=== PATIENT | male | born 1965 | race Caucasian/White ===

== ENCOUNTER → 2020-06-18 13:13 | Outpatient (BNVA) | payer OTHER, SELFPAY | PROVIDERS: PCP Nurse Practitioner Primary Care; Referring Provider Nurse Practitioner Primary Care; Visit Provider Surgery | DX: Z12.11 Encounter for screening for malignant neoplasm of colon (principal) | CPT/HCPCS: 99202 ==

== ENCOUNTER 2020-08-01 07:39 | Day surgery (SDC) | payer OTHER, SELFPAY ==
[2020-07-28 10:21] VITALS: BMI 26.6
--- NOTE | 2020-07-31 10:35 | HO.ANESPROP2 ---
Documented by User: Cindy Mora 07/31/20 10:37 HPI - Anesthesia Eval Consult details Narrative: 55yo M for Colonoscopy +ETOH/past substance abuse - ? amt or last used PMFSH Past Medical History Medical History Alcohol abuse Anxiety Back pain BPH (benign prostatic hyperplasia) Colon cancer screening Depression GERD (gastroesophageal reflux disease) Gout High cholesterol HTN (hypertension) Hx of substance abuse Family History Family History Mother History of brain cancer Surgical History Surgical History No significant past surgical history Social History Social History (Updated 06/18/20 @ 13:30 by CHU Morales) Alcohol intake: current Smoking Status: Current every day smoker Packs Per Day: 0.5 Cigarettes Per Day: 10.0 Years Smoked: 30 Smoked in Last 30 Days: Yes Use of substances other than those prescribed or required for medical reasons: Yes Substance Use Frequency: Occasionally Advance Directives: No Advance Directives Information Provided: No Advance Directives on File: No Meds Allergies Allergy/AdvReac Type Severity Reaction Status Date / Time seasonal/environmental Allergy Intermediate Eye Uncoded 08/01/20 07:47 Swelling Home Medications Medication Instructions Recorded Confirmed Type allopurinol 300 mg tablet 600 mg PO DAILY 06/18/20 07/28/20 History clonidine HCl 0.1 mg tablet 0.1 mg PO BID 06/18/20 07/28/20 History divalproex 500 mg tablet,delayed 1,000 mg PO BID 06/18/20 07/28/20 History release ergocalciferol (vitamin D2) 1,250 1,250 mcg PO QWEEK 06/18/20 07/28/20 History mcg (50,000 unit) capsule ibuprofen 600 mg tablet 600 mg PO QID 06/18/20 07/28/20 History lisinopril 20 mg tablet 20 mg PO DAILY 06/18/20 07/28/20 History loratadine 10 mg tablet 10 mg PO DAILY PRN 06/18/20 07/28/20 History olanzapine 20 mg tablet 20 mg PO BEDTIME 06/18/20 07/28/20 History omeprazole 20 mg capsule,delayed 20 mg PO DAILY 06/18/20 07/28/20 History release quetiapine 200 mg tablet 200 mg PO BEDTIME 06/18/20 07/28/20 History valacyclovir 500 mg tablet 500 mg PO DAILY 06/18/20 07/28/20 History Exam Exam Date and Time: July 31, 2020 1035 Height,Weight and Vital Signs: Height 5 ft 11 in Weight 86.636 kg Assessment and Plan Assessment Anesthesia Assessment: Chart Reviewed Documented by User: Monica Shah 08/01/20 08:05 PMFSH Past Medical History Medical History Alcohol abuse Anxiety Back pain BPH (benign prostatic hyperplasia) Colon cancer screening Depression GERD (gastroesophageal reflux disease) Gout High cholesterol HTN (hypertension) Hx of substance abuse Family History Family History Mother History of brain cancer Surgical History Surgical History No significant past surgical history Social History Social History (Updated 06/18/20 @ 13:30 by CHU Morales) Alcohol intake: current Smoking Status: Current every day smoker Packs Per Day: 0.5 Cigarettes Per Day: 10.0 Years Smoked: 30 Smoked in Last 30 Days: Yes Use of substances other than those prescribed or required for medical reasons: Yes Substance Use Frequency: Occasionally Advance Directives: No Advance Directives Information Provided: No Advance Directives on File: No Meds Allergies Allergy/AdvReac Type Severity Reaction Status Date / Time seasonal/environmental Allergy Intermediate Eye Uncoded 08/01/20 07:47 Swelling Home Medications Medication Instructions Recorded Confirmed Type allopurinol 300 mg tablet 600 mg PO DAILY 06/18/20 07/28/20 History clonidine HCl 0.1 mg tablet 0.1 mg PO BID 06/18/20 07/28/20 History divalproex 500 mg tablet,delayed 1,000 mg PO BID 06/18/20 07/28/20 History release ergocalciferol (vitamin D2) 1,250 1,250 mcg PO QWEEK 06/18/20 07/28/20 History mcg (50,000 unit) capsule ibuprofen 600 mg tablet 600 mg PO QID 06/18/20 07/28/20 History lisinopril 20 mg tablet 20 mg PO DAILY 06/18/20 07/28/20 History loratadine 10 mg tablet 10 mg PO DAILY PRN 06/18/20 07/28/20 History olanzapine 20 mg tablet 20 mg PO BEDTIME 06/18/20 07/28/20 History omeprazole 20 mg capsule,delayed 20 mg PO DAILY 06/18/20 07/28/20 History release quetiapine 200 mg tablet 200 mg PO BEDTIME 06/18/20 07/28/20 History valacyclovir 500 mg tablet 500 mg PO DAILY 06/18/20 07/28/20 History Exam Airway Mallampati Class: II TM Dist: >3cm Neck ROM: Full Heart: RRR Lungs: CTA
[2020-08-01 08:05] VITALS: BP 126/84; PULSE 83; RESP 18; TEMP 36.8; O2SAT 97
--- NOTE | 2020-08-01 08:06 | P.HPSUR_ITS ---
Pre-Procedural Eval Section B Chief Complaint: screening Details of Present Illness: for screening colonoscopy Relevant Family History (Specify if Yes): No Relevant Social History: None Present Medications: see Short Stay Collaborative assessment Medical History: Significant History (bph) Allergies: Allergies Allergy/AdvReac Type Severity Reaction Status Date / Time seasonal/environmental Allergy Intermediate Eye Uncoded 08/01/20 07:47 Swelling Review of Systems Sugical H&P ROS: Negative: Constitution, Cardiovascular, Respiratory, Neurological, Psychiatric, Hem-Onc, Allergic/Immunologic, Gastrointestinal, Genitourinary, Musculoskeletal, Integumentary, Endocrine and Eyes/ Ears/Nose/Throat Exam Surgical H&P Exam: Normal: HEENT, Normal: Heart, Normal: Lungs, Normal: Extremities, Normal: Abdomen, Normal: Skin and Normal: Neurological Plan Diagnosis/Plan: Unchanged I have reviewed the history and physical and performed a pertinent physical examination on my patient. No changes have occurred unless specified.
[2020-08-01] MEDS: Lactated Ringers 1,000 ML 100 ML IVCONT (08:14)
[2020-08-01 09:00] VITALS: BP 101/66; PULSE 78; RESP 14; TEMP 36.4; O2SAT 97
--- NOTE | 2020-08-01 09:04 | PM.OP ---
Brief Operative Note Date of Service: 08/01/20 Pre-op diagnosis: colon ca screen Post-op diagnosis: other (flat polyp, hepatic flexure, small polyp level 20 and 10) Procedure: colonoscopy, polypectomy with forceps x 1, with hot snare x 2 Surgeon: Harsha Kemp MD Anesthesia: MAC Estimated blood loss (mL): 3 Pathology: other (polyps x 3) Condition: stable Disposition: PACU
[2020-08-01 09:15] VITALS: BP 114/83; PULSE 77; RESP 16; O2SAT 100
--- NOTE | 2020-08-01 09:26 | HO.POSTANES ---
Post Anesthesia Evaluation Post Anesthesia Evaluation Vital Signs: Vital Signs Temp Pulse Resp BP Pulse Ox 08/01/20 09:15 77 16 114/83 100 08/01/20 09:00 97.6 F 78 14 101/66 97 08/01/20 08:05 98.3 F 83 18 126/84 97 Anesthesia: Monitored Mental Status: Awake Pain Control: Satisfactory Nausea/Vomiting: None Hydration: Adequate Anesthesia-Related Issues: No Anes. Related Issues
[2020-08-01 09:30] VITALS: BP 133/86; PULSE 77; RESP 16; TEMP 36.5; O2SAT 97
--- NOTE | 2020-08-01 10:06 | OP_ITS ---
SURGEON: Harsha Kemp MD INDICATIONS: The patient is a 55-year-old male referred for screening colonoscopy. He understood the technique of procedure. The patient is aware of the risks, benefits, and alternatives. PREOPERATIVE DIAGNOSIS: Colon cancer screening. POSTOPERATIVE DIAGNOSIS: PROCEDURE PERFORMED: Colonoscopy with polypectomy of a flat polyp at the hepatic flexure using cold forceps, polypectomy using hot snare of a small polyp at level 20, and polypectomy using hot snare of a polyp at level 10 cm. ESTIMATED BLOOD LOSS: COMPLICATIONS: ANESTHESIA: ASSISTANTS: SPECIMENS: POSTOPERATIVE DIAGNOSES: 1. Flat polyp about 1 cm in size, at the hepatic flexure. 2. Small polyp about 5 mm at level 20 cm and small polyp about 5 mm at level 10 cm. DESCRIPTION OF PROCEDURE: The patient was brought to the operating, placed in left lateral decubitus position under monitored anesthesia care. A full digital rectal exam was done. There were no palpable anal canal lesions. The tip of the Olympus colonoscope was introduced gently through the anal orifice, advanced with insufflation all the way to the cecum. The cecum was intubated. The cecum was identified by visualization of the ileocecal valve as well as the appendiceal orifice, but the cecal mucosa was unremarkable. The scope was gradually withdrawn with careful examination of the entire colonic mucosa being done with scope withdrawal. The patient had some segments of colon with thin amount of stool, so we had to do periodic irrigation and suctioning. It was however unlikely that any lesion may have been missed. There was note of a flat polyp on a fold in the hepatic flexure. This was about 1 cm and was elongated in shape. We proceeded to remove this with multiple bites of cold forceps. It was difficult to ascertain whether this was completely removed in view of the blood that was seen on the polypectomy site. Proceeded to carefully withdraw the scope with careful examination of the rest of the colonic mucosa. There was note of a small polyp about 5 mm at level 20 and this was removed using hot snare. A polyp at level 10 cm was also removed using hot snare. The rest of the rectum and anal canal were unremarkable, but the scope was then withdrawn completely with de-sufflation. The patient tolerated the procedure well and there were no complications noted. In view of the presence of the flat polyp at the hepatic flexure, I would recommend repeating the colonoscopy in the next 6-12 months depending on the path report. I will discuss with the patient in the office. MD GRAY Guevara/MICHELLE / [id number] MTDD
== END 2020-08-01 10:15 | disposition home or self-care (01) ==
PROVIDERS: PCP Nurse Practitioner Primary Care; Visit Provider Surgery
PROC: 0DJD8ZZ Inspection of Lower Intestinal Tract, Via Natural or Artificial Opening Endoscopic (ICD-10-PCS; CPT 45378; principal; 2020-08-01 08:30)
DX: Z12.11 Encounter for screening for malignant neoplasm of colon (principal); D12.3 Benign neoplasm of transverse colon; D12.5 Benign neoplasm of sigmoid colon; D12.8 Benign neoplasm of rectum; N40.0 Benign prostatic hyperplasia without lower urinary tract symptoms; I10 Essential (primary) hypertension; F32.9 Major depressive disorder, single episode, unspecified; F10.10 Alcohol abuse, uncomplicated; F19.11 Other psychoactive substance abuse, in remission; F17.210 Nicotine dependence, cigarettes, uncomplicated; Z80.8 Family history of malignant neoplasm of other organs or systems
CPT/HCPCS: 45385; 45380; 88305

== ENCOUNTER → 2020-08-18 15:10 | Outpatient (BNVA) | payer OTHER, SELFPAY | PROVIDERS: PCP Nurse Practitioner Primary Care; Visit Provider Surgery | DX: D12.6 Benign neoplasm of colon, unspecified (principal) | CPT/HCPCS: 99212 ==

== ENCOUNTER 2020-10-07 10:31 | Outpatient (REF) | payer OTHER, SELFPAY ==
--- NOTE | ~2020-10-07 | XR_ITS ---
EXAMINATION: XR FOOT, RIGHT CLINICAL INFORMATION: Pain right great toe COMPARISON: None TECHNIQUE: AP, lateral, and oblique views of the right foot. FINDINGS: Bone alignment is normal. No fracture or dislocation is seen. 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 Joint spaces are otherwise normal. Soft tissues are normal. XR/XR foot RT min 3V IMPRESSION: Degenerative change at the first MTP joint.
== END 2020-10-07 10:32 | disposition home or self-care (01) ==
LOC: HO.XRAY 10:31
PROVIDERS: PCP Nurse Practitioner Primary Care; Visit Provider Nurse Practitioner Family
DX: M79.674 Pain in right toe(s) (principal)
CPT/HCPCS: 73630

== ENCOUNTER → 2021-04-01 15:42 | Outpatient (BNVA) | payer OTHER, SELFPAY | PROVIDERS: PCP Nurse Practitioner Primary Care; Referring Provider Nurse Practitioner Primary Care; Visit Provider Surgery | DX: Z86.010 Personal history of colon polyps (principal) | CPT/HCPCS: 99212 ==

== ENCOUNTER 2021-05-29 08:48 | Day surgery (SDC) | payer OTHER, SELFPAY ==
[2021-05-21 18:51] VITALS: BMI 26.3
--- NOTE | 2021-05-28 08:55 | P.CONAN_ITS ---
Documented by User: Cindy Mora NP 05/28/21 08:56 HPI - Anesthesia Eval Consult details Narrative: 55yo M for Colonoscopy, Poss Polypectomy +recent cocaine use s/p colo with TIVA 07/2020 - repeat d/t flat polyp +ETOH/past substance abuse - ? amt or last used PMFSH Active Problems Active Problems: All Active Problems (Updated 04/01/21 @ 16:26 by Harsha Kemp MD) History of adenomatous polyp of colon (Acute) Tubular adenoma of colon (Acute) Colon cancer screening (Acute) BPH (benign prostatic hyperplasia) (Acute) Past Medical History Medical History Alcohol abuse Anxiety Back pain BPH (benign prostatic hyperplasia) Colon cancer screening Depression GERD (gastroesophageal reflux disease) Gout High cholesterol History of adenomatous polyp of colon HTN (hypertension) Hx of substance abuse Tubular adenoma of colon Family History Family History Mother History of brain cancer Surgical History Surgical History Hx of colonoscopy Social History Social History (Updated 05/21/21 @ 18:47 by Violet Evans RN) Alcohol intake: current Alcohol intake frequency: a few times a week Patient Tobacco Use Status: Current everyday Tobacco user Tobacco use type: Cigarette Cigarette Packs Per Day: 0.5 Cigarettes Per Day: 10 Years Smoked: 30 Smoked in Last 30 Days: Yes Patient Interested in Nicotine Replacement: No Patient Given Instructions on How to Stop Smoking: Yes Date Education Initiated: 05/21/21 Use of substances other than those prescribed or required for medical reasons: Yes Substance Use Type: Crack/Cocaine and Marijuana Substance Use Type Other:: 05/21/2021 COCAINE USE LAST WEEK PER PATIENT. ADVISED ABSTAIN FROM USE Substance Use Frequency: Monthly Substance Use Frequency Other:: COCAINE Are you DNR?: No Advance Directives: No Advance Directives Information Provided: No Advance Directives on File: No Recently lost weight without trying: No Nutrition Risks: No Nutritional Risk Meds Allergies Allergy/AdvReac Type Severity Reaction Status Date / Time seasonal/environmental Allergy Intermediate Eye Uncoded 08/01/20 07:47 Swelling Home Medications Medication Instructions Recorded Confirmed Last Taken Type allopurinol 300 mg tablet 600 mg PO DAILY 06/18/20 05/21/21 Unknown History clonidine HCl 0.1 mg tablet 0.1 mg PO BID 06/18/20 05/21/21 Unknown History divalproex 500 mg tablet,delayed 1,000 mg PO BID 06/18/20 05/21/21 Unknown History release ergocalciferol (vitamin D2) 1,250 1,250 mcg PO QWEEK 06/18/20 05/21/21 Unknown History mcg (50,000 unit) capsule ibuprofen 600 mg tablet 600 mg PO QID PRN 06/18/20 05/21/21 Unknown History lisinopril 20 mg tablet 20 mg PO DAILY 06/18/20 05/21/21 Unknown History loratadine 10 mg tablet 10 mg PO DAILY PRN 06/18/20 05/21/21 Unknown History olanzapine 20 mg tablet 20 mg PO BEDTIME 06/18/20 05/21/21 Unknown History omeprazole 20 mg capsule,delayed 20 mg PO DAILY 06/18/20 05/21/21 Unknown History release quetiapine 200 mg tablet 200 mg PO BEDTIME 06/18/20 05/21/21 Unknown History valacyclovir 500 mg tablet 500 mg PO DAILY 06/18/20 05/21/21 Unknown History Exam Exam Date and Time: May 28, 2021 0855 Height,Weight and Vital Signs: Height 5 ft 11 in Weight 85.729 kg Assessment and Plan Assessment Anesthesia Assessment: Chart Reviewed Documented by User: Adolph Alaniz MD 05/29/21 09:28 [facility] Past Medical History Medical History Alcohol abuse Anxiety Back pain BPH (benign prostatic hyperplasia) Colon cancer screening Depression GERD (gastroesophageal reflux disease) Gout High cholesterol History of adenomatous polyp of colon HTN (hypertension) Hx of substance abuse Tubular adenoma of colon Family History Family History Mother History of brain cancer Family history of problems with anesthesia: No Surgical History Surgical History Hx of colonoscopy History of Problems with Anesthesia: No Social History Social History (Updated 05/21/21 @ 18:47 by Violet Evans RN) Alcohol intake: current Alcohol intake frequency: a few times a week Patient Tobacco Use Status: Current everyday Tobacco user Tobacco use type: Cigarette Cigarette Packs Per Day: 0.5 Cigarettes Per Day: 10 Years Smoked: 30 Smoked in Last 30 Days: Yes Patient Interested in Nicotine Replacement: No Patient Given Instructions on How to Stop Smoking: Yes Date Education Initiated: 05/21/21 Use of substances other than those prescribed or required for medical reasons: Yes Substance Use Type: Crack/Cocaine and Marijuana Substance Use Type Other:: 05/21/2021 COCAINE USE LAST WEEK PER PATIENT. ADVISED ABSTAIN FROM USE Substance Use Frequency: Monthly Substance Use Frequency Other:: COCAINE Are you DNR?: No Advance Directives: No Advance Directives Information Provided: No Advance Directives on File: No Recently lost weight without trying: No Nutrition Risks: No Nutritional Risk Meds Allergies Allergy/AdvReac Type Severity Reaction Status Date / Time seasonal/environmental Allergy Intermediate Eye Uncoded 08/01/20 07:47 Swelling Home Medications Medication Instructions Recorded Confirmed Last Taken Type allopurinol 300 mg tablet 600 mg PO DAILY 06/18/20 05/21/21 Unknown History clonidine HCl 0.1 mg tablet 0.1 mg PO BID 06/18/20 05/21/21 Unknown History divalproex 500 mg tablet,delayed 1,000 mg PO BID 06/18/20 05/21/21 Unknown History release ergocalciferol (vitamin D2) 1,250 1,250 mcg PO QWEEK 06/18/20 05/21/21 Unknown History mcg (50,000 unit) capsule ibuprofen 600 mg tablet 600 mg PO QID PRN 06/18/20 05/21/21 Unknown History lisinopril 20 mg tablet 20 mg PO DAILY 06/18/20 05/21/21 Unknown History loratadine 10 mg tablet 10 mg PO DAILY PRN 06/18/20 05/21/21 Unknown History olanzapine 20 mg tablet 20 mg PO BEDTIME 06/18/20 05/21/21 Unknown History omeprazole 20 mg capsule,delayed 20 mg PO DAILY 06/18/20 05/21/21 Unknown History release quetiapine 200 mg tablet 200 mg PO BEDTIME 06/18/20 05/21/21 Unknown History valacyclovir 500 mg tablet 500 mg PO DAILY 06/18/20 05/21/21 Unknown History Exam Airway Mallampati Class: II TM Dist: >3cm Neck ROM: Full Loose/Missing/Broken Teeth: No Heart: ok Lungs: ok Assessment and Plan Final Anesthetic Review Family History of Problems with Anesthesia: No History of Problems with Anesthesia: No NPO: Yes ASA Class: III Final Preanesthetic Review: No Changes in Pt Med Stat, Meds/Allgs Chart Reviewed, Consent Obtained/Reviewed and Anes Risks/Benef Reviewed Patient Risk: Intermediate Procedure Risk: Low Anesthetic Plan Anesthetic Plan: GA and Agree w/ Assess. and Plan Disposition: Standard PACU
[2021-05-29 09:32] VITALS: BP 137/93; PULSE 74; RESP 20; TEMP 36.1; O2SAT 98
[2021-05-29 09:47] LABS: Amphetamine Screen Urine Not Detected (Not Detect); Barbiturates, Urine Not Detected (Not Detect); Benzodiazepines Screen Urine Not Detected (Not Detect); Cannabinoid Screen Urine POSITIVE (Not Detect); Cocaine Screen Urine POSITIVE (Not Detect); Fentanyl, urine Not Detected (Not Detect); Opiate Screen Urine Not Detected (Not Detect); Phencyclidine Screen Urine Not Detected (Not Detect)
--- NOTE | 2021-05-29 09:48 | MHC.SHP ---
Pre-Procedural Eval Section A Date of Service: 05/29/21 Section B Chief Complaint: History of adenomatous polyp of colon Details of Present Illness: He has a history of a tubular adenoma on the hepatic flexure removed piecemeal last July, Relevant Family History (Specify if Yes): No Relevant Social History: Other (specify) (Uses marijuana and cocaine) Present Medications: see Short Stay Collaborative assessment Medical History: Significant History (BPH) History of Previous Operations: No relevant previous surgery Allergies: Allergies Allergy/AdvReac Type Severity Reaction Status Date / Time seasonal/environmental Allergy Intermediate Eye Uncoded 08/01/20 07:47 Swelling Review of Systems Sugical H&P ROS: Negative: Constitution, Cardiovascular, Respiratory, Neurological, Psychiatric, Hem-Onc, Allergic/Immunologic, Gastrointestinal, Genitourinary, Musculoskeletal, Integumentary, Endocrine and Eyes/Ears/Nose/Throat Exam Surgical H&P Exam: Normal: HEENT, Normal: Heart, Normal: Lungs, Normal: Extremities, Normal: Abdomen, Normal: Skin and Normal: Neurological Plan Diagnosis/Plan: Unchanged I have reviewed the history and physical and performed a pertinent physical examination on my patient. No changes have occurred unless specified.
[2021-05-29] MEDS: Lactated Ringers 1,000 ML 100 ML IVCONT (10:00)
--- NOTE | 2021-05-29 10:31 | P.OP_ITS ---
Operative Note Operative Note Date of Service: 05/29/21 Narrative: Preop diagnosis: History of tubular adenoma at hepatic flexure Postop diagnosis: polyp in hepatic flexure, relatively flat, about 8 mm, and suboptimal bowel prep Procedure: Colonoscopy with polypectomy using cold forceps Surgeon: Harsha Kemp MD Patient is a 55-year-old male who had undergone anoscopy last July 2020 and was noted to have a flat polyp at hepatic flexure which was removed piecemeal. I recommended repeating this because of the relatively flat nature of the polyp. I explained to him the technique of the procedure as well as the risks, benefits, and alternatives. He was brought to the operating room and placed in left lateral decubitus position under monitored anesthesia care. A full digital rectal was done. There were no palpable anal lesions. The tip of the Olympus colonoscope was gently introduced through the anal orifice and advanced with insufflation all the cecum. The cecum was intubated the cecum was identified by visualization of the ileocecal valve as well as appendiceal orifice. The cecal mucosa was unremarkable. The scope was gradually withdrawn with careful examination of the entire colonic mucosa being done with scope withdrawal. The patient had multiple segments of the colon with thin stool so we had to copiously irrigate suction out to achieve good visualization. There was note of the pre flat polyp in the hepatic flexure. There was removed using multiple bites of cold forceps. This about 7-8 mm in size. There was note of good hemostasis afterwards. Continued to withdraw the scope with careful examination of the entire colonic mucosa. Again I would see the bowel prep was suboptimal in view of the multiple segments with stool. The rectum was reached and there were no lesions seen. The anal canal was unremarkable. The scope was then withdrawn completely with desufflation. The patient tolerated the procedure well. There were no complication noted. We will wait for the path report and plan on repeating the colonoscopy in 6-12 mo nths again in view of the flat nature of the polyp and suboptimal prep.
[2021-05-29 10:38] VITALS: BP 100/66; PULSE 77; RESP 20; TEMP 36.1; O2SAT 96
[2021-05-29 10:53] VITALS: BP 145/89; PULSE 57; RESP 20; O2SAT 99
[2021-05-29 11:00] VITALS: BP 146/68; PULSE 76; RESP 18; TEMP 36.1; O2SAT 99
== END 2021-05-29 12:13 | disposition home or self-care (01) ==
PROVIDERS: Nurse Practitioner; PCP Nurse Practitioner Primary Care; Visit Provider Surgery
PROC: 0DJD8ZZ Inspection of Lower Intestinal Tract, Via Natural or Artificial Opening Endoscopic (ICD-10-PCS; CPT 45378; principal; 2021-05-29 09:50)
DX: Z12.11 Encounter for screening for malignant neoplasm of colon (principal); Z86.010 Personal history of colon polyps; D12.3 Benign neoplasm of transverse colon; K21.9 Gastro-esophageal reflux disease without esophagitis; I10 Essential (primary) hypertension; M10.9 Gout, unspecified; F10.10 Alcohol abuse, uncomplicated; F17.210 Nicotine dependence, cigarettes, uncomplicated
CPT/HCPCS: 45380; 80307; 88305; J2250; J3010

== ENCOUNTER → 2021-06-24 11:34 | Outpatient (BNVA) | payer OTHER, SELFPAY | PROVIDERS: PCP Nurse Practitioner Primary Care; Referring Provider Nurse Practitioner Primary Care; Visit Provider Surgery | DX: D12.6 Benign neoplasm of colon, unspecified (principal) | CPT/HCPCS: 99212 ==

== ENCOUNTER 2021-12-16 10:00 | Outpatient (RCR) | payer OTHER, SELFPAY | END 2022-01-26 08:54 | disposition home or self-care (01) | LOC: HO.PT 10:00 | PROVIDERS: PCP Nurse Practitioner Primary Care; Visit Provider Nurse Practitioner Primary Care | DX: M25.511 Pain in right shoulder (principal) | CPT/HCPCS: 97110; 97161; 97530 ==

== ENCOUNTER → 2022-02-01 11:39 | Outpatient (BNVA) | payer OTHER, SELFPAY | PROVIDERS: PCP Nurse Practitioner Primary Care; Visit Provider Surgery | DX: Z86.010 Personal history of colon polyps (principal) | CPT/HCPCS: 99212 ==

== ENCOUNTER 2022-03-12 06:06 | Day surgery (SDC) | payer OTHER, SELFPAY ==
[2022-03-09 08:53] VITALS: BMI 26.4
[2022-03-12] VITALS (8 sets, daily range): BP systolic 88–170; BP diastolic 58–101; PULSE 56–83; RESP 16; TEMP 36.1; O2SAT 97–100
[2022-03-12 06:41] LABS: Amphetamine Screen Urine Not Detected (Not Detect); Barbiturates, Urine Not Detected (Not Detect); Benzodiazepines Screen Urine Not Detected (Not Detect); Cannabinoid Screen Urine POSITIVE (Not Detect); Cocaine Screen Urine POSITIVE (Not Detect); Fentanyl, urine Not Detected (Not Detect); Opiate Screen Urine Not Detected (Not Detect); Phencyclidine Screen Urine Not Detected (Not Detect)
--- NOTE | 2022-03-12 07:08 | PC.NURSE ---
pt reported he finished a little over half the prep for colonoscopy today. stated light brown soft almost liquid result. tiger text to Dr. Kemp, orders received to give one fleets enema. pt tolerated well. clear liquid yellow tint noted for result.
--- NOTE | 2022-03-12 07:10 | PC.NURSE ---
pt urine drug screen positive for cocaine and marijuana. pt states he has not used cocaine for at least 7 days. pt did use marijuana this morning. Dr. Alaniz, Dr. Mccoy and Dr. Kemp notified. Per Dr. Alaniz and Dr. Kemp ok to proceed with scheduled colonoscopy.
--- NOTE | 2022-03-12 07:16 | P.CONAN_ITS ---
HPI - Anesthesia Eval Consult details Narrative: For colonoscopy [facility] Active Problems Active Problems: All Active Problems (Updated 04/01/21 @ 16:26 by Harsha Kemp MD) History of adenomatous polyp of colon (Acute) Tubular adenoma of colon (Acute) Colon cancer screening (Acute) BPH (benign prostatic hyperplasia) (Acute) Past Medical History Medical History Alcohol abuse Anxiety Back pain BPH (benign prostatic hyperplasia) Colon cancer screening Depression GERD (gastroesophageal reflux disease) Gout High cholesterol History of adenomatous polyp of colon HTN (hypertension) Hx of substance abuse Tubular adenoma of colon Family History Family History Mother History of brain cancer Family history of problems with anesthesia: No Surgical History Surgical History (Updated 03/09/22 @ 08:48 by Lissy Swan RN) Hx of colonoscopy History of Problems with Anesthesia: No Social History Social History Alcohol intake: current Alcohol intake frequency: a few times a week Patient Tobacco Use Status: Current everyday Tobacco user Tobacco use type: Cigarette Cigarette Packs Per Day: 0.5 Cigarettes Per Day: 7.0 Years Smoked: 30 Use of substances other than those prescribed or required for medical reasons: Yes Substance Use Type: Crack/Cocaine and Marijuana Are you DNR?: No Advance Directives: No Advance Directives Information Provided: Yes Advance Directives on File: No Meds Allergies Allergy/AdvReac Type Severity Reaction Status Date / Time seasonal/environmental Allergy Intermediate Eye Uncoded 02/01/22 11:48 Swelling Home Medications Medication Instructions Recorded Confirmed Last Taken Type allopurinol 300 mg tablet 600 mg PO DAILY 06/18/20 03/09/22 Unknown History clonidine HCl 0.1 mg tablet 0.1 mg PO BID 06/18/20 03/09/22 Unknown History divalproex 500 mg tablet,delayed 1,000 mg PO BID 06/18/20 03/09/22 Unknown History release ergocalciferol (vitamin D2) 1,250 1,250 mcg PO QWEEK 06/18/20 03/09/22 Unknown History mcg (50,000 unit) capsule ibuprofen 600 mg tablet 600 mg PO QID PRN Pain 06/18/20 03/09/22 Unknown History lisinopril 20 mg tablet 20 mg PO DAILY 06/18/20 03/09/22 Unknown History loratadine 10 mg tablet 10 mg PO DAILY PRN Allergy Symptoms 06/18/20 03/09/22 Unknown History olanzapine 20 mg tablet 20 mg PO BEDTIME 06/18/20 03/09/22 Unknown History omeprazole 20 mg capsule,delayed 20 mg PO DAILY 06/18/20 03/09/22 Unknown History release quetiapine 200 mg tablet 200 mg PO BEDTIME 06/18/20 03/09/22 Unknown History valacyclovir 500 mg tablet 500 mg PO DAILY 06/18/20 03/09/22 Unknown History Exam Exam Date and Time: March 12, 2022 0716 Height,Weight and Vital Signs: Height 5 ft 11 in Weight 86.183 kg Last Vital Signs Temp 97.0 F 03/12/22 06:23 Pulse 72 03/12/22 06:23 Resp 16 03/12/22 06:23 BP 117/78 03/12/22 06:23 Pulse Ox 97 03/12/22 06:23 O2 Del Method 03/12/22 06:23 Pertinent Lab Results Pertinent Lab Results: Laboratory Tests 03/12/22 06:18 Urine Opiates Screen Not Detected Urine Fentanyl Screen Not Detected Ur Barbiturates Screen Not Detected Ur Phencyclidine Scrn Not Detected Ur Amphetamines Screen Not Detected U Benzodiazepines Scrn Not Detected Urine Cocaine Screen POSITIVE H U Marijuana (THC) Screen POSITIVE H Airway Mallampati Class: II TM Dist: >3cm Loose/Missing/Broken Teeth: No Heart: ok Lungs: ok Assessment and Plan Final Anesthetic Review Family History of Problems with Anesthesia: No History of Problems with Anesthesia: No NPO: Yes ASA Class: III Final Preanesthetic Review: No Changes in Pt Med Stat, Meds/Allgs Chart Reviewed, Consent Obtained/Reviewed and Anes Risks/Benef Reviewed Patient Risk: Intermediate Procedure Risk: Low Anesthetic Plan Anesthetic Plan: MAC: and Agree w/ Assess. and Plan Disposition: Standard PACU
[2022-03-12] MEDS: Lactated Ringers 1,000 ML 100 ML IVCONT (07:20)
--- NOTE | 2022-03-12 07:25 | MHC.SHP ---
Pre-Procedural Eval Section A Date of Service: 03/12/22 Section B Chief Complaint: hx of polyps Details of Present Illness: Has history of an adenomatous polyp in hepatic flexure Relevant Family History (Specify if Yes): No Relevant Social History: Other (specify) ( drug use) Present Medications: see Short Stay Collaborative assessment Medical History: Significant History ( history of drug use, BPH) History of Previous Operations: No relevant previous surgery Allergies: Allergies Allergy/AdvReac Type Severity Reaction Status Date / Time seasonal/environmental Allergy Intermediate Eye Uncoded 02/01/22 11:48 Swelling Review of Systems Sugical H&P ROS: Negative: Constitution, Cardiovascular, Respiratory, Neurological, Psychiatric, Hem-Onc, Allergic/Immunologic, Gastrointestinal, Genitourinary, Musculoskeletal, Integumentary, Endocrine and Eyes/Ears/Nose/Throat Exam Surgical H&P Exam: Normal: HEENT, Normal: Heart, Normal: Lungs, Normal: Extremities, Normal: Abdomen, Normal: Skin and Normal: Neurological Plan Diagnosis/Plan: Unchanged I have reviewed the history and physical and performed a pertinent physical examination on my patient. No changes have occurred unless specified.
--- NOTE | 2022-03-12 08:14 | W.PM.OPN ---
Operative Note Operative Note Date of Service: 03/12/22 Narrative: Preop diagnosis: History of adenomatous polyp Postop diagnosis: 1. Flat polyp at level 70 cm, probably about to 7 mm in size, with an adjacent small polyp 2-3 mm at the same level, both removed with bites of the cold forceps Procedure: Colonoscopy with polypectomy using cold forceps Surgeon: Harsha Kemp MD The patient is a 56-year-old male, who was a history of a flat tubular adenoma in hepatic flexure in the past. I had recommended the short interval colonoscopy tbecause of this. He understood the technique of the procedure and was aware of the risks, benefits, and alternatives He was brought to the operating room. He was placed in left lateral decubitus position under monitored anesthesia care. A full digital rectal exam was done after a surgical time-out. There were no palpable anal lesions in the anal canal. The scope was then gently inserted into the anal orifice and advanced with insufflation all the way to cecum. The cecum was intubated. The cecum was identified via visualization of the ileocecal valve as well as the appendiceal orifice. The cecal mucosa was unremarkable. The scope was gradually withdrawn with careful examination of the entire colonic mucosa being done with scope withdrawal. The patient had some segments of the colon with pools of her stools. We had to irrigate this and suction out. Other than that were able to achieve good visualization of the entire colonic mucosa any was unlikely that any lesion may have been missed. we made multiple passes at hepatic flexure where previous flat polyp had been seen and there were no lesions seen in this area. At level 70 cm, there was note of a flat polyp probably about 7 mm in size. Adjacent to this was a smaller polyp about 2 mm in size. Both of these were removed using multiple bites of the cold forceps. We then continued to withdraw the scope with careful examination of the rest of the colonic mucosa being done with scope withdrawal. There were no other lesions seen. The anal canal and the anal shelf were unremarkable. There were prominent oral hemorrhoids that were seen. The scope was then withdrawn completely with desufflation . The patient tolerated procedure well. There were no complications noted . Depending on the path report, I would recommend another colonoscopy within the next 3 to 5 years.
[2022-03-12] MEDS: hydrALAZINE HCl 20 MG/ML VIAL 10 MG IVPUSH ×2 (09:07→09:20)
== END 2022-03-12 10:18 | disposition home or self-care (01) ==
PROVIDERS: Nurse Practitioner; PCP Nurse Practitioner Primary Care; Visit Provider Surgery
PROC: 0DJD8ZZ Inspection of Lower Intestinal Tract, Via Natural or Artificial Opening Endoscopic (ICD-10-PCS; CPT 45378; principal; 2022-03-12 07:30)
DX: Z12.11 Encounter for screening for malignant neoplasm of colon (principal); Z86.010 Personal history of colon polyps; D12.4 Benign neoplasm of descending colon; K64.8 Other hemorrhoids; J30.2 Other seasonal allergic rhinitis; N40.0 Benign prostatic hyperplasia without lower urinary tract symptoms; K21.9 Gastro-esophageal reflux disease without esophagitis; M10.9 Gout, unspecified; E78.00 Pure hypercholesterolemia, unspecified; I10 Essential (primary) hypertension; Z79.899 Other long term (current) drug therapy; F17.210 Nicotine dependence, cigarettes, uncomplicated; F10.10 Alcohol abuse, uncomplicated; F14.10 Cocaine abuse, uncomplicated; F12.90 Cannabis use, unspecified, uncomplicated
CPT/HCPCS: 45380; 80307; 88305

== ENCOUNTER → 2022-11-24 10:53 | Outpatient (BNVA) | payer OTHER, SELFPAY | PROVIDERS: PCP Nurse Practitioner Primary Care; Referring Provider Nurse Practitioner Primary Care; Visit Provider Internal Medicine | DX: R07.2 Precordial pain (principal); R06.02 Shortness of breath; I10 Essential (primary) hypertension; E78.00 Pure hypercholesterolemia, unspecified; F14.10 Cocaine abuse, uncomplicated | CPT/HCPCS: 93005; 99202 ==

== ENCOUNTER → 2023-01-04 10:29 | Outpatient (REF) | payer OTHER, SELFPAY ==
--- NOTE | 2023-01-04 10:31 | CA_ITS ---
Acquisition Time: 2023-01-04 10:52:35 Total Exercise Time: 00:07:25 Test Indications: CHEST PAIN Medications: SEE H Protocol: VIKTORIA Max HR: 131 BPM 79% of Pred: 164 BPM Max BP: 184/090 mmHG Max Work Load: 9.1 METS Exercise stress test exercise 7 min 25 sec of Viktoria protocol achieiving 79% MPHR, with patients request to stop due to moderate shortness of breath, no chest discomfort, without arrythmia, with normotensive response to exercise, without EKG changes. Echo images obtained by tech at rest and immediately post peak exercise. Definity contrast used. Test reviewed with Dr. Ghosh. Referred By: Tobias Sexton Overread By: KAYLA ODOM
== END ==
LOC: HO.CARD 10:29
PROVIDERS: PCP Nurse Practitioner Primary Care; Visit Provider Internal Medicine
DX: R07.2 Precordial pain (principal); R06.02 Shortness of breath; F14.10 Cocaine abuse, uncomplicated
CPT/HCPCS: 93350; Q9957

== ENCOUNTER → 2023-01-19 14:18 | Outpatient (REF) | payer OTHER, SELFPAY ==
--- NOTE | 2023-01-19 14:24 | CA_ITS ---
Transthoracic Echocardiogram Patient (Last, First, Middle): Silvana Guerra, Gender: Male Date of : 1965 Age: 57 Procedure Date: 01/19/2023 Procedure Type: Transthoracic Echocardiogram Location: OP Height: 180.34 cm Weight: 85.73 kg BSA: 2.06 m2 Heart Rate: 78 bpm BP: 105 / 70 mmHg Underground Roof Bolter: JASWINDER Mohr MD: Tobias Sexton MD Outreach Professional: Johan Carey MD Symptoms: R07.2 - Precordial pain Study Quality: Fair ECG Rhythm: Sinus Conclusions: - 1. Mildly reduced LV ejection fraction 45-50% with grade 1 diastolic dysfunction 2. Normal cardiac valvular Doppler 3. Normal RV systolic pressure 4. Mildly dilated ascending aorta at 3.7 cm 5. No gross pericardial effusion Findings Left Ventricle Normal left ventricular cavity size. There is normal left ventricular wall thickness. The left ventricular systolic function is mildly decreased. The visually estimated ejection fraction is between 45-50%. Spectral Doppler is indicative of an impaired relaxation filling pattern. E/E prime ratio is <8, consistent with normal filling pressures. Evidence suggests grade I (mild) diastolic dysfunction. Peak GLS is -14.8%, which is reduced. Wall Motion Rest Echo Findings The basal inferior, basal anterolateral, basal inferoseptal, and basal inferolateral segments are hypokinetic. Right Ventricle Normal right ventricular cavity size and systolic function. Atria Both atria are normal in size. There is no evidence of interatrial shunt. Aortic Valve Normal aortic valve structure and function. There is no aortic valve stenosis. There is no aortic valve regurgitation. Mitral Valve Normal mitral valve structure and function. There is trace mitral valve regurgitation. There is no mitral valve stenosis. Pulmonic Valve The pulmonic valve is likely normal. Tricuspid Valve Normal tricuspid valve structure. Tricuspid regurgitation envelope is inadequate for calculation of right ventricular systolic pressure. Normal right atrial pressure. Great Vessels The pulmonary artery was not well visualized. There is mild dilatation of the ascending aorta measuring 3.70 cm. Venous The inferior vena cava is normal in size and collapses greater than 50% with inspiration. Pericardium/Pleural There is no evidence of pericardial effusion. Prior Study Comparison No prior study available for comparison. Measurements 2D Linear Measurements IVSd: 1.14 0.6-0.9/0.6-1.0 cm LVIDd: 4.78 3.9-5.3/4.2-5.9 cm LVIDd Index: 2.32 2.4-3.2/2.2-3.1 cm/m2 LVIDs: 3.84 2.0-3.6 cm LVPWd: 1.07 0.7-1.1 cm LA Diam: 3.60 2.7-3.8/3.0-4.0 cm LAIDs Index: 1.75 1.5-2.3 cm/m2 LV Mass: 241.61 67-162/88-224 g LV Mass Index: 117.29 43-95/49-115 g/m2 LVOT Diam: 2.10 3.0+(-)1.3 cm 2D Systolic Function EF 4C: 40.80 >55% EF 2C: 48.50 >55% EF BiP: 47.90 >55% Mitral Valve MV Pk E: 0.45 MV PK A: 0.66 MV Decel Time: 252.00 E/A: 0.70 E'Lateral: 5.00 E'Medial: 5.87 E/E' Med: 7.60 E/E' Lat: 9.00 PHT: 74.00 MVA PHT: 2.97 Decel [place]: 1.78 Aortic Valve AoV Pk Dilshad: 0.97 AoV Mn Dilshad: 0.74 AoV VTI: 0.18 AoV Pk Grad: 4.00 Aov Mn Grad: 2.00 TYLER Cont.VTI: 2.84 LVOT LVOT Pk Dilshad: 0.80 LVOT Mn Dilshad: 0.62 LVOT VTI: 0.15 LVOT Pk Grad: 3.00 LVOT Mn Grad: 2.00 LVOT Diam: 2.10 LVOT Area: 3.46 Diastolic Function MV Pk E: 0.45 MV Pk A: 0.66 E/A: 0.70 E'Medial: 5.87 E/E' Med: 7.60 E' Laterial: 5.00 E/E' Lat: 9.00 Right Ventricle TAPSE (mm): 17.50 TVS' Dilshad: 9.36 Tricuspid Valve RA Press: 3.00 Great Vessels Aorta Sinus of Valsalva: 4.00 2.0-3.5 cm Ao Asc: 3.70 2.1-3.4 cm Pulmonary Valve PV Pk Dilshad: 0.83 Peak PV Grad: 3.00 Updated in Other Vendor System with Status of Final Johan Carey MD electronically signed on 01/20/2023 4:17:23 PM with status of Final
== END ==
LOC: HO.CARD 14:18
PROVIDERS: PCP Nurse Practitioner Primary Care; Visit Provider Internal Medicine
DX: R07.2 Precordial pain (principal); R06.02 Shortness of breath; F14.10 Cocaine abuse, uncomplicated
CPT/HCPCS: 93306; 93356

== ENCOUNTER → 2023-01-19 14:24 | Outpatient (BNV) | payer OTHER, SELFPAY | PROVIDERS: PCP Nurse Practitioner Primary Care; Visit Provider Internal Medicine Cardiovascular Disease | DX: I51.9 Heart disease, unspecified (principal); R07.9 Chest pain, unspecified | CPT/HCPCS: 93306 ==

== ENCOUNTER 2023-03-16 13:54 | Outpatient (REF) | payer OTHER, SELFPAY ==
[2023-03-16 16:55] LABS: Uric Acid 3.9 mg/dL (3.4-7.0)
[2023-03-16 17:02] LABS: Microalbumin Urine < 5.0 mg/L
== END 2023-03-16 13:55 | disposition home or self-care (01) ==
LOC: HO.HHCL 13:54
PROVIDERS: Visit Provider Nurse Practitioner Primary Care
DX: I10 Essential (primary) hypertension (principal); M1A.0710 Idiopathic chronic gout, right ankle and foot, without tophus (tophi)
CPT/HCPCS: 36415; 82043; 82570; 84550

== ENCOUNTER 2023-04-01 12:53 | Outpatient (AMB) | payer OTHER, SELFPAY ==
[2023-04-01 12:54] VITALS: BP 124/80; PULSE 86; BMI 26.4
--- NOTE | 2023-04-01 12:54 | MHC.OFFVIS ---
Intake Vital Signs 04/01/23 12:54 Height 5 ft 11 in Weight 189 lb 9.561 oz BMI 26.4 BP 124/80 Blood Pressure Location Lt brachial Position Sitting Pulse 86 Intake Visit Reasons: follow up after CTA Intake Note: Follow-up after CTA c/o still having to stop when doing the stairs Wire Products Inspector Required: No Allergies seasonal/environmental Allergy (Intermediate, Uncoded 11/24/22 10:56) Eye Swelling Medication List - Last Reconciled 04/01/23 by Dariana Muse, LIZETH-C allopurinol 600 mg PO DAILY atorvastatin 10 mg PO DAILY clonidine HCl 0.1 mg PO BID divalproex 1,000 mg PO BID ergocalciferol (vitamin D2) 1,250 mcg PO QWEEK hydroxyzine pamoate 50 mg PO TID ibuprofen 600 mg PO QID PRN lisinopril 20 mg PO DAILY loratadine 10 mg PO DAILY PRN olanzapine 20 mg PO BEDTIME omeprazole 20 mg PO DAILY quetiapine 200 mg PO BEDTIME HPI follow up after CTA HPI Details Silvana is a 57-year-old male with past medical history of hypertension, substance abuse who had reported some chest discomfort and shortness of breath then underwent a stress echocardiogram, CTA of coronary arteries and echocardiogram and now presents for follow-up. Today he reports that he has generally been feeling well. He is not as bothered by chest discomfort. He has no clear exertional chest symptoms. He does have some shortness of breath with exertion. No palpitations, dizziness, presyncope, syncope, PND, orthopnea or edema. He says he works full-time at [employer] and does frequently walking which he tolerates well. He continues to use cocaine routinely. He also smokes marijuana. He says his alcohol use is periodically and social. He denies daily alcohol use. [facility] Medical History History of adenomatous polyp of colon Tubular adenoma of colon Hx of substance abuse Alcohol abuse Gout Back pain GERD (gastroesophageal reflux disease) Anxiety Depression High cholesterol HTN (hypertension) Colon cancer screening BPH (benign prostatic hyperplasia) Surgical History Hx of colonoscopy Family History Mother History of brain cancer Social History Alcohol intake: current Alcohol intake frequency: a few times a week Patient Tobacco Use Status: Current everyday Tobacco user Tobacco use type: Cigarette Cigarette Packs Per Day: 0.5 Cigarettes Per Day: 8 Years Smoked: 30 +/- Substance Use Type: Crack/Cocaine and Marijuana Review of Systems Const All systems reviewed & are unremarkable except as noted in HPI and below Denies chills, Denies fatigue, Denies fever(s), Denies frequent falls, Denies weakness, Denies weight gain and Denies weight loss ENT Denies dizziness Card Denies chest pain, Denies leg edema, Denies lightheadedness, Denies palpitations, Denies dyspnea, Denies dyspnea on exertion, Denies orthopnea and Denies other (loss of consciousness) Resp Denies cough, Denies dyspnea and Denies dyspnea on exertion GI Denies hematochezia and Denies change in stool character Musc Denies abnormal gait, Denies muscle weakness, Denies numbness, Denies radiating pain into limb and Denies tingling Neuro Denies abnormal gait, Denies dizziness, Denies frequent falls, Denies numbness, Denies tingling and Denies weakness Endo Denies fatigue and Denies palpitations Physical Exam Vital Signs: Last Vital Signs Pulse 86 04/01/23 12:54 BP 124/80 04/01/23 12:54 BMI result Body Mass Index 26.4 Const General: cooperative, healthy appearing, comfortable and no acute distress Orientation/consciousness: patient oriented x3 Neck Neck: Yes normal visual inspection Resp Effort & Inspection: normal respiratory effort Auscultation: clear to auscultation bilaterally, no crackles, no rales, no rhonchi and no wheezes Cardio Jugular venous distension: no JVD Rate: regular rate Rhythm: regular rhythm Heart sounds: S1 normal heart sound present, S2 normal heart sound present, no murmurs and no rubs Neuro General: patient oriented x3 Extrem General: Yes normal to inspection Psych Appearance: grossly normal Mental Status: mental status grossly normal Speech and movement: Normal speech and movement present Assessment & Plan Assessment & Plan (1) SOB (shortness of breath): Code(s): R06.02 - Shortness of breath Plan: Patient has some shortness of breath with activity. Previously reported chest discomfort which has since resolved. He underwent a echocardiogram on 01/19/2023 showing EF 45-50%, grade 1 diastolic dysfunction, normal valves, ascending aorta 3.7 cm. Exercise stress echo done on 01/04/2023 showed exercise 7-1/2 minutes with shortness of breath, no EKG changes and normal EF and wall motion with exercise, no evidence of ischemia. He did have a CTA of the coronary arteries done 03/25/2023 showing fairly mild coronary artery calcifications, no significant stenosis. Spent time reviewing all test results with him. He admits to ongoing cocaine use, marijuana use and occasional alcohol use. Spent time reviewing need to stop cocaine and alcohol completely as he has a mildly reduced EF. Risk of heart failure discussed. Signs and symptoms of Congestive heart failure reviewed. He says he states understanding in this is a wake-up call for him. Cardiac risk factor modification reviewed. Continue on atorvastatin with ideal LDL goal less than 100. Continue lisinopril for neurohormonal modulation and blood pressure control. He is not on beta-dang due to cocaine use. Cardiology follow-up in 1 year, sooner if needed. Will plan echocardiogram prior to that time. 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 Likely related to substance abuse (3) Cocaine abuse: Code(s): F14.10 - Cocaine abuse, uncomplicated (4) HTN (hypertension): Code(s): I10 - Essential (primary) hypertension Qualifiers: Hypertension type: primary hypertension Qualified Code(s): I10 - Essential (primary) hypertension Plan: Well controlled at present time. 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
== END 2023-04-01 13:19 | disposition home or self-care (01) ==
PROVIDERS: PCP Nurse Practitioner Primary Care; Visit Provider Nurse Practitioner Family
DX: R06.02 Shortness of breath (principal); I42.7 Cardiomyopathy due to drug and external agent; F14.10 Cocaine abuse, uncomplicated; I10 Essential (primary) hypertension
CPT/HCPCS: 99213

== ENCOUNTER → 2023-04-01 12:53 | Outpatient (BNVA) | payer OTHER, SELFPAY | PROVIDERS: PCP Nurse Practitioner Primary Care; Visit Provider Nurse Practitioner Family | DX: R06.02 Shortness of breath (principal); I42.7 Cardiomyopathy due to drug and external agent; I10 Essential (primary) hypertension; F14.10 Cocaine abuse, uncomplicated; Z79.899 Other long term (current) drug therapy | CPT/HCPCS: 99212 ==

== ENCOUNTER 2023-08-10 09:53 | Outpatient (REF) | payer OTHER, MEDICAID, SELFPAY ==
--- NOTE | ~2023-08-10 | XR_ITS ---
EXAMINATION: XR HAND, RIGHT CLINICAL INFORMATION: Right hand pain COMPARISON: None available. TECHNIQUE: PA, lateral, and oblique views of the right hand. FINDINGS: BONES: Bony structures are intact. The right thumb distal phalanx is markedly shortened, probably a normal variant. There is no focal bone destruction or periosteal reaction seen. JOINTS: Alignment of joints is normal. SOFT TISSUE: Soft tissue is normal. No radiopaque foreign body or abnormal air collection is seen. XR/XR hand RT min 3V IMPRESSION: 1. Normal x-rays of right hand. No fracture or dislocation or signs of osteomyelitis are found.
== END 2023-08-10 09:54 | disposition home or self-care (01) ==
LOC: HO.HOSX 09:53
PROVIDERS: Visit Provider Physician Assistant
DX: M79.641 Pain in right hand (principal); L72.0 Epidermal cyst
CPT/HCPCS: 73130; 99202

== ENCOUNTER 2023-08-10 14:18 | Outpatient (AMB) | payer OTHER, SELFPAY ==
--- NOTE | 2023-08-10 14:29 | A.OFFVIS_ITS ---
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 Pt states this happened about 6 or more months ago. Pt states it might be from him using his hands at work pulling and pushing things. Pt states it is painful when it is touched. Pt denies any numbness or tingling in his hands at this time. 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 He reports he has a cyst on his right hand since about 6 months which he believes is due to using his hands for pushing and pulling things at work. He currently states he has mild pain at the cyst which is tender to touch. His pain is aggravated with grabbing objects. He denies any locking of hand, numbness or tingling. [facility] Medical History History of adenomatous polyp of colon Tubular adenoma of colon Hx of substance abuse Alcohol abuse Gout Back pain GERD (gastroesophageal reflux disease) Anxiety Depression High cholesterol HTN (hypertension) Colon cancer screening BPH (benign prostatic hyperplasia) Surgical History Hx of colonoscopy Family History Mother History of brain cancer Social History Alcohol intake: current Alcohol intake frequency: a few times a week Patient Tobacco Use Status: Current everyday Tobacco user Tobacco use type: Cigarette Cigarette Packs Per Day: 0.5 Cigarettes Per Day: 8 Years Smoked: 30 +/- Substance Use Type: Crack/Cocaine and Marijuana Review of Systems Const All systems reviewed & are unremarkable except as noted in HPI and below Physical Exam Const General: cooperative, healthy appearing, comfortable, no acute distress, well developed and alert Orientation/consciousness: patient oriented x3 HEENT Head: Yes normal to inspection, Yes normocephalic and Yes atraumatic Eyes General: appearance normal, both eyes and all related structures Resp Effort & Inspection: normal respiratory effort and able to speak in complete sentences Cardio Rate: regular rate Peripheral pulses: Peripheral pulses 2+ throughout GI Palpation (GI): Soft to palpation Skin Lesions: no lesions Rashes: no rashes Neuro General: patient oriented x3 Extrem Other: Right hand: Normal to inspection. There is an area along the 2nd palmar crease inline with the middle finger that resembles a callous but is a size of a marble. It is firm and there is no purulence. No concerns for an infection. It is mildly tender to palpation and there is no evidence of fibrotic cord like structures. No catching or triggering of the finger. NVI. Results Reviewed Results Reviewed: X-rays of the right hand obtained in the office today is negative for any acute or chronic abnormalities. Assessment & Plan Assessment & Plan (1) Epidermal inclusion cyst: Code(s): L72.0 - Epidermal cyst Plan Case was discussed with Dr. Solis in the office today. The decision was made to order an MRI of the right hand to further evaluate the structures in the sense that if he does wants this removed, we can know its location and consistency. He is content with this plan and will see me back once the scan is complete. Orders: Orders XR hand RT min 3V Today M79.641 - Pain in right hand MR hand RT wo con Today L72.0 - Epidermal cyst Patient Instructions: Scribed for Salome Chatterjee PA-C, by Narciso Varela medical biller coder, on 08/10/2023 at 2:30 PM EST. ISalome PA-C, have personally reviewed and agree with the information entered by the scribe. Coding Level of Care Code New Pt Level 3 (93644) Diagnoses Epidermal inclusion cyst L72.0
== END 2023-08-10 14:59 | disposition home or self-care (01) ==
PROVIDERS: PCP Nurse Practitioner Primary Care; Visit Provider Physician Assistant
DX: L72.0 Epidermal cyst (principal)
CPT/HCPCS: 99203

== ENCOUNTER 2023-09-14 10:40 | Outpatient (REF) | payer OTHER, MEDICAID, SELFPAY ==
[2023-09-14 11:21] LABS: MANUAL DIFF FLAG NO
[2023-09-14 11:27] LABS: Basophils Percent Auto 0.4 % (0-2); Eosinophils Absolute Auto 0.1 X10*3/uL (0.0-0.4); Eosinophils Percent Auto 1.8 % (0-4); Hematocrit 37.2 % (42.0-52.0); Imm Gran Abs Auto 0.08 X10*3/uL (0.00-0.03); Lymphocytes Absolute Auto 2.3 X10*3/uL (1.2-4.9); Lymphocytes Percent Auto 29.4 % (20-40); Mean Corpuscular HGB Conc 34.9 g/dl (31.0-36.0); Mean Corpuscular Hemoglobin 35.9 pg (27.0-33.0); Mean Corpuscular Volume 102.8 fL (80.0-98.0); Mean Platelet Volume 10.1 fL (9.4-12.4); Monocytes Absolute Auto 0.5 X10*3/uL (0.1-1.2); Neutrophils Absolute Auto 4.6 x10*3/uL (2.0-8.3); Neutrophils Percent Auto 60.4 % (45-73); Platelet Count 171 X10*3/uL (160-400); Red Blood Count 3.62 X10*6/uL (4.60-5.80); Red Cell Distribution Width 13.4 % (11.0-16.0); White Blood Count 7.7 X10*3/uL (4.8-10.8)
[2023-09-14 12:40] LABS: Valproate 78.9 mcg/mL (50.0-100.0)
[2023-09-14 12:43] LABS: Alanine Aminotransferase 27 U/L (0-40); Albumin Level 4.3 g/dL (3.5-5.0); Alkaline Phosphatase 73 U/L (39-117); Anion Gap 11 (12-20); Aspartate Amino Transferase 24 U/L (5-37); Bilirubin Direct 0.1 mg/dL (0.0-0.5); Bilirubin Total 0.3 mg/dL (0.0-1.0); Blood Urea Nitrogen 14 mg/dL (9-16); Calcium 9.1 mg/dL (8.4-10.2); Carbon Dioxide 27 mmol/L (22-29); Chloride 107 mmol/L (96-108); Cholesterol 178 mg/dL (<200); Estimated Glomerular Filt Rate > 60; Glucose Random 131 mg/dL (60-115); HDL Cholesterol 40 mg/dL (>40); LDL Cholesterol Calculated 63 mg/dL (<100); Potassium 3.5 mmol/L (3.3-5.1); Sodium 141 mmol/L (135-145); Total Protein 6.6 g/dL (6.5-8.0); Triglycerides 377 mg/dL (<150)
== END 2023-09-14 10:41 | disposition home or self-care (01) ==
LOC: HO.HHCL 10:40
PROVIDERS: Visit Provider Registered Nurse
DX: Z79.899 Other long term (current) drug therapy (principal)
CPT/HCPCS: 36415; 80053; 80061; 80164; 82248; 85025

== ENCOUNTER 2023-11-01 16:05 | Outpatient (REF) | payer OTHER, SELFPAY ==
--- NOTE | ~2023-11-01 | MR_ITS ---
EXAMINATION: MR HAND WITHOUT AND WITH CONTRAST, RIGHT CLINICAL INFORMATION: Palmar cyst. Pain. Epidermal cyst. COMPARISON: Right hand radiographs dated 08/10/2023. TECHNIQUE: Multisequence MR imaging of the right hand was obtained before and after the IV administration of 9 mL Gadavist contrast on a high-field strength scanner. FINDINGS: BONE: No acute fracture or dislocation. No marrow edema or postcontrast enhancement. No concerning lytic or blastic osseous lesion. 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 MUSCLES/TENDONS: Trace fluid within the flexor digitorum tendon sheath extending proximally into the carpal tunnel with associated postcontrast enhancement, consistent with tenosynovitis. No transverse tendon tear or tendon retraction. LIGAMENTS: Intact collateral ligaments. SOFT TISSUES: There is fluid and edema within the flexor digitorum fascial planes as described above with extension to the palmar surface of the hand and along the radial aspect of the interspace between the first and second metacarpals. No discrete, organized fluid collection. Findings could represent sequela of tenosynovitis versus a ruptured cyst. No discrete soft tissue mass. MR/MR hand RT wo/w con IMPRESSION: 1. Fluid and edema within the flexor digitorum fascial planes extending proximally into the carpal tunnel with associated postcontrast enhancement. Findings could represent sequela of tenosynovitis versus a ruptured cyst. No discrete, organized fluid collection or soft tissue mass. 2. No acute osseous abnormality. 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
[2023-11-01] MEDS: gadobutroL 10 ML VIAL IVPUSH (17:04)
== END 2023-11-01 16:06 | disposition home or self-care (01) ==
LOC: HO.MRI 16:05
PROVIDERS: PCP Nurse Practitioner Primary Care; Visit Provider Physician Assistant
DX: L72.0 Epidermal cyst (principal)
CPT/HCPCS: 73220; A9585

== ENCOUNTER 2023-12-13 10:09 | Outpatient (REF) | payer OTHER, SELFPAY ==
[2023-12-13 12:20] LABS: Estimated Average Glucose 114 mg/dL; Hemoglobin A1c % 5.6 % (<6.0)
[2023-12-13 13:40] LABS: Folate 6.1 ng/mL (> or = 4.0); Vitamin B12 744 pg/mL (200-900)
[2023-12-13 14:02] LABS: CT PCR NOT DETECTED (Not Detect.); NG PCR NOT DETECTED (Not Detect.)
[2023-12-14 03:55] LABS: HIV AB/AG Nonreactive (Nonreactive); HIV Num 1 0.05 S/CO (0.00-0.99); ~HepC Num1 0.08 S/CO (0.00-0.79); ~Hepatitis C Antibody Nonreactive (Nonreactive)
[2023-12-15 07:03] LABS: RPR Rapid Plasma Reagin NON-REACTIVE (NON-REACTIVE)
== END 2023-12-13 10:10 | disposition home or self-care (01) ==
LOC: HO.HHCL 10:09
PROVIDERS: Visit Provider Nurse Practitioner Primary Care
DX: E78.00 Pure hypercholesterolemia, unspecified (principal); D75.89 Other specified diseases of blood and blood-forming organs; Z20.2 Contact with and (suspected) exposure to infections with a predominantly sexual mode of transmission; Z83.3 Family history of diabetes mellitus
CPT/HCPCS: 0353U; 36415; 82607; 82746; 83036; 86592; 86803; 87389

== ENCOUNTER 2023-12-20 08:56 | Outpatient (AMB) | payer OTHER, SELFPAY ==
--- NOTE | 2023-12-20 08:57 | A.OFFVIS_ITS ---
Intake Visit Reasons: OV-MRI RT hand review and poss surgery Intake Note: Silvana 58 yr old female presents today for his MRI review for his right hand and discuss possible surgery. Patient last seen with Meghna Holloway. Pt states his hand is very painful. Pt states he gets numbness and tingling in his hand and fingers. Allergies seasonal/environmental Allergy (Intermediate, Uncoded 12/20/23 09:00) Eye Swelling HPI HPI OV-MRI RT hand review and poss surgery: Details: Silvana is a 58 year old right hand dominant man who presents for an MRI review of his right hand mass. He complains of a mass in his right palm for ~1 year now. He says this causes him pain when he is grabbing objects or making a fist. He says this mass has decreased in size since he was last seen but he has other painful masses at the base of his middle & ring fingers. He says he has pain in his fingers as well when trying to make a fist or use his hand. His pain is worst in the middle finger. He says he feels tightness in his middle finger, particularly in the mornings. He also complains of numbness in his thumb, index, and middle fingers. Symptoms intermittent, but daily, worse at night. He has not had a NCS done. He smokes Cigarettes & Marijuana, he has a Hx of cocaine use. He denies any recent injury. [facility] Medical History History of adenomatous polyp of colon Tubular adenoma of colon Hx of substance abuse Alcohol abuse Gout Back pain GERD (gastroesophageal reflux disease) Anxiety Depression High cholesterol HTN (hypertension) Colon cancer screening BPH (benign prostatic hyperplasia) Surgical History Hx of colonoscopy Family History Mother History of brain cancer Social History Alcohol intake: current Alcohol intake frequency: a few times a week Patient Tobacco Use Status: Current everyday Tobacco user Tobacco use type: Cigarette Cigarette Packs Per Day: 0.5 Cigarettes Per Day: 8 Years Smoked: 30 +/- Substance Use Type: Crack/Cocaine and Marijuana Review of Systems Const All systems reviewed & are unremarkable except as noted in HPI and below Physical Exam Const General: cooperative, healthy appearing and no acute distress Orientation/consciousness: patient oriented x3 HEENT Head: Yes normocephalic and Yes atraumatic Eyes EOM: EOMs intact bilaterally Resp Effort & Inspection: normal respiratory effort and able to speak in complete sentences Cardio Jugular venous distension: no JVD Skin General skin exam: turgor normal Rashes: no rashes Neuro General: patient oriented x3 Extrem Other: Evaluation of Right Upper Extremity: The patient is alert, oriented, and in no acute distress Neuro: Median, Ulnar, Radial nerves motor and sensory intact and sensation is normal to the tips of all digits today in clinic No thenar or intrinsic wasting Good APB muscle belly firing and good finger cross Vascular: Cap refill brisk ROM: He can make a fist and extend all his digits tightness over dorsum of middle finger when making a fist, but he could make a tight fist today in clinic No locking or catching Skin: No lacerations or abrasions. General: No Ecchymosis. No Erythema or evidence of infection. There are Dupuytrens nodules at the mid-palmar crease in line with the middle & ring fingers. No evidence of cord or contractures. No palpable cyst over the index finger a1 gifty today, however he says this is where the mass had been. I suspect this has ruptured and is no longer present, with no locking or catching of the index finger Radiographs: 3 views of the right hand from 08/10/23 were reviewed by me today in clinic. They show no fractures, dislocations, or arthritic changes. Right hand MRI: FINDINGS: BONE: No acute fracture or dislocation. No marrow edema or postcontrast enhancement. No concerning lytic or blastic osseous lesion. 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 MUSCLES/TENDONS: Trace fluid within the flexor digitorum tendon sheath extending proximally into the carpal tunnel with associated postcontrast enhancement, consistent with tenosynovitis. No transverse tendon tear or tendon retraction. LIGAMENTS: Intact collateral ligaments. SOFT TISSUES: There is fluid and edema within the flexor digitorum fascial planes as described above with extension to the palmar surface of the hand and along the radial aspect of the interspace between the first and second metacarpals. No discrete, organized fluid collection. Findings could represent sequela of tenosynovitis versus a ruptured cyst. No discrete soft tissue mass. IMPRESSION: 1. Fluid and edema within the flexor digitorum fascial planes extending proximally into the carpal tunnel with associated postcontrast enhancement. Findings could represent sequela of tenosynovitis versus a ruptured cyst. No discrete, organized fluid collection or soft tissue mass. 2. No acute osseous abnormality. 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 John Bates MD 11/04/23 Psych Appearance: grossly normal Affect: normal affect Attitude: cooperative Assessment & Plan Assessment & Plan (1) Numbness and tingling in right hand: Code(s): R20.0 - Anesthesia of skin; R20.2 - Paresthesia of skin Category: Medical (2) Dupuytren's disease of palm of right hand: Code(s): M72.0 - Palmar fascial fibromatosis [Dupuytren] Category: Medical (3) Volar retinacular ganglion: Code(s): M67.40 - Ganglion, unspecified site Category: Medical Plan Assessment & Plan: 1. Right hand numbness In the median nerve distribution Symptoms intermittent, but daily, worse at night I educated him about carpal tunnel syndrome I ordered a NCS to assess for peripheral nerve compression Follow-up after his nerve conduction study. 2. Right Dupuytrens disease Two nodules in the mid-palmar crease, in line with the middle & ring fingers No evidence of cords or contractures I educated him about this condition I directed him to the [email or web address] website for more information No operative intervention indicated at this time 3. Right hand possible retinacular cyst Noted by Salome to be over the index finger a1 gifty Hx and MRI most consistent with ruptured retinacular cyst No recurrence Fluid collection seen on MRI, no mass seen today in clinic Scribed for Allie Solis MD by Henry Barr medical billing and coding specialist, on 12/20/23 at 9:15 AM, EST. Orders: Orders NE electromyogram (EMG) Today R20.0 - Anesthesia of skin, R20.2 - Paresthesia of skin NE nerve conduction velocity Today R20.0 - Anesthesia of skin, R20.2 - Paresthesia of skin Coding Level of Care Code Est Pt Level 4 (16778) Diagnoses Numbness and tingling in right hand R20.0; R20.2 Dupuytren's disease of palm of right hand M72.0 Volar retinacular ganglion M67.40
== END 2023-12-20 09:26 | disposition home or self-care (01) ==
PROVIDERS: PCP Nurse Practitioner Primary Care; Visit Provider Orthopaedic Surgery
DX: R20.0 Anesthesia of skin (principal); R20.2 Paresthesia of skin; M72.0 Palmar fascial fibromatosis [Dupuytren]; M67.40 Ganglion, unspecified site
CPT/HCPCS: 99214

== ENCOUNTER → 2023-12-20 08:56 | Outpatient (BNVA) | payer OTHER, SELFPAY | PROVIDERS: PCP Nurse Practitioner Primary Care; Visit Provider Orthopaedic Surgery | DX: M72.0 Palmar fascial fibromatosis [Dupuytren] (principal); M67.40 Ganglion, unspecified site; R20.0 Anesthesia of skin; R20.2 Paresthesia of skin | CPT/HCPCS: 99212 ==

== ENCOUNTER 2024-01-04 12:48 | Outpatient (REF) | payer OTHER, SELFPAY ==
--- NOTE | 2024-01-04 12:51 | EMG_ITS ---
Chief complaint: Right hand numbness Reason for referral: Evaluate for Carpal Tunnel Syndrome Referred by: Jeffery SALMON Procedure done: Right upper extremity NCS/EMG Precautions and/or limitations: None The limb temperature was monitored continuously and remained between 32-36 degrees C during the performance of the NCS. Nerve Conduction Studies Anti Sensory Summary Table ?Stim Site NR Onset (ms) Norm Onset (ms) Peak (ms) Norm Peak (ms) O-P Amp (?V) Norm O-P Amp Site1 Site2 Delta-0 (ms) Dist (cm) Dilshad (m/s) Norm Dilshad (m/s) Right Median Anti Sensory (2nd Digit) Wrist ? 3.4 4.7 <3.6 6.1 >10 Wrist 2nd Digit 3.4 14.0 41 Right Radial Anti Sensory (Thumb) Forearm ? 1.6 2.0 <3.1 13.6 Forearm Thumb 1.6 0.0 Right Ulnar Anti Sensory (5th Digit) Wrist ? 2.2 2.8 <3.7 16.2 >15.0 Wrist 5th Digit 2.2 14.0 64 Motor Summary Table ?Stim Site NR Onset (ms) Norm Onset (ms) O-P Amp (mV) Norm O-P Amp iAmp (mV) Amp (1st) (%) Site1 Site2 Delta-0 (ms) Dist (cm) Dilshad (m/s) Norm Dilshad (m/s) Right Median Motor (Abd Poll Brev) Wrist ? 4.5 <3.9 8.6 >4.5 10.0 100.0 Elbow Wrist 4.3 24.0 56 >45 Elbow ? 8.8 7.3 8.8 84.9 Right Ulnar Motor (Abd Dig Minimi) Wrist ? 2.8 <3.0 6.1 >5 8.2 100.0 B Elbow Wrist 4.1 22.0 54 >45 B Elbow ? 6.9 6.4 8.7 104.9 A Elbow B Elbow 1.5 10.0 67 >45 A Elbow ? 8.4 6.2 8.6 101.6 EMG ?Side Muscle Nerve Root Ins Act Fibs Psw Amp Dur Poly Recrt Int Pat Comment Right 1stDorInt Ulnar C8-T1 Nml Nml Nml Nml Nml 0 Nml Complete Right FlexCarRad Median C6-7 Nml Nml Nml Nml Nml 0 Nml Complete Right Biceps Musculocut C5-6 Nml Nml Nml Incr Incr 0 Nml Complete Right Triceps Radial C6-7-8 Nml Nml Nml Nml Nml 0 Nml Complete Right Deltoid Axillary C5-6 Incr 2+ 2+ Incr Incr 0 Nml Complete CRDs Paraspinal EMG ?Side Muscle Nerve Root Ins Act Fibs Psw Comment Right Cervical Upper Rami Nml Nml Nml Right Cervical Mid Rami Nml Nml Nml Right Cervical Lower Rami Nml Nml Nml FINDINGS: Right median motor nerve showed prolonged distal latency, normal amplitude and normal conduction velocity. Right median sensory showed prolonged peak latency and small latencies. All other nerves tested were within normal. Concentric needle EMG was performed in selected muscles of the right upper extremity and cervical paraspinals. Study revealed signs of electric abnormalities as shown in the table above. Right deltoid showed increased insertional activity, PSWs and fibrillations, increased amplitude and duration, and CRDs. Right biceps showed increased amplitude and duration. No acute denervation seen on cervical paraspinals. IMPRESSION: 1. This is an abnormal study. 2. There is electrodiagnostic evidence for right moderate-severe median neuropathy at the wrist, consistent with carpal tunnel syndrome. 3. Chronic reinnervation changes seen on C5-6 innervated muscles suggestive of chronic C5-6 radiculopathy. 4. There is no electrodiagnostic evidence for ulnar neuropathy. CLINICAL COMMENT: On further questioning, patient said that he had right shoulder pain and weakness many years ago with atrophy of right biceps. This was treated with PT and resolved. No past medical records pertaining to this available for my review. At this time, he denies ongoing neck or shoulder pain. No atrophy seen today. Thank you for your kind referral. Karen Young MD, JAYNE Board Certified, [place] Board [employer] Physical Medicine and Rehabilitation (ABPMR) Board Certified, [place] Board of Electrodiagnostic Medicine (ABEM) [place] [id number] [facility]
== END 2024-01-04 12:49 | disposition home or self-care (01) ==
LOC: HO.NEURO 12:48
PROVIDERS: PCP Nurse Practitioner Primary Care
DX: R20.0 Anesthesia of skin (principal); R20.2 Paresthesia of skin
CPT/HCPCS: 95886; 95909

== ENCOUNTER → 2024-01-04 12:51 | Outpatient (BNV) | payer OTHER, SELFPAY | PROVIDERS: PCP Nurse Practitioner Primary Care; Visit Provider Physical Medicine & Rehabilitation | DX: G56.01 Carpal tunnel syndrome, right upper limb (principal) | CPT/HCPCS: 95886; 95909 ==

== ENCOUNTER 2024-01-30 08:36 | Outpatient (AMB) | payer OTHER, SELFPAY ==
[2024-01-30 08:41] VITALS: BMI 26.1
--- NOTE | 2024-01-30 08:41 | A.OFFVIS_ITS ---
Vital Signs 01/30/24 08:41 Height 5 ft 11 in Weight 187 lb BMI 26.1 Intake Visit Reasons: OV - right hand EMG review Intake Note: Silvana is a 58 year old male who presents today for his right hand EMG review. EMG done 01/04/24. Patient reports bumps in the center of his RT palm that bother him consistently. Allergies seasonal/environmental Allergy (Intermediate, Uncoded 01/30/24 08:41) Eye Swelling HPI HPI OV - right hand EMG review: Details: Patient is a 58-year-old male who presents to the office today for review of EMG and nerve conduction study. Patient reports that he continues to experience pain, numbness and tingling in his right hand, intermittent, but daily, worse at night. Symptoms been ongoing for approximately 1 year. The patient expresses that he would like to proceed with surgical treatment at this time. The patient reports that he had experiencing any symptoms consistent with carpal tunnel on the left side at this time. [facility] Medical History History of adenomatous polyp of colon Tubular adenoma of colon Hx of substance abuse Alcohol abuse Gout Back pain GERD (gastroesophageal reflux disease) Anxiety Depression High cholesterol HTN (hypertension) Colon cancer screening BPH (benign prostatic hyperplasia) Surgical History Hx of colonoscopy Family History Mother History of brain cancer Social History Alcohol intake: current Alcohol intake frequency: a few times a week Patient Tobacco Use Status: Current everyday Tobacco user Tobacco use type: Cigarette Cigarette Packs Per Day: 0.5 Cigarettes Per Day: 8 Years Smoked: 30 +/- Substance Use Type: Crack/Cocaine and Marijuana Physical Exam Vital Signs: BMI result Body Mass Index 26.1 Extrem Other: Patient is alert, oriented, and in no acute distress. Neuro: Median, ulnar, radial nerves motor and sensory intact and sensation is normal to the tips of all digits. Vascular: Cap refill brisk Pain: Patient reports no tenderness to palpation at this time, but reports stiffness when attempting to make an ?okay sign? ROM: Range of motion full and intact bilaterally Skin: No lacerations or abrasions. General: No ecchymosis, erythema, or evidence of infection. Psych: Appears grossly normal Affect normal Attitude cooperative Results Reviewed Results Reviewed: Nerve conduction study IMPRESSION: 1. This is an abnormal study. 2. There is electrodiagnostic evidence for right moderate-severe median neuropathy at the wrist, consistent with carpal tunnel syndrome. 3. Chronic reinnervation changes seen on C5-6 innervated muscles suggestive of chronic C5-6 radiculopathy. 4. There is no electrodiagnostic evidence for ulnar neuropathy. Assessment & Plan Assessment & Plan (1) Carpal tunnel syndrome, right: Code(s): G56.01 - Carpal tunnel syndrome, right upper limb Category: Medical Plan 1. Carpal tunnel syndrome, right Patient would like to proceed with surgical intervention at this time I educated the patient about the condition. I discussed both operative and nonoperative treatment options. The patient would like to proceed with surgery. The risks and benefits of operative treatment were discussed with the patient and the patient wishes to proceed with surgery. These risks include, but are not limited to, risk of damage to blood vessels, nerves, tendons, infection, recurrence, incomplete relief of preoperative symptoms, persistent pain, possible need for further surgery, and the risks associated with regional blocks and/or anesthesia. Plan is to take the patient to the operating room at some point in the next few weeks for the following procedures: 1. Carpal tunnel release, right, under local anesthesia All of the preoperative paperwork including the consent was discussed today. All of the patient's questions were answered in the clinic today. The patient understands that they will be in contact with our assistant professor surgical technology to discuss scheduling their procedure. Patient asks how long the recovery time will be, as he works at [employer]. patient is educated that he will not be able to lift anything heavier than a cell phone in his hand for 4 weeks, and will likely be off of work for at least 2 weeks. Patient reports that he will have light duty available to him, where he will be able to adhere to a 2 lb weight limit. Patient denies diabetes, blood thinners, asthma, heart issues, lung issues, kidney issues, Patient reports smoking, and is educated on the potential effects of smoking on wound healing postop. Patient is educated that he should attempt smoking cessation prior to surgery, the patient is amenable to attempting cessation, if not decreasing the amount of smoking that he is doing Patient will need follow-up prior to surgery Coding Level of Care Code Est Pt Level 4 (66297) Diagnoses Carpal tunnel syndrome, right G56.01
== END 2024-01-30 09:05 | disposition home or self-care (01) ==
PROVIDERS: PCP Nurse Practitioner Primary Care
DX: G56.01 Carpal tunnel syndrome, right upper limb (principal)
CPT/HCPCS: 99214

== ENCOUNTER → 2024-01-30 08:36 | Outpatient (BNVA) | payer OTHER, SELFPAY | PROVIDERS: PCP Nurse Practitioner Primary Care | DX: G56.01 Carpal tunnel syndrome, right upper limb (principal) | CPT/HCPCS: 99212 ==

== ENCOUNTER 2024-03-22 10:12 | Day surgery (SDC) | payer OTHER, SELFPAY ==
[2024-03-22 10:48] VITALS: BMI 26.1
[2024-03-22 10:52] VITALS: BP 130/93; PULSE 87; RESP 16; TEMP 36.6; O2SAT 95
--- NOTE | 2024-03-22 11:38 | MHC.SHP ---
Pre-Procedural Eval Section A - 24 Hr Update-Section A only Date of Service: 03/22/24 The patient is an INPATIENT: No Changes since office visit: No Cold of Flu in the past 2 weeks, No New Medical Problems, No Changes in Medication and No Patient answered all questions The patient has been examined within 24 hours of the surgical procedure. The History & Physical has been completed within 30 days and I have reviewed it.: Yes Section B - Complete if H&P > 30 days Chief Complaint: Carpal tunnel syndrome, right upper limb Allergies: Allergies Allergy/AdvReac Type Severity Reaction Status Date / Time seasonal/environmental Allergy Intermediate Eye Uncoded 01/30/24 08:41 Swelling Plan Diagnosis/Plan: Unchanged I have reviewed the history and physical and performed a pertinent physical examination on my patient. No changes have occurred unless specified. Time Spent With Patient Time: Total time managing care of this patient today ____ minutes.
--- NOTE | 2024-03-22 11:38 | W.PM.OPN ---
Operative Note Operative Note Date of Service: 03/22/24 Narrative: Preop diagnosis: 1. Right Carpal tunnel syndrome Postop diagnosis: same Procedure: 1. Right Carpal tunnel release Surgeon: Allie Solis MD Continuing Education Specialist: Right Anesthesia: local block using 1% lidocaine with epinephrine Findings: Thickened transverse carpal ligament. EBL: Less than 5 mL Specimens: None Complications: None Disposition: Brought to recovery room in stable condition Plan: Follow-up for 10-14 days for wound check and suture removal Indications: The patient is 58 years old, with right carpal tunnel syndrome that has been unresponsive to nonoperative management. The risks and benefits of operative treatment including but not limited to risk of damage to blood vessels, nerves, tendons, infection, persistent pain, persistent symptoms, or possible need for additional surgery were discussed with the patient and the patient wishes to proceed with surgery. Procedure: Once consent was obtained a local block was performed using a combination of 1% lidocaine with epinephrine. The patient was then brought back to the operating suite and placed on the operative table in supine position. The right upper extremity was prepped and draped in a standard surgical fashion. Once assured that we had a good block, a 2.0 cm longitudinal incision was made centered over the carpal tunnel. The incision was made through the skin to the subcutaneous tissues using a #15 blade. Dissection was made down to the level of the transverse carpal ligament with care being taken to protect the palmar cutaneous nerve. Once the transverse carpal ligament was clearly visualized, a longitudinal incision was made in the transverse carpal ligament 1st using a #15 blade, then using tenotomy scissors under direct visualization. Care was taken to look for and protect the motor branch of the median nerve when seen in this area. Once satisfied with our carpal tunnel release the wound was copiously irrigated with normal saline and hemostasis was obtained with a brief period of local pressure. The skin edges were reapproximated with some 5.0 nylon suture material and a sterile dressing was applied. The patient appears to have tolerated the procedure well and with no complications. All digits were well vascularized at the conclusion of the case.
[2024-03-22 13:12] VITALS: BP 147/96; PULSE 69; RESP 15; O2SAT 95
== END 2024-03-22 13:00 | disposition home or self-care (01) ==
PROVIDERS: PCP Nurse Practitioner Primary Care; Visit Provider Orthopaedic Surgery
PROC: (CPT 64721; principal; 2024-03-22 11:10)
DX: G56.01 Carpal tunnel syndrome, right upper limb (principal); J30.2 Other seasonal allergic rhinitis; F17.210 Nicotine dependence, cigarettes, uncomplicated; R20.0 Anesthesia of skin; R20.2 Paresthesia of skin; M10.9 Gout, unspecified; I10 Essential (primary) hypertension; E78.00 Pure hypercholesterolemia, unspecified; F10.10 Alcohol abuse, uncomplicated; F19.11 Other psychoactive substance abuse, in remission; F41.9 Anxiety disorder, unspecified; F32.A Depression, unspecified
CPT/HCPCS: 64721; J0171

== ENCOUNTER → 2024-03-22 10:12 | Outpatient (BNV) | payer OTHER, SELFPAY | PROVIDERS: PCP Nurse Practitioner Primary Care; Visit Provider Orthopaedic Surgery | DX: G56.01 Carpal tunnel syndrome, right upper limb (principal) | CPT/HCPCS: 64721 ==

== ENCOUNTER → 2024-03-27 12:57 | Outpatient (REF) | payer OTHER, SELFPAY ==
--- NOTE | 2024-03-27 12:59 | CA_ITS ---
Transthoracic Echocardiogram Patient (Last, First, Middle): Silvana Guerra, Gender: Male Date of : 1965 Age: 58 Procedure Date: 03/27/2024 Procedure Type: Transthoracic Echocardiogram Location: OP Height: 180.34 cm Weight: 84.82 kg BSA: 2.05 m2 Heart Rate: bpm BP: 124 / 86 mmHg [place]man: SIMI Referring MD: Dariana Muse AERONAUTICAL TEST ENGINEER-Isaiah Crown Perforator Operator: Johan Carey MD Symptoms: I42.9 - Cardiomyopathy, unspecified Study Quality: Adequate ECG Rhythm: Sinus Conclusions: - 1. Low normal LV ejection fraction with LVEF of 50-55% 2. Normal cardiac valvular dopplers 3. Upper limits of normal ascending aortic size. 4. No gross pericardial effusion. Findings Left Ventricle Normal left ventricular cavity size. There is normal left ventricular wall thickness. The left ventricular systolic function is low normal. The visually estimated ejection fraction is between 50-55%. Spectral Doppler is indicative of an impaired relaxation filling pattern. E/E prime ratio is between 8 and 15 consistent with indeterminate filling pressures. Peak GLS is -13.4%, moderately reduced. Right Ventricle Normal right ventricular cavity size and systolic function. Atria Both atria are normal in size. There is no evidence of interatrial shunt. Aortic Valve Normal aortic valve structure and function. There is no aortic valve stenosis. There is no aortic valve regurgitation. Mitral Valve Normal mitral valve structure and function. There is trace mitral valve regurgitation. There is no mitral valve stenosis. Pulmonic Valve The pulmonic valve is likely normal. Tricuspid Valve Normal tricuspid valve structure. Tricuspid regurgitation envelope is inadequate for calculation of right ventricular systolic pressure. Normal right atrial pressure. Great Vessels All visible segments of the aorta are normal in size. The pulmonary artery was not well visualized. There is no dilatation of the ascending aorta measuring 3.60 cm. Venous The inferior vena cava is normal in size and collapses greater than 50% with inspiration. Pericardium/Pleural There is no evidence of pericardial effusion. Measurements 2D Linear Measurements IVSd: 1.08 0.6-0.9/0.6-1.0 cm LVIDd: 5.09 3.9-5.3/4.2-5.9 cm LVIDd Index: 2.48 2.4-3.2/2.2-3.1 cm/m2 LVIDs: 3.76 2.0-3.6 cm LVPWd: 0.98 0.7-1.1 cm LA Diam: 3.80 2.7-3.8/3.0-4.0 cm LAIDs Index: 1.85 1.5-2.3 cm/m2 LV Mass: 242.36 67-162/88-224 g LV Mass Index: 118.23 43-95/49-115 g/m2 LVOT Diam: 2.10 3.0+(-)1.3 cm 2D Systolic Function EF 4C: 52.90 >55% EF 2C: 51.00 >55% EF BiP: 51.10 >55% Mitral Valve MV Pk E: 0.41 MV PK A: 0.72 MV Decel Time: 253.00 E/A: 0.60 E'Lateral: 6.20 E'Medial: 3.81 E/E' Med: 10.70 E/E' Lat: 6.60 PHT: 74.00 MVA PHT: 2.97 Decel [place]: 1.61 Aortic Valve AoV Pk Dilshad: 1.00 AoV Mn Dilshad: 0.69 AoV VTI: 0.20 AoV Pk Grad: 4.00 Aov Mn Grad: 2.00 TYLER Cont.VTI: 2.69 LVOT LVOT Pk Dilshad: 0.84 LVOT Mn Dilshad: 0.55 LVOT VTI: 0.15 LVOT Pk Grad: 3.00 LVOT Mn Grad: 1.00 LVOT Diam: 2.10 LVOT Area: 3.46 Diastolic Function MV Pk E: 0.41 MV Pk A: 0.72 E/A: 0.60 E'Medial: 3.81 E/E' Med: 10.70 E' Laterial: 6.20 E/E' Lat: 6.60 Right Ventricle TAPSE (mm): 23.20 TVS' Dilshad: 14.30 Tricuspid Valve RA Press: 3.00 Great Vessels Aorta Sinus of Valsalva: 3.65 2.0-3.[address] [place]: 2.70 1.7-3.4 cm Ao Asc: 3.60 2.1-3.4 cm Updated in Other Vendor System with Status of Final Johan Carey MD electronically signed on 03/28/2024 1:48:24 PM with status of Final
== END ==
LOC: HO.CARD 12:57
PROVIDERS: PCP Nurse Practitioner Primary Care; Visit Provider Nurse Practitioner Family
DX: I42.9 Cardiomyopathy, unspecified (principal); I10 Essential (primary) hypertension
CPT/HCPCS: 93306; 93356

== ENCOUNTER → 2024-03-27 12:59 | Outpatient (BNV) | payer OTHER, SELFPAY | PROVIDERS: PCP Nurse Practitioner Primary Care; Visit Provider Internal Medicine Cardiovascular Disease | DX: I51.89 Other ill-defined heart diseases (principal); R93.1 Abnormal findings on diagnostic imaging of heart and coronary circulation | CPT/HCPCS: 93306; 93356 ==

== ENCOUNTER 2024-04-04 13:19 | Outpatient (AMB) | payer OTHER, SELFPAY ==
--- NOTE | 2024-04-04 13:20 | MHC.OFFVIS ---
Intake Visit Reasons: PO RT CTR 03/22/24 AR Intake Note: Silvana is a 58 year old right hand dominant male who presents today post operatively s/p Right Carpal Tunnel Release DOS: 03/22/24 w/ Dr Solis. Patient reports his hand feels okay. He expresses numbness and tingling in his right wrist that is still present that radiates up his right arm into elbow. Sutures removed and steri srips applied. Patient wants to discuss work status and needs work note w/ any restrictions. Allergies seasonal/environmental Allergy (Intermediate, Uncoded 04/04/24 13:32) Eye Swelling HPI HPI PO RT CTR 03/22/24 AR: Details: Patient is a 58-year-old male who presents for postoperative evaluation status post right carpal tunnel release, DOS 03/22/2024. Today, the patient reports that he is feeling very well, and has no acute complaints or concerns at this time. Patient reports that he is still experiencing some intermittent, minor numbness and tingling in the ring and middle fingers of the right hand, but states that this has improved significantly since DOS. She reports no pain or discomfort. Patient denies any pain or discharge from the incision site. No other acute complaints or concerns at this time. [facility] Medical History History of adenomatous polyp of colon Tubular adenoma of colon Hx of substance abuse Alcohol abuse Gout Back pain GERD (gastroesophageal reflux disease) Anxiety Depression High cholesterol HTN (hypertension) Colon cancer screening BPH (benign prostatic hyperplasia) Surgical History Hx of colonoscopy Family History Mother History of brain cancer Social History (Updated 04/04/24 @ 13:33 by JUAN PABLO Yee) Alcohol intake: current Alcohol intake frequency: a few times a week Patient Tobacco Use Status: Current everyday Tobacco user Tobacco use type: Cigarette Cigarette Packs Per Day: 0.5 Cigarettes Per Day: 8 Years Smoked: 30 +/- Substance Use Type: Crack/Cocaine and Marijuana Current occupational status: employed Current occupation: [employer] / Right handed Review of Systems Const All systems reviewed & are unremarkable except as noted in HPI and below Physical Exam Extrem Other: Neuro: Normal sensation of the tips of all digits of the right hand at this time No thenar or intrinsic wasting. Good APB muscle firing and good finger cross. Vascular: Capillary refill brisk. ROM: Patient can make a fist and extend all their digits. Skin: Well-approximated, well-healing incision site noted on the volar aspect of the right wrist No evidence of infection General: No ecchymosis. No erythema or evidence of infection. Assessment & Plan Assessment & Plan (1) Carpal tunnel syndrome, right: Code(s): G56.01 - Carpal tunnel syndrome, right upper limb Category: Medical Plan 1. Carpal tunnel syndrome, right Status post carpal tunnel release DOS 03/22/2024 Patient appears to be recovering well postoperatively Patient is educated about the typical recovery course Patient is educated that it can take weeks to even months for the nerve to recover fully, and even though he did not have dense numbness prior to surgery, there is always the risk that he will not get totally normal sensation back in the right hand Patient understands this, in his amenable to it Patient is also informed that he will not require any occupational therapy, as his range of motion in his right hand is quite good Patient will follow-up as needed with any acute concerns Coding Level of Care Code Global (70317) Diagnoses Carpal tunnel syndrome, right G56.01
== END 2024-04-04 13:49 | disposition home or self-care (01) ==
PROVIDERS: PCP Nurse Practitioner Primary Care
DX: G56.01 Carpal tunnel syndrome, right upper limb (principal)
CPT/HCPCS: 99024

== ENCOUNTER → 2024-04-04 13:19 | Outpatient (BNVA) | payer OTHER, SELFPAY | PROVIDERS: PCP Nurse Practitioner Primary Care | DX: Z47.89 Encounter for other orthopedic aftercare (principal); Z98.890 Other specified postprocedural states | CPT/HCPCS: 99212 ==

== ENCOUNTER 2024-06-01 16:02 | Outpatient (REF) | payer OTHER, SELFPAY ==
--- NOTE | ~2024-06-01 | XR_ITS ---
EXAMINATION: XR CHEST CLINICAL INFORMATION: SOB, crackles COMPARISON: None available. TECHNIQUE: 2 views of the chest were obtained. FINDINGS: No significant abnormality is noted involving the heart, lungs, mediastinum, bony thorax or soft tissues. XR/XR chest 2V IMPRESSION: No acute disease Electronically signed by: Marlon Burton MD 06/03/2024 10:09 AM [facility] [place]
== END 2024-06-01 16:03 | disposition home or self-care (01) ==
LOC: HO.HHCX 16:02
PROVIDERS: Visit Provider Nurse Practitioner Primary Care
DX: R06.02 Shortness of breath (principal)
CPT/HCPCS: 71046

== ENCOUNTER 2024-08-08 15:08 | Outpatient (AMB) | payer OTHER, SELFPAY ==
[2024-08-08 15:21] VITALS: BP 130/80; PULSE 76; BMI 26.7
--- NOTE | 2024-08-08 15:21 | A.OFFVIS_ITS ---
Vital Signs 08/08/24 15:21 Height 5 ft 11 in Weight 191 lb 12.835 oz BMI 26.7 BP 130/80 Blood Pressure Location Lt brachial Position Sitting Pulse 76 Intake Visit Reasons: r/s 06/22/24 1 yr followup w/ekg Director Of Physician Practices Required: No Accompanied by: Self / Same As Patient Allergies seasonal/environmental Allergy (Intermediate, Uncoded 04/04/24 13:32) Eye Swelling Medication List - Last Reconciled 08/08/24 by Tobias Sexton MD allopurinol 600 mg PO DAILY atorvastatin 10 mg PO DAILY clonidine HCl 0.1 mg PO BID divalproex 1,000 mg PO BID hydroxyzine pamoate 50 mg PO TID ibuprofen 600 mg PO QID PRN lisinopril 20 mg PO DAILY loratadine 10 mg PO DAILY PRN olanzapine 20 mg PO BEDTIME omeprazole 20 mg PO DAILY quetiapine 200 mg PO BEDTIME quetiapine mg PO HPI Comments Details: Silvana returns for follow-up. In the past, he was seen regarding chest tightness. No known coronary disease myocardial infarction or cardiomyopathy. Smoker and he is also using cocaine. States that he is still doing it. Hype rtensive on medications. No new concerns. He states he has not had any new cardiac symptoms in the last few months. [facility] Medical History History of adenomatous polyp of colon Tubular adenoma of colon Hx of substance abuse Alcohol abuse Gout Back pain GERD (gastroesophageal reflux disease) Anxiety Depression High cholesterol HTN (hypertension) Colon cancer screening BPH (benign prostatic hyperplasia) Surgical History Hx of colonoscopy Family History Mother History of brain cancer Social History Alcohol intake: current Alcohol intake frequency: a few times a week Patient Tobacco Use Status: Current everyday Tobacco user Tobacco use type: Cigarette Cigarette Packs Per Day: 0.5 Cigarettes Per Day: 8 Years Smoked: 30 +/- Substance Use Type: Crack/Cocaine and Marijuana Current occupational status: employed Current occupation: [employer] / Right handed Review of Systems Const Denies chills, Denies fatigue, Denies fever(s), Denies weight gain and Denies weight loss ENT Denies dizziness Card Denies chest pain, Denies leg edema, Denies lightheadedness, Denies palpitations, Denies dyspnea on exertion, Denies orthopnea and Denies other Resp Denies cough and Denies dyspnea on exertion GI Denies hematochezia and Denies change in stool character Musc Denies abnormal gait, Denies muscle weakness, Denies numbness, Denies radiating pain into limb and Denies tingling Neuro Denies abnormal gait, Denies dizziness, Denies numbness and Denies tingling Endo Denies fatigue and Denies palpitations Physical Exam Vital Signs: Last Vital Signs Pulse 76 08/08/24 15:21 BP 130/80 08/08/24 15:21 BMI result Body Mass Index 26.7 Const General: comfortable and no acute distress Orientation/consciousness: patient oriented x3 HEENT Other: Unremarkable Head: Yes normal to inspection Neck Neck: Yes normal visual inspection Chest Chest palpation & inspection: normal inspection of the chest Resp Auscultation: clear to auscultation bilaterally Cardio Palpation: normal PMI Heart sounds: S1 normal heart sound present, S2 normal heart sound present, no gallops, no murmurs and no rubs GI Palpation (GI): Soft to palpation Back/Spine/Pelvis Other: unremarkable Skin General skin exam: no rashes or lesions noted Neuro General: patient oriented x3 Extrem General: Yes normal to inspection Psych Mental Status: mental status grossly normal Office Procedures EKG Details: EKG with underlying sinus rhythm at 76/Min; nonspecific ST-T changes; [place]. [id number], Complete Assessment & Plan Assessment & Plan (1) Precordial chest pain: Code(s): R07.2 - Precordial pain Category: Medical (2) Cocaine abuse: Code(s): F14.10 - Cocaine abuse, uncomplicated Category: Medical (3) HTN (hypertension): Code(s): I10 - Essential (primary) hypertension Category: Medical Qualifiers: Hypertension type: primary hypertension Qualified Code(s): I10 - Essential (primary) hypertension (4) High cholesterol: Code(s): E78.00 - Pure hypercholesterolemia, unspecified Category: Medical Plan Cardiac studies reviewed. Baseline EKGs unremarkable. Echocardiogram with LVEF of 50-55%. No significant valvular findings and otherwise unremarkable. Exercise stress echocardiogram was negative at 9.1 METS. He reached 79% of target heart rate. Coronary CTA shows mild coronary calcification but no significant stenosis. Smoker, substance abuse, hypertension, dyslipidemia, mild coronary disease on coronary CTA, low normal LVEF. Overall, main recommendation is to still changes lifestyle and stopped smoking and stop using cocaine. Optimal management of blood pressure and cholesterol. Total time spent including review of data, counseling, documentation, coordination of care-31 minutes. Coding Level of Care Code Est Pt Level 4 (92281) Diagnoses Precordial chest pain R07.2 Cocaine abuse F14.10 Primary hypertension I10 Hypertension type: primary hypertension High cholesterol E78.00 CPT Codes EKG - CPT: 82815-[id number], Complete ([id number])
--- OUTSIDE RECORDS SUMMARY | 2024-08-08 17:10 | XMS_ITS | Encounter Summary ---
Author Organization [employer] Address [address] [place] [address] [address] [place] [address] Care Team Providers Care Signal Engineer Name Role Phone Christina Adamson Primary Care Provider [phone] Encounter Details Date Type Department Care Team (Latest Contact Info) Description 05/21/2021 Abstract [facility] Dental, Provider, DDS Social History Tobacco Use Types Packs/Day Years Used Date Smoking Tobacco: Never Assessed Sex and Gender Information Value Date Recorded Sex Assigned at Male 05/10/2022 10:15 AM EDT Legal Sex Male 10:15 AM EDT Gender Identity Male 05/10/2022 10:15 AM EDT Sexual Orientation Straight 05/10/2022 10 :15 AM EDT documented as of this encounter Plan of Treatment Upcoming Encounters Date Type Department Care Team (Late st Contact Info) Description 09/12/2024 3:15 PM EST Office Visit [facility] [address] [place] [address] Christina Adamson ANP [address] [place] [address] documented as of this encounter Visit Diagnoses Not on filedocumented in this encounter Care Teams Signal Engineer Relationship Specialty Start Date End Date Christina Adamson ANP [address] [place] [address] PCP - General Family Medicine 03/10/20 documented as of this encounter
--- OUTSIDE RECORDS SUMMARY | 2024-08-08 17:10 | XMS_ITS | Encounter Summary ---
Author Organization [employer] Address [address] [facility] 7 [place] [address] Care Team Providers Care Mandrel Puller Name Role Phone Snow Christina KEE Primary Care Provider [phone] Reason for Visit * Reason Onset Date Comments September recall 07/20/2024 Encounter Details Date Type Department Care Team ([facility] st Contact Info) Description 07/20/[address] [facility] [address] [place], [place] [phone] [facility] [place], [place] September recall Social History Tobacco Use Types Packs/Day Years Used Date Smoking Tobacco: Every Day Cigarettes Passive Smoke Exposure: Never Smokeless Tobacco: Never Alcohol Use Standard Drinks/Week Comments Yes 8 (1 standard drink = 0.6 oz pur e alcohol) 2x week Alcohol Answer Date Recorded How often do you have a drink containing alcohol ? 3 06/01/2024 How many drinks containing a lcohol do you have on a typical day when you are drinking? 0 06/01/2024 How often do you have six or more drinks on one occasion? 0 06/01/2024 Depression Answer Date Recorded Patient Health Questionnaire-9 Score 5 06/01/2024 Patient Health Questionnaire-9 Score 5 06/01/2024 Last PHQ-9: Questionnaire Data Not on file 1 08/01/2023 Housing Stability Answer Date Recorded What is your housing situation today? I have suleman mcdaniel 05/16/[address] you li ve. Do you have problems with any of the following? None of the above 05/16/2023 Food Insecurity Answer Date Recorded Within the past 12 months, y ou worried that your food would run out before you got money to buy more: Never True 05/16/2023 Within the past 12 months,th e food you bought just didn't last and you didn't have enough money to get more: Never True 12/2022 Transportation Answer Date Recorded In the past 12 months, has l ack of transportation kept you from medical appts, meetings, work or from getting things needed for daily living? No 05/16/2023 Utilities Answer Date Recorded In the past 12 months, has t he electric, gas, oil or water company threatened to shut off services in your home? No 05/16/2023 Depression Answer Date Recorded Patient Health Questionnaire-2 Score 3 06/01/2024 Sex and Gender Information Value Date Recorded Sex Assigned at Male 05/10/2022 10:15 AM EDT Legal Sex Male 10:15 AM EDT Gender Identity Male 05/10/2022 10:15 AM EDT Sexual Orientation Straight 05/10/2022 10 :15 AM EDT documented as of this encounter Miscellaneous Notes * Telephone Encounter - Arturo Zavala MA - 07/20/2024 11:51 AM EST T/C to pt to schedule a recall f/u SOB. PT agreed to come in on 09/12/24 at 3:15pm. documented in this encounter Plan of Treatment Upcoming Encounters Date Type Department Care Team (Late st Contact Info) Description 09/12/2024 3:15 PM EST Office Visit [facility] MEDICINE [address] [place] [phone] Christina Adamson ANP [address] [place] [phone] documented as of this encounter Visit Diagnoses Not on filedocumented in this encounter Additional Health Concerns Assessment Noted Time PHQ-9 Depression Total Score: 5 06/01/20 24 3:43 PM EST documented as of this encounter Care Teams Mandrel Puller Relationship Specialty Start Date End Date Christina Adamson ANP [address] [place] [phone] PCP - General Family Medicine 03/10/20 documented as of this encounter
--- OUTSIDE RECORDS SUMMARY | 2024-08-08 17:10 | XMS_ITS | Encounter Summary ---
Author Organization [employer] Address [address] [facility] [address] [place] [address] Care Team Providers Care Staff Auditor Name Role Phone Christina Adamson Primary Care Provider [phone] Encounter Details Date Type Department Care Team ([facility] st Contact Info) Description 07/10/2024 Telephone [facility] [address] [place], [place] [phone] Christina Adamson ANP [address] [place], [place] [phone] Social History Tobacco Use Types Packs/Day Years [...] encounter Miscellaneous Notes * Telephone Encounter - Jenniffer Quan - 07/10/2024 10:47 AM EST Normal lab test letter sent on 07/10/2024. documented in this encounter Plan of Treatment Upcoming Encounters Date Type Department Care Team (Late st Contact Info) Description 09/12/2024 3:15 PM EST Office Visit [facility] [address] [place] [phone] Christina Adamson ANP [address] [place] [address] documented as of this encounter Visit Diagnoses Not on filedocumented in this encounter Additional Health Concerns Assessment Noted Time PHQ-9 Depression Total Score: 5 06/01/20 24 3:43 PM EST documented as of this encounter Care Teams Staff Auditor Relationship Specialty Start Date End Date Christina Adamson ANP [address] [place] [phone] PCP - General Family Medicine 03/10/20 documented as of this encounter
--- OUTSIDE RECORDS SUMMARY | 2024-08-08 17:10 | XMS_ITS | Encounter Summary ---
Author Organization [employer] Address [address] [place] [address] Care Team Providers Care Computer Technology Instructor Name Role Phone Jane Brewer Primary Care Provider [phone] Reason for Visit * Reason Comments Annual Exam Encounter Details Date Type Department Care Team ([facility] st Contact Info) Description 06/01/2024 2:30 PM EST Office Visit [facility] [address], [place] [id number] Jane Brewer ANP [address] [place] [address] Encounter for immunization (Primary Dx); Prostate cancer screening; Mixed anxiety and depressive disorder; Benign prostatic hyperplasia with urinary frequency; Shortness of breath; Primary hypertension; Screening for malignant neoplasm of colon; Screening for lung cancer Social History Tobacco Use Types Packs/Day Years [...] AM EDT documented as of this encounter Last Filed Vital Signs Vital Sign Reading Time Taken Comments Blood Pressure 142/105 06/01/2024 2:54 PM EST Pulse 70 06/01/2024 2:54 PM EST Temperature 36.7 ??C (98 ??F) 06/01/2024 2:54 PM EST Respiratory Rate - - Oxygen Saturation 97% 06/01/2024 2:54 PM EST Inhaled Oxygen Concentration - - Weight 86 kg (189 lb 9.6 oz) 06/01/2024 2:54 PM EST Height - - Body Mass Index 26.44 12/13/2023 9:18 AM EDT documented in this encounter Progress Notes * VIDHYA Wong - 06/01/2024 2:30 PM EST SUBJECTIVE: Silvana Guerra is a 59 y.o. year old male who presents for routine physical exam. Denies recent illness, injury, or hospitalization. PMH has a past medical history of Anxiety, Depression, High cholesterol, Hypertension, and Periodontal disease. Acute Concerns: Polyuria - urinating 3-4 times over short period of time. He would like to re- start tamsulosin. Would not like to see urology again. HTN: reports home BP is ok but doesn't check often. He was unable to complete PT for his back b/c of family emergency [facility]. S/p Right Carpal tunnel release 03/22/24 and healed well. LDCT due: smokes 1/2 PPD, started at 22yo and smoked 2 PPD for at least 10 years when he was drinking. 13.5 + 20 = 33.5 PYH CRC screening: Colonoscopy March [address] Kemp repeat 3 to 5 years On disability for mental health and herniated disc. Lab Results Component Value Date HGBA1C 5.6 12/13/2023 Social History Social History Narrative Not on file Patient Active Problem List Diagnosis Sialadenitis Gout Hypercholesterolemia Hypertension Mixed anxiety and depressive disorder Tobacco dependence syndrome Retinal hemorrhage Genital herpes simplex Erectile dysfunction Alcohol abuse Backache Cocaine use disorder (CMS/HCC) Past Surgical History: Procedure Laterality Date ROOT CANAL WISDOM TOOTH EXTRACTION No family history on file. Review of Systems Constitutional: Negative for chills and fever. HENT: Negative for sore throat. Respiratory: Negative for cough and shortness of breath. Cardiovascular: Negative for chest pain. Gastrointestinal: Negative for constipation and diarrhea. Endocrine: Negative for polydipsia, polyphagia and polyuria. Genitourinary: Negative for dysuria. OBJECTIVE: Vitals: 06/01/24 1454 BP: (!) 142/105 BP Location: Right arm Patient Position: Sitting BP Cuff Size: Adult Pulse: 70 Temp: 98 ??F (36.7 ??C) TempSrc: Temporal SpO2: 97% Weight: 189 lb 9.6 oz (86 kg) Physical Exam Constitutional: General: He is not in acute distress. Appearance: Normal appearance. He is not ill-appearing. HENT: Head: Normocephalic and atraumatic. Nose: No congestion. Mouth/Throat: Pharynx: No oropharyngeal exudate or posterior oropharyngeal erythema. Eyes: General: No scleral icterus. Extraocular Movements: Extraocular movements intact. Pupils: Pupils are equal, round, and reactive to light. Cardiovascular: Rate and Rhythm: Normal rate and regular rhythm. Pulmonary: Effort: Pulmonary effort is normal. No accessory muscle usage or respiratory distress. Comments: Mildly decreased breath sounds Abdominal: General: Bowel sounds are normal. Palpations: Abdomen is soft. Tenderness: There is no abdominal tenderness. Musculoskeletal: Right lower leg: No edema. Left lower leg: No edema. Neurological: Mental Status: He is alert and oriented to person, place, and time. Psychiatric: Mood and Affect: Mood normal. Behavior: Behavior normal. ASSESSMENT/PLAN Silvana was seen today for annual exam. Diagnoses and all orders for this visit: Encounter for immunization (Primary) - COVID-19 VACCINE (Ordoro) [id number] 12 yrs + - FLU VACCINE TRIVALENT (Fluarix) 6 mo + - zoster vaccine-recombinant adjuvanted (Shingrix) 50 MCG/0.5ML vaccine; Inject 0.5 mL (50 mcg) into the muscle 1 (one) time for 1 dose. Prostate cancer screening - PSA,Total; Future Mixed anxiety and depressive disorder Continue: Seroquel 50 mg a.m. and 200 mg nightly Depakote 500 mg twice daily Zyprexa 20 mg daily - Valproic Acid Total; Future Benign prostatic hyperplasia with urinary frequency - tamsulosin (Flomax) 0.4 MG 24 hr capsule; Take 1 capsule (0.4 mg) by mouth Once per day. Shortness of breath Lungs clear to auscultation but breath sounds decreased overall. Smoking cessation encouraged. Check chest x-ray and H/H. - XR Chest 2 Views; Future Primary hypertension Continue lisinopril 20 mg Blood pressure above goal, goal</= 130/80. Patient asymptomatic in so far as no headache or dizziness or vision changes. Continue to encourage low salt diet, regular exercise, home BP monitoring, compliance with medications. Call clinic if BP is frequently >150/90 Go to ED/call 911 if > 170/100 and having sx such as WILSON, visual changes, chest pain, SOB Labs ordered previously for update not yet obtained Last renal function: Lab Results Component Value Date BUN 18 12/01/2021 Lab Results Component Value Date MICROALBCREA 5 12/01/2021 Lab Results Component Value Date MICROALBCREU TNP 03/16/2023 Follow Up: 4-6weeks for lab review and shortness of breath follow-up Current Outpatient Medications on File Prior to Visit Medication Sig Dispense Refill allopurinol (Zyloprim) 300 MG tablet TAKE 2 TABLETS BY MOUTH EVERY DAY 180 tablet 3 atorvastatin (Lipitor) 10 MG tablet TAKE 1 TABLET BY MOUTH EVERYDAY AT BEDTIME 90 tablet 3 cloNIDine (Catapres) 0.1 MG tablet TAKE 1 TABLET BY MOUTH TWICE A DAY 180 tablet 3 divalproex (Depakote) 500 MG EC tablet take 2 tablet by oral route twice daily 180 tablet 0 docusate sodium (Colace) 100 MG capsule TAKE 1 CAPSULE BY MOUTH TWICE A DAY 180 capsule 3 Folate 400 MCG tablet TAKE 1 TABLET BY ORAL ROUTE EVERY DAY FOR B VITAMIN 90 tablet 3 hydrOXYzine pamoate (Vistaril) 50 MG capsule TAKE 1 CAPSULE BY MOUTH THREE TIMES A DAY NEEDED 90capsule 3 loratadine (Claritin) 10 MG tablet TAKE 1 TABLET BY MOUTH EVERY DAY NEEDED FOR ALLERGIES 90 tablet 3 Multiple Vitamins-Minerals ([employer] Spectravite Adults) tablet TAKE 1 TABLET BY MOUTH EVERY DAY WITH FOOD 90 tablet 3 OLANZapine (ZyPREXA) 20 MG tablet TAKE 1 TABLET BY MOUTH AT BEDTIME 90 tablet 0 omega-3, maximum EPA, (fish oil) 1000 MG capsule Take 1 capsule (1,000 mg) by mouth 2 times daily. 180 capsule 1 omeprazole (PriLOSEC) [address] capsule TAKE 1 CAPSULE BY MOUTH EVERY DAY BEFORE A MEAL 90 capsule 1 QUEtiapine (SEROquel) 200 MG tablet take 1 tablet by oral route every day at bedtime 90 tablet 0 QUEtiapine (SEROquel) 50 MG tablet TAKE 1 TABLET BY MOUTH EVERY DAY 90 tablet 1 Sodium Fluoride (PreviDent 5000 Booster Plus) 1.1 % paste Please use pea size to brush your teeth twice daily. Spit. Do not rinse. 112 g 2 thiamine (Vitamin B-1) 100 MG tablet TAKE 1 TABLET BY MOUTH EVERY DAY FOR B VITAMIN 90 tablet 3 valACYclovir (Valtrex) 500 MG tablet TAKE 1 TABLET BY MOUTH EVERY DAY 90 tablet 3 No current facility-administered medications on file prior to visit. Lao Translation: Patient is bilingual and declines translation services documented in this encounter Plan of Treatment Upcoming Encounters Date Type Department Care Team (Late st Contact Info) Description 09/12/2024 3:15 PM EST Office Visit [facility] [address] [place] [address] [place] [address] Jane Brewer ANP [address] [place] [address] Scheduled Orders Name Type Priority Associated Diagnoses Orde r Schedule PSA,Total Lab Routine Prostate cancer screening Expected: 06/01/2024 (Approximate), Expires: 06/01/2025 Valproic Acid Total Lab Routine Mixed anxiety and depressive disorder Expected: 06/01/2024 (Approximate), Expires: 06/01/2025 Hemoglobin and Hematocrit Lab Routine Shortness of breath Expected: 07/09/2024, Expires: 07/09/2025 documented as of this encounter Procedures Procedure Name Priority Date/Time Associated Diagnosis Comments XR CHEST 2 VIEWS Routine 06/01/2024 4:02 PM EST Shortness of breath documented in this encounter Results * XR Chest 2 Views (06/01/2024 4:02 PM EST) Anatomical Region Laterality Modality Chest Radiographic Simona ging 06/01/2024 4:02 PM EST Narrative 06/03/2024 10:12 AM EST ?[facility] ?[address] ?[place] [address] ?XRay Report ? Signed ? Patient: Mari,Osvardo ?MR#: [id number] ?? [id number] ? : 1965 ?Acct:[id number] ? Age/Sex: 58 / M ?ADM Date: 06/01/24 ? Loc: HO.HHCX ? Attending Dr: Jane Brewer [employer] ? Ordering Physician: JANE BREWER NP ?? Date of Service: 06/01/24 ?? Procedure(s): XR chest 2V ?? Accession Number(s): [id number] ? cc: JANE BREWER NP ? EXAMINATION: ?? XR CHEST ? CLINICAL INFORMATION: ?? SOB, crackles ? COMPARISON: ?? None available. ? TECHNIQUE: ?? 2 views of the chest were obtained. ? FINDINGS: ?? No significant abnormality is noted involving the heart, lungs, ?? mediastinum, bony thorax or soft tissues. ? XR/XR chest 2V ?? IMPRESSION: ?? No acute disease ? Electronically signed by: ??Marlon Burton MD ??06/03/2024 10:09 AM EST RP ? Dictated By: ?Marlon Burton MD ? Signed By: ?<Electronically signed by Marlon Burton MD in OV> ?06/03/24 1009 ? DD/ 1602 ? TD/TT: 06/01/24 1611 ? Rn Oncology: ? Procedure Note Donelle, Tania - 06/03/2024 [facility] [address] [place] [address] XRay Report Signed Patient: Sailaja Guerra#: [id number] : 1965Acct:[id number] Age/Sex: 58 / MADM Date: 06/01/24 Loc: HO.HHCX Attending Dr: Jane Brewer NP Ordering Physician: JANE BREWER NP Date of Service: 06/01/24 Procedure(s): XR chest 2V Accession Number(s): [id number] cc: JANE BREWER NP EXAMINATION: XR CHEST CLINICAL INFORMATION: SOB, crackles COMPARISON: None available. TECHNIQUE: 2 views of the chest were obtained. FINDINGS: No significant abnormality is noted involving the heart, lungs, mediastinum, bony thorax or soft tissues. XR/XR chest 2V IMPRESSION: No acute disease Electronically signed by: Marlon Burton MD 06/03/2024 10:09 AM EST RP Dictated By: Marlon Burton MD Signed By: <Electronically signed by Marlon Burton MD in OV> 06/03/24 1009 DD/ 1602 TD/TT: 06/01/24 1611 Rn Oncology: Jane Brewer ANP IMG XR PROCEDURES Final Result documented in this encounter Visit Diagnoses Diagnosis Encounter for immunization- Primary Prostate cancer screening Special screening for malignant neoplasm of prostate Mixed anxiety and depressive disorder Dysthymic disorder Benign prostatic hyperplasia with urinary frequency Shortness of breath Primary hypertension Unspecified essential hypertension Screening for malignant neoplasm of colon Screening for lung cancer documented in this encounter Additional Health Concerns Assessment Noted Time PHQ-9 Depression Total Score: 5 06/01/20 24 3:43 PM EST documented as of this encounter Care Teams Computer Technology Instructor Relationship Specialty Start Date End Date Jane Brewer ANP [address] [place] [address] PCP - General Family Medicine 03/10/20 documented as of this encounter
--- OUTSIDE RECORDS SUMMARY | 2024-08-08 17:10 | XMS_ITS | Clinical Summary ---
Author Organization [facility] ity Address [address] [place] [address] Care Team Providers Care Insurance Account Representative Name Role Phone Unavailable Primary Care Provider Unavailabl e Social History Tobacco Use Types Packs/Day Years Used Date Smoking Tobacco: Never Assessed Sex and Gender Information Value Date Recorded Sex Assigned at Not on file Gender Identity Not on file Sexual Orientation Not on file Plan of Treatment Health Maintenance Due Date Last Done Comments DTaP,Tdap,and Td Vaccines (1 - Tdap) 1985 Hepatitis B Vaccines (1 of 3 - 19+ 3-dose series) 1985 Zoster Vaccines (1 of 2) 2016 COVID-19 Vaccine (2023-2 5 season) 2024 Influenza Vaccine (#1) 2024 HIB Vaccines Aged Out No longer eligi ble based on patient's age to complete this topic HPV Vaccines Aged Out No longer eligi ble based on patient's age to complete this topic Hepatitis A Vaccines Aged Out No long er eligible based on patient's age to complete this topic IPV Vaccines Aged Out No longer eligi ble based on patient's age to complete this topic MMR Vaccines Aged Out No longer eligi ble based on patient's age to complete this topic Meningococcal ACWY Vaccine Aged Out N o longer eligible based on patient's age to complete this topic Pneumococcal Vaccine: Pediat rics (0 to 5 Years) and At-Risk Patients (6 to 64 Years) Aged Out No longer eligible b ased on patient's age to complete this topic RSV Immunization Patients Un oriana 20 months Aged Out No longer eligible b ased on patient's age to complete this topic Varicella Vaccines Aged Out No longer eligible based on patient's age to complete this topic
--- OUTSIDE RECORDS SUMMARY | 2024-08-08 17:10 | XMS_ITS | Clinical Summary ---
Author Organization [employer] Address [address] [place] [address] 7 [place] [address] Care Team Providers Care Knitting Machine Fixer Head Name Role Phone Jane Brewer Primary Care Provider [phone] Allergies Active Allergy Reactions Criticality Noted Date Comments Octacosanol 11/28/2023 Medications OLANZapine (ZyPREXA) 20 MG tabletIndications :Depression with anxiety TAKE 1 TABLET BY MOUTH AT BEDTIME 90 tablet 3 Active divalproex (Depakote) 500 MG EC tabletIndications :Bipolar affective disorder, current episode mixed, current episode severity unspecified (CMS/HCC) take 2 tablet by oral route twice daily 180 tablet 3 Active QUEtiapine (SEROquel) 200 MG tabletIndications :Bipolar affective disorder, current episode mixed, current episode severity unspecified (CMS/HCC) take 1 tablet by oral route every day at bedtime 90 tablet 3 Active Folate 400 MCG tabletIndications :Vitamin deficiency TAKE 1 TABLET BY ORAL ROUTE EVERY DAY FOR B VITAMIN 90 tablet 3 3 Active thiamine (Vitamin B-1) 100 MG tabletIndications :Vitamin deficiency TAKE 1 TABLET BY MOUTH EVERY DAY FOR B VITAMIN 90 tablet 3 3 Active hydrOXYzine pamoate (Vistaril) 50 MG capsule TAKE 1 CAPSULE BY MOUTH THREE TIMES A DAY NEEDED 90 capsule 3 3 Active QUEtiapine (SEROquel) 50 MG tabletIndications :Bipolar affective disorder, current episode mixed, current episode severity unspecified (CMS/HCC) TAKE 1 TABLET BY MOUTH EVERY DAY 90 tablet 1 3 Active atorvastatin (Lipitor) 10 MG tabletIndications :Hypercholesterol emia TAKE 1 TABLET BY MOUTH EVERYDAY AT BEDTIME 90 tablet 3 4 Active valACYclovir (Valtrex) 500 MG tabletIndications :Genital herpes simplex, unspecified site TAKE 1 TABLET BY MOUTH EVERY DAY 90 tablet 3 4 Active Sodium Fluoride (PreviDent 5000 Booster Plus) 1.1 % paste Please use pea size to brush your teeth twice daily. Spit. Do not rinse. 112 g 2 4 Active omega-3, maximum EPA, (fish oil) 1000 MG capsuleIndication s:Hypertriglyceri demia Take 1 capsule (1,000 mg) by mouth 2 times daily. 180 capsule 1 4 Active allopurinol (Zyloprim) 300 MG tablet TAKE 2 TABLETS BY MOUTH EVERY DAY 180 tablet 3 4 Active Multiple Vitamins-Minerals ([facility] Spectravite Adults) tablet TAKE 1 TABLET BY MOUTH EVERY DAY WITH FOOD 90 tablet 3 4 Active docusate sodium (Colace) 100 MG capsuleIndication s:Constipation, unspecified constipation type TAKE 1 CAPSULE BY MOUTH TWICE A DAY 180 capsule 3 4 Active loratadine (Claritin) 10 MG tablet TAKE 1 TABLET BY MOUTH EVERY DAY NEEDED FOR ALLERGIES 90 tablet 3 4 Active cloNIDine (Catapres) 0.1 MG tablet TAKE 1 TABLET BY MOUTH TWICE A DAY 180 tablet 3 4 Active omeprazole (PriLOSEC) [address] capsule TAKE 1 CAPSULE BY MOUTH EVERY DAY BEFORE A MEAL 90 capsule 1 4 Active tamsulosin (Flomax) 0.4 MG 24 hr capsuleIndication s:Benign prostatic hyperplasia with urinary frequency Take 1 capsule (0.4 mg) by mouth Once per day. 90 capsule 1 4 Active lisinopril 20 MG tabletIndications :Hypertension, unspecified type TAKE 1 TABLET BY MOUTH EVERY DAY IN THE MORNING 90 tablet 3 4 Active Active Problems Problem Noted Date Diagnosed Date Screening for lung cancer 07/13/2024 Overview (07/13/2024): order sent 07/13/24 Screening for malignant neoplasm of colon 01/03/ 2025 Overview (07/13/2024): 03/[address] Kemp, recommended colonoscopy within 3 to 5 years. Cocaine use disorder 03/10/2023 Sialadenitis 07/09/2022 Retinal hemorrhage 12/23/2017 Gout 11/20/2013 Mixed anxiety and depressive disorder 10/25/2012 Genital herpes simplex 10/25/2012 Erectile dysfunction 10/25/2012 Hypercholesterolemia 01/27/2012 Hypertension 01/27/2012 Tobacco dependence syndrome 01/27/2012 Alcohol abuse 01/27/2012 Backache 01/27/2012 Encounters Date Type Department Care Team Description 07/20/2024 Telephone [facility] [address] [place] [address] Arturo Zavala MA September recall 07/10/2024 Telephone [facility] [address] [place] [address] Jane Brewer ANP 07/02/[address] [address] Jane Brewer ANP Hypertension, unspecified type 06/01/2024 2:30 PM EST Office Visit [address] [address] Jane Brewer ANP Encounter for immunization (Primary Dx); Prostate cancer screening; Mixed anxiety and depressive disorder; Benign prostatic hyperplasia with urinary frequency; Shortness of breath; Primary hypertension; Screening for malignant neoplasm of colon; Screening for lung cancer 06/01/2024 Travel 05/31/2024 Telephone [facility] [address] [place] [address] Connie Williamson MA chart prep from Last 3 Months Immunizations Name Administration Dates Next Due Hep B, adult 03/15/2012,07/25/2008 Influenza injectable quadriv alent IIV4 with preservative 05/06/2016,06/23/2015 Influenza injectable quadriv alent preservative free 05/27/2023,08/02/2022,06/23/2021,2019,07/05/2019,04/13/2018,04/25/2017 Influenza, IIV3, injectable 05/21/2014, 1 Influenza, Split (incl. tana fied surface antigen) 07/18/2013,03/15/2012 Influenza, seasonal, injecta ble, preservative free 06/01/2024 Moderna Covid-19 Vaccine 12+ 06/23/2021,12/19/19 21,11/07/2020 Moderna Covid-19 Vaccine 6+ Bivalent 08/02/2022 Pfizer Covid-19 Vaccine 12+ 06/01/2024, Pneumococcal Conjugate PCV 20 05/27/2023 Td (adult), 5 Lf tetanus tox oid, preservative free, adsorbed 11/09/2015 Tdap 03/15/2012 Social History Tobacco Use Types Packs/Day Years [...] Orientation Straight 05/10/2022 10 :15 AM EDT Last Filed Vital Signs Vital Sign Reading Time Taken Comments Blood Pressure 142/105 06/01/2024 2:54 PM EST Pulse 70 06/01/2024 2:54 PM EST Temperature 36.7 ??C (98 ??F) 06/01/2024 2:54 PM EST Respiratory Rate 20 12/13/2023 9:18 AM EDT Oxygen Saturation 97% 06/01/2024 2:54 PM EST Inhaled Oxygen Concentration - - Weight 86 kg (189 lb 9.6 oz) 06/01/2024 2:54 PM EST Height 180.3 cm (5' 11 ) 12/13/2023 9:18 AM EDT Body Mass Index 26.44 12/13/2023 9:18 AM EDT Plan of Treatment Upcoming Encounters Date Type Department Care Team (Late st Contact Info) Description 09/12/2024 3:15 PM EST Office Visit [facility] [address] [place], [place] [phone] Jane Brewer ANP [address] [place] [address] Health Maintenance Due Date Last Done Comments CT Colonography 1966 Dental X-Ray: Full Mouth 1966 FIT DNA/Cologuard 1966 FIT 1966 FOBT 1966 Sigmoidoscopy 1966 Hepatitis A Vaccines (1 of 2 - Risk 2-dose series) 1985 Hepatitis B Vaccines (3 of 3 - 19+ 3-dose series) 05/10/2012 03/15/2012, 07/25/2008 Zoster Vaccines (1 of 2) 2016 Dental Oral Exam 05/31/2024 11/28/2023 Dental Prophylaxis 05/31/2024 11/28/2023 Dental X-Ray: Bitewings 11/28/2024 11/28/2023, 07/28 SDOH Screening 12/01/2024 12/02/2023 Colonoscopy 03/12/2025 08/01/2020 Colorectal Cancer Screening 03/12/2025 Alcohol/Substance Use Screening 06/01/2025 06/01/2024 Depression Screening 06/01/2025 06/01/2024, 06/01/20 Tobacco Screening 06/01/2025 06/01/2024 DTaP/Tdap/Td Vaccines (3 - Td or Tdap) 11/08/2025 11/09/2015, 03/15/2012 Lipid Panel 12/01/2026 12/01/2021 RSV Patients and Patients Aged 60 years or older (1 - 1-dose 75+ series) 2041 Pneumococcal Vaccine: 50+ Years Completed 05/27/2023 HIV Screening Completed 12/13/2023, 10/07/2020 Hepatitis C Screening Completed 12/13/2023, 021 COVID-19 Vaccine Completed 06/01/2024, , 08/02/2022, Additional history exists Influenza Vaccine Completed 06/01/2024, , 08/02/2022, Additional history exists HIB Vaccines Aged Out No longer eligi ble based on patient's age to complete this topic HPV Vaccines Aged Out No longer eligi ble based on patient's age to complete this topic IPV Vaccines Aged Out No longer eligi ble based on patient's age to complete this topic Meningococcal Vaccine Aged Out No mari matthew eligible based on patient's age to complete this topic RSV under 20 months Aged Out No longe r eligible based on patient's age to complete this topic Rotavirus Vaccines Aged Out No longer eligible based on patient's age to complete this topic Procedures Procedure Name Priority Date/Time Associated Diagnosis Comments XR CHEST 2 VIEWS Routine 06/01/2024 4:02 PM EST Shortness of breath HEPATITIS C AB W/REFL TO HCV RNA, QN, PCR Routine 12/13/2023 10:15 AM EDT Screening examination for STI HIV 1/2 ANTIGEN/ANTIBODY, FOURTH GENERATION W/RFL Routine 12/13/2023 10:15 AM EDT Screening examination for STI Full PROPHYLAXIS - ADULT Routine 11/28/2023 3:00 PM EDT BITEWINGS - 4 RADIOGRAPHIC IMAGES Routine 11/28/2023 3:00 PM EDT PERIODIC ORAL EVALUATION - ESTABLISHED PATIENT Routine 11/28/2023 3:00 PM EDT LIPID PANEL, STANDARD Routine 12/01/2021 11:20 AM EDT HM COLONOSCOPY Routine 08/01/2020 from Last 3 Months or Most Recently Relevant to Health Maintenance Results * XR Chest 2 Views (06/01/2024 4:02 PM EST) Anatomical Region Laterality Modality Chest Radiographic Simona ging 06/01/2024 4:02 PM EST Narrative 06/03/2024 10:12 AM EST ?[facility] ?[address] ?[place] [address] ?XRay Report ? Signed ? Patient: Mari,Silvana ?MR#: [id number] ?? [id number] ? : 1965 ?Acct:[id number] ? Age/Sex: 58 / M ?ADM Date: 06/01/24 ? Loc: HO.HHCX ? Attending Dr: Jane Brewer NP ? Ordering Physician: JANE BREWER NP ?? Date of Service: 06/01/24 ?? Procedure(s): XR chest 2V ?? Accession Number(s): [id number] ? cc: JANE BREWER NP ? EXAMINATION: [...] DD/ 1602 ? TD/TT: 06/01/24 1611 ? Home Organizer: ? Procedure Note Donelle, Tania - 06/03/2024 [facility] [address] [place] [address] XRay Report Signed Patient: Sailaja Guerra#: [id number] : 1965Acct:[id number] Age/Sex: 58 / MADM Date: 06/01/24 Loc: HO.HHCX Attending Dr: Jane Brewer NP Ordering Physician: JANE BREWER NP Date of Service: 06/01/24 Procedure(s): XR chest 2V Accession Number(s): [id number] cc: JANE BREWER NP EXAMINATION: XR CHEST CLINICAL INFORMATION: SOB, crackles COMPARISON: None available. TECHNIQUE: 2 views of the chest were obtained. FINDINGS: No significant abnormality is noted involving the heart, lungs, mediastinum, bony thorax or soft tissues. XR/XR chest 2V IMPRESSION: No acute disease Electronically signed by: Marlon Burton MD 06/03/2024 10:09 AM EST Dictated By: Marlon Burton MD Signed By: <Electronically signed by Marlon Burton MD in OV> 06/03/24 1009 DD/ 1602 TD/TT: 06/01/24 1611 Home Organizer: Jane Brewer ANP IMG XR PROCEDURES Final Result * Hepatitis C Antibody with Reflex to HCV, RNA, Quantitative, Real-Time PCR (12/13/2023 10:15 AM EDT) Hepatitis C Antibody Nonreactive Nonreactive [facility] Comment:Antibodies to HCV no t detected; does not exclude early acuteHCV infection. Blood Venous blood specimen / Unknown 12/13/2023 10:15 AM EDT 12/13/2023 11:48 AM EDT Jane Brewer ANP LAB BLOOD ORDERABLES Final Resul t [facility] [address] [place] [address] [phone] * HIV-1/2 Antigen and Antibodies, Fourth Generation, with Reflexes (12/13/2023 10:15 AM EDT) Pathologist [facility] HIV AB/AG Nonreactive Nonreactive [facility] Comment:HIV-1 p24 Ag and/or HIV-1/HIV-2 Ab not detected.A test result that is nonreactive does not exclude thepossibility of exposure to or infection with HIV-1 and/orHIV-2. Nonreactive results in this assay for individualswith prior exposure to HIV-1 and/or HIV-2 may be due toantigen and antibody levels that are below the limit ofdetection of this assay.The [employer] HIV Ag/Ab Combo assay result andsupplemental assay results should be interpreted inconjunction with the patient's clinical presentation,history and other laboratory results. If the results areinconsistent with clinical evidence, additional testing issuggested to confirm the result. Blood Venous blood specimen / Unknown 12/13/2023 10:15 AM EDT 12/13/2023 11:48 AM EDT Jane [facility] LAB BLOOD ORDERABLES Final Resul t Performing Organization Address [facility] Co de Phone Number [facility] [address] [place] [address] [phone] * (ABNORMAL) LIPID PANEL, STANDARD (12/01/2021 11:20 AM EDT) Pathologist [facility] Chol/HDLC Ratio 4.3 <5.0 (calc) [facility] Cholesterol, Total 182 <200 mg/dL [facility] HDL Cholesterol 42 > OR = 40 mg/dL [facility] LDL Cholesterol 113(H) mg/dL (calc) [facility] Comment: Reference range: <100 ?? Desirable range <100 mg/dL for primary prevention; ?? <70 mg/dL for patients with CHD or diabetic patients ?? with > or = 2 CHD risk factors. ?? LDL-C is now calculated using the Rojelio-Palmer ?? calculation, which is a validated novel method providing ?? better accuracy than the Friedewald equation in the ?? estimation of LDL-C. ?? Rojelio LEBRON et al. TAYLOR. 2013;310(19): 2626-6090 ?? (http://Funanga.PolySuite/faq/GEL491) Non-HDL Cholesterol 140(H) <130 mg/dL (calc) [facility] Comment: For patients with diabetes plus 1 major ASCVD risk ?? factor, treating to a non-HDL-C goal of <100 mg/dL ?? (LDL-C of <70 mg/dL) is considered a therapeutic ?? option. Triglycerides 157(H) <150 mg/dL [facility] 12/01/2021 11:2 0 AM EDT Jane Brewer [facility] LAB BLOOD ORDERABLES Final Resul t [facility] [address] * (ABNORMAL) Colonoscopy (08/01/2020) Colonoscopy Abnormal(A ) Normal Historical Provider HEALTH MAINTENANCE Final Result from Last 3 Months or Most Recently Relevant to Health Maintenance Insurance - [facility] Care Teams Knitting Machine Fixer Head Relationship Specialty Start Date End Date Jane Brewer ANP [address] [place] [phone] PCP - General Family Medicine 03/10/20
--- OUTSIDE RECORDS SUMMARY | 2024-08-08 17:10 | XMS_ITS | Encounter Summary ---
Author Organization [employer] Address [address] [facility] 7 [place] [address] Care Team Providers Care Piano Machine Operator Name Role Phone Christina Adamson Primary Care Provider [phone] Encounter Details Date Type Department Care Team ([facility] Contact Info) Description 07/28/2022 Orders Only [facility] MED & PEDS [address] [place], [place] [phone] Phyllis Camacho LPN Social History Tobacco Use Types Packs/Day Years Used Date Smoking Tobacco: Every Day Cigarettes Smokeless Tobacco: Never Alcohol Use Standard Drinks/Week Comments Yes 0 (1 standard drink = 0.6 oz pur e alcohol) 2x week Sex and Gender Information Value Date Recorded Sex Assigned at Male 05/10/2022 10:15 AM EDT Legal Sex Male 10:15 AM EDT Gender Identity Male 05/10/2022 10:15 AM EDT Sexual Orientation Straight 05/10/2022 10 :15 AM EDT COVID-19 Exposure Response Date Recorded In the last 10 days, have audi u been in contact with someone who was confirmed or suspected to have Coronavirus/COVID-19? No / Unsure 07/29/2022 1:24 PM EST documented as of this encounter Plan of Treatment Upcoming Encounters Date Type Department Care Team (Late Contact Info) Description 09/12/2024 3:15 PM EST Office Visit [facility] [address] [place], [place] [phone] Christina Adamson ANP [address] [place], [place] [phone] documented as of this encounter Visit Diagnoses Not on filedocumented in this encounter Care Teams Piano Machine Operator Relationship Specialty Start Date End Date Christina Adamson ANP [address] [place] [address] PCP - General Family Medicine 03/10/20 documented as of this encounter
--- OUTSIDE RECORDS SUMMARY | 2024-08-08 17:11 | XMS_ITS | Encounter Summary ---
Author Organization [email or web address] Address [address] [place] [address] 7 [place] [address] Care Team Providers Care Test Lead Application Testing Name Role Phone Christina Adamson Primary Care Provider [phone] Encounter Details Date Type Department Care Team (Late st Contact Info) Description 09/08/2022 Orders Only [facility] MED & PEDS [address] [place], [place] [phone] Phyllis Camacho LPN Social History Tobacco Use [...] Description 09/12/2024 3:15 PM EST Office Visit [facility] [address] [place] [address] Christina Adamson ANP [address] [place] [address] documented as of this encounter Visit Diagnoses Not on filedocumented in this encounter Care Teams Test Lead Application Testing Relationship Specialty Start Date End Date Christina Adamson ANP [address] [place] [phone] PCP - General Family Medicine 03/10/20 documented as of this encounter
--- OUTSIDE RECORDS SUMMARY | 2024-08-08 17:11 | XMS_ITS | Encounter Summary ---
Author Organization [employer] Address [address] [place] [address] 7 [place] [address] Care Team Providers Care Unloader Name Role Phone Christina Adamson Primary Care Provider [phone] Encounter Details Date Type Department Care Team (Latest Contact Info) Description 05/18/2022 Abstract [facility] Dental, Provider, DDS Social History Tobacco [...] Description 09/12/2024 3:15 PM EST Office Visit [facility] [address] [place] [address] Christina Adamson ANP [address] [place] [address] documented as of this encounter Visit Diagnoses Not on filedocumented in this encounter Care Teams Unloader Relationship Specialty Start Date End Date Christina Adamson ANP [address] [place] [address] PCP - General Family Medicine 03/10/20 documented as of this encounter
--- OUTSIDE RECORDS SUMMARY | 2024-08-08 17:11 | XMS_ITS | Encounter Summary ---
Author Organization [employer] Address [address] [place] [address] 7 [place] [address] Care Team Providers Care Interventional Pain Physician Name Role Phone Christina Adamson Primary Care Provider [phone] Encounter Details Date Type Department Care Team (Late st Contact Info) Description 01/14/2023 Orders Only [facility] CH[facility] MED & PEDS [address] [place], [place] [phone] Phyllis Camacho LPN Social History Tobacco Use [...] Description 09/12/2024 3:15 PM EST Office Visit [facility] MED[facility]INE [address] [place] [address] Christina Adamson ANP [address] [place] [address] documented as of this encounter Visit Diagnoses Not on filedocumented in this encounter Care Teams Interventional Pain Physician Relationship Specialty Start Date End Date Christina Adamson ANP [address] [place] [address] PCP - General Family Medicine 03/10/20 documented as of this encounter
--- OUTSIDE RECORDS SUMMARY | 2024-08-08 17:11 | XMS_ITS | Encounter Summary ---
Author Organization [employer] Address [address] [place] [address] [address] [place] [address] Care Team Providers Care Standpipe Tender Name Role Phone Christina Adamson Primary Care Provider [phone] Reason for Visit * Reason Comments Med Refill Encounter Details Date Type Department Care Team (Late st Contact Info) Description 10/26/[address] [facility] [address] [place] [address] [phone] Christina Adamson ANP [address] [place], [place] [phone] Bipolar affective disorder, current episode mixed, current episode severity unspecified (CMS/HCC) Social History Tobacco Use Types Packs/Day Years [...] Recorded In the last 10 days, have yo u been in contact with someone who was confirmed or suspected to have Coronavirus/COVID-19? No / Unsure 10/14/2022 9:38 AM EDT documented as of this encounter Plan of Treatment Upcoming Encounters Date Type Department Care Team (Late Contact Info) Description 09/12/2024 3:15 PM EST Office Visit [facility] [address] [place] [address] Christina Adamson ANP [address] [place] [address] documented as of this encounter Visit Diagnoses Diagnosis Bipolar affective disorder, current episode mixed, current episode severity unspecified (CMS/[facility]) documented in this encounter Care Teams Standpipe Tender Relationship Specialty Start Date End Date Christina Adamson ANP [address] [place] [address] PCP - General Family Medicine 03/10/20 documented as of this encounter
--- OUTSIDE RECORDS SUMMARY | 2024-08-08 17:11 | XMS_ITS | Encounter Summary ---
Author Organization [employer] Address [address] [facility] 7 [place] [address] Care Team Providers Care Fruit Dumper Name Role Phone Christina Adamson Primary Care Provider [phone] Encounter Details Date Type Department Care Team (Late Contact Info) Description 08/23/2022 Orders Only [facility] CHC MED & PEDS [address] [place], [place] [phone] Phyllis Camacho LPN Social History Tobacco Use [...] suspected to have Coronavirus/COVID-19? No / Unsure 08/02/2022 10:41 AM EST documented as of this encounter Plan of Treatment Upcoming Encounters Date Type Department Care Team (Late Contact Info) Description 09/12/2024 3:15 PM EST Office Visit [facility] [address] [place], [place] [phone] Christina Adamson ANP [address] [place], [place] [phone] documented as of this encounter Visit Diagnoses Not on filedocumented in this encounter Care Teams Fruit Dumper Relationship Specialty Start Date End Date Christina Adamson ANP [address] [place] [address] PCP - General Family Medicine 03/10/20 documented as of this encounter
--- OUTSIDE RECORDS SUMMARY | 2024-08-08 17:11 | XMS_ITS | Encounter Summary ---
Author Organization [employer] Address [address] [place] [address] 7 [place] [address] Care Team Providers Care Nursing Unit Clerk Name Role Phone Christina Adamson Primary Care Provider [phone] Encounter Details Date Type Department Care Team (Late Contact Info) Description 12/09/2022 Orders Only [facility] CH[facility] MED & PEDS [address] [place], [place] [phone] Phyllis Camacho LPN Social History Tobacco Use [...] 09/12/2024 3:15 PM EST Office Visit [facility] [address] [place] [address] Christina Adamson ANP [address] [place] [address] documented as of this encounter Visit Diagnoses Not on filedocumented in this encounter Care Teams Nursing Unit Clerk Relationship Specialty Start Date End Date Christina Adamson ANP [address] [place] [address] PCP - General Family Medicine 03/10/20 documented as of this encounter
--- OUTSIDE RECORDS SUMMARY | 2024-08-08 17:11 | XMS_ITS | Encounter Summary ---
Author Organization [employer] Address [address] [place] [address] 7 [place] [address] Care Team Providers Care Research Intern Name Role Phone Christina Adamson Primary Care Provider [phone] Reason for Visit * Reason Comments Med Refill Encounter Details Date Type Department Care Team (Late st Contact Info) Description 09/08/2022 Refill [facility] MED[facility]INE [address] [place] [address] [phone] Robinson Rodriguez MD [address] [place] [address] [phone] Bipolar affective disorder, current episode mixed, current [...] Description 09/12/2024 3:15 PM EST Office Visit [facility] MED[facility]INE [address] [place] [address] [phone] Christina Adamson ANP [address] [place], [place] [phone] documented as of this encounter Visit Diagnoses Diagnosis Bipolar affective disorder, current episode mixed, current episode severity unspecified (CMS/[facility]) documented in this encounter Care Teams Research Intern Relationship Specialty Start Date End Date Christina Adamson ANP [address] [place] [address] PCP - General Family Medicine 03/10/20 documented as of this encounter
--- OUTSIDE RECORDS SUMMARY | 2024-08-08 17:11 | XMS_ITS | Encounter Summary ---
Author Organization [employer] Address 75 [facility] 7 [place] [address] Care Team Providers Care Mule Operator Name Role Phone Christina Adamson VIDHYA Primary Care Provider [phone] Reason for Visit * Reason Comments Med Refill Encounter Details Date Type Department Care Team ([facility] Contact Info) Description 09/29/2022 Refill [facility] MEDICINE [address] [place], [place] [phone] Robinson Rodriguez MD 230 [place] [address] Bipolar affective disorder, current episode mixed, current [...] suspected to have Coronavirus/COVID-19? No / Unsure 09/17/2022 9:14 AM EST documented as of this encounter Plan of Treatment Upcoming Encounters Date Type Department Care Team ([facility] Contact Info) Description 09/12/2024 3:15 PM EST Office Visit [facility] MEDICINE [address] [place] [address] Christina Adamson ANP [address] [place] [address] documented as of this encounter Visit Diagnoses Diagnosis Bipolar affective disorder, current episode mixed, current episode severity unspecified (CMS/[facility]) documented in this encounter Care Teams Mule Operator Relationship Specialty Start Date End Date Christina Adamson ANP 230 [place] [address] PCP - General Family Medicine 03/10/20 documented as of this encounter
--- OUTSIDE RECORDS SUMMARY | 2024-08-08 17:11 | XMS_ITS | Encounter Summary ---
Author Organization [employer] Address 75 [facility] 7 [place] [address] Care Team Providers Care Hand Presser Name Role Phone Christina Adamson Primary Care Provider [phone] Reason for Visit * Reason Comments Med Refill Encounter Details Date Type Department Care Team ([facility] Contact Info) Description 06/03/2023 Refill [facility] MEDICINE [address] [place], [place] [phone] Christina Adamson ANP [address] [place] [address] Bipolar affective disorder, current episode mixed, current episode severity unspecified (CMS/HCC); Hypercholesterolemia Social History Tobacco Use Types Packs/Day Years Used Date Smoking Tobacco: Every Day Cigarettes Passive Smoke Exposure: Never Smokeless Tobacco: Never Alcohol Use Standard Drinks/Week Comments Yes 8 (1 standard drink = 0.6 oz pur e alcohol) 2x week Housing Stability Answer Date Recorded What is [...] Answer Date Recorded Patient Health Questionnaire-2 Score 0 03/10/2023 Sex and Gender Information Value Date Recorded Sex Assigned at Male 05/10/2022 10:15 AM EDT Legal Sex Male 10:15 AM EDT Gender Identity Male 05/10/2022 10:15 AM EDT Sexual Orientation Straight 05/10/2022 10 :15 AM EDT documented as of this encounter Plan of Treatment Upcoming Encounters Date Type Department Care Team (Late st Contact Info) Description 09/12/2024 3:15 PM EST Office Visit [facility] MEDICINE [address] [place] [phone] Christina Adamson ANP [address] [place] [address] documented as of this encounter Visit Diagnoses Diagnosis Bipolar affective disorder, current episode mixed, current episode severity unspecified (CMS/[facility]) Hypercholesterolemia Pure hypercholesterolemia documented in this encounter Care Teams Hand Presser Relationship Specialty Start Date End Date Christina Adamson ANP [address] [place] [address] PCP - General Family Medicine 03/10/20 documented as of this encounter
--- OUTSIDE RECORDS SUMMARY | 2024-08-08 17:11 | XMS_ITS | Encounter Summary ---
Author Organization [employer] Address [address] [place] [address] 7 [place] [address] Care Team Providers Care Sledger Name Role Phone Christina Adamson Primary Care Provider [phone] Encounter Details Date Type Department Care Team (Late st Contact Info) Description 01/28/2023 Orders Only [facility] MEDICINE [address] [place] [phone] Juany Cabral LPN Social History Tobacco Use Types Packs/Day [...] 3:15 PM EST Office Visit [facility] MEDICINE [address] [place] [address] Christina Adamson ANP [address] [place] [address] documented as of this encounter Visit Diagnoses Not on filedocumented in this encounter Care Teams Sledger Relationship Specialty Start Date End Date Christina Adamson ANP [address] [place] [address] PCP - General Family Medicine 03/10/20 documented as of this encounter
== END 2024-08-08 15:58 | disposition home or self-care (01) ==
PROVIDERS: PCP Nurse Practitioner Primary Care; Visit Provider Internal Medicine
DX: R07.2 Precordial pain (principal); F14.10 Cocaine abuse, uncomplicated; I10 Essential (primary) hypertension; E78.00 Pure hypercholesterolemia, unspecified
CPT/HCPCS: 93010; 99214

== ENCOUNTER → 2024-08-08 15:08 | Outpatient (BNVA) | payer OTHER, SELFPAY | PROVIDERS: PCP Nurse Practitioner Primary Care; Visit Provider Internal Medicine | DX: R07.2 Precordial pain (principal); E78.00 Pure hypercholesterolemia, unspecified; I10 Essential (primary) hypertension; F14.10 Cocaine abuse, uncomplicated; R94.31 Abnormal electrocardiogram [ECG] [EKG] | CPT/HCPCS: 93005; 99212 ==

== ENCOUNTER 2025-03-20 15:02 | Outpatient (REF) | payer OTHER, SELFPAY ==
[2025-03-20 16:04] LABS: MANUAL DIFF FLAG NO
[2025-03-20 16:27] LABS: Hematocrit 35.7 % (42.0-52.0); Hemoglobin 12.5 g/dl (14.0-18.0); Imm Gran Abs Auto 0.03 X10*3/uL (0.00-0.03); Imm Gran Pct Auto 0.5 % (0.0-0.4); Lymphocytes Absolute Auto 2.2 X10*3/uL (1.2-4.9); Mean Corpuscular HGB Conc 35.0 g/dl (31.0-36.0); Mean Corpuscular Hemoglobin 35.3 pg (27.0-33.0); Mean Corpuscular Volume 100.8 fL (80.0-98.0); NRBC Abs Auto 0.000 X10*3/uL (0.0-0.012); NRBC Pct Auto 0.0 /100WBC (0.0-0.2); Platelet Count 175 X10*3/uL (160-400); Red Blood Count 3.54 X10*6/uL (4.60-5.80); White Blood Count 6.0 X10*3/uL (4.8-10.8)
[2025-03-20 16:28] LABS: Hematocrit 37.2 % (42.0-52.0); Hemoglobin 12.5 g/dl (14.0-18.0)
[2025-03-20 16:50] LABS: Alanine Aminotransferase 29 U/L (0-40); Albumin Level 4.4 g/dL (3.5-5.0); Alkaline Phosphatase 77 U/L (39-117); Anion Gap 13 (12-20); Aspartate Amino Transferase 27 U/L (5-37); Blood Urea Nitrogen 14 mg/dL (9-16); Calcium 8.9 mg/dL (8.4-10.2); Carbon Dioxide 26 mmol/L (22-29); Chloride 109 mmol/L (96-108); Estimated Glomerular Filt Rate > 60; Potassium 4.6 mmol/L (3.3-5.1); Sodium 143 mmol/L (135-145); Total Protein 6.5 g/dL (6.5-8.0)
[2025-03-20 16:59] LABS: Prostate Specific Antigen 0.52 ng/mL (<0.05-4.0)
--- OUTSIDE RECORDS SUMMARY | 2025-03-20 18:10 | XMS_ITS | Encounter Summary ---
Author Organization [employer] Address [address] [facility] [address] 7t [place] [address] Care Team Providers Care Core Winding Operator Name Role Phone Snow Christina KEE Primary Care Provider [phone] Encounter Details Date Type Department Care Team (Late Contact Info) Description 07/28/2022 Orders Only [facility] MED & PEDS [address] [place] [address] Phyllis Camacho LPN Social History Tobacco Use [...] Care Team (Late st Contact Info) Description 03/28/2025 2:30 PM EDT Office Visit [facility] ADULT DENTAL [address] [place] [address] Torsten Stephenson, AISLINN 505 [place] [address] 05/08/2025 3:00 PM EDT Office Visit [facility] ADULT DENTAL [address] [place] [address] Kit Lopez documented as of this encounter Visit Diagnoses Not on filedocumented in this encounter Care Teams Core Winding Operator Relationship Specialty Start Date End Date Christina Adamson ANP [address] [place] [address] PCP - General Family Medicine 03/10/20 documented as of this encounter
--- OUTSIDE RECORDS SUMMARY | 2025-03-20 18:10 | XMS_ITS | Encounter Summary ---
Author Organization [employer] Address [address] [facility] [address] 7t [place] [address] Care Team Providers Care Superintendent Compressor Stations Name Role Phone Christina Adamson Primary Care Provider [phone] Reason for Visit * Reason Comments Med Refill Encounter Details Date Type Department Care Team ([facility] st Contact Info) Description 06/03/2023 Refill [facility] MEDICINE [address] [place], [place] [phone] Christina Adamson ANP 230 [place] [address] Bipolar affective disorder, current episode mixed, current [...] Description 03/28/2025 2:30 PM EDT Office Visit [facility] ADULT DENTAL [address] [place] [address] Torsten Stephenson, AISLINN 505 [place] [address] 05/08/2025 3:00 PM EDT Office Visit [facility] ADULT DENTAL [address] [place] [address] Kit Lopez documented as of this encounter Visit Diagnoses Diagnosis Bipolar affective disorder, current episode mixed, current episode severity unspecified (CMS/HCC) Hypercholesterolemia Pure hypercholesterolemia documented in this encounter Care Teams Superintendent Compressor Stations Relationship Specialty Start Date End Date Christina Adamson ANP [address] [place] [address] PCP - General Family Medicine 03/10/20 documented as of this encounter
--- OUTSIDE RECORDS SUMMARY | 2025-03-20 18:10 | XMS_ITS | Encounter Summary ---
Author Organization [employer] Address [address] [facility] [address] 7t [place] [address] Care Team Providers Care Bariatric Nurse Name Role Phone Christina Adamson Primary Care Provider [phone] Reason for Visit * Reason Onset Date Comments rs no show appt 01/14/2025 Encounter Details Date Type Department Care Team ([facility] Contact Info) Description 01/14/2025 Telephone [facility] ADULT DENTAL 505 [place], [place] [phone] Torsten Stephenson, DMD 505 [place] [address] rs no show appt Social History Tobacco Use Types Packs/Day Years [...] encounter Miscellaneous Notes * Telephone Encounter - Margi Perera - 01/14/2025 10:47 AM EDT Patient is looking to rs no show appt 11/28 due to vacation . Patient is aware there is a waiting period prior to rs no show appt. Patient stated he will call after 01/28 for rescheduling as that is the date for waiting period to be over DR documented in this encounter Plan of Treatment Upcoming Encounters Date Type Department Care Team (Late st Contact Info) Description 03/28/2025 2:30 PM EDT Office Visit [facility] ADULT DENTAL 505 [place] [address] Torsten Stephenson DMD [address] [place] [address] 05/08/2025 3:00 PM EDT Office Visit [facility] ADULT DENTAL [address] [place] [address] Kit Lopez documented as of this encounter Visit Diagnoses Not on filedocumented in this encounter Additional Health Concerns Assessment Noted Time PHQ-9 Depression Total Score: 5 06/01/20 24 3:43 PM EST documented as of this encounter Care Teams Bariatric Nurse Relationship Specialty Start Date End Date Christina Adamson ANP 230 [place] [address] PCP - General Family Medicine 03/10/20 documented as of this encounter
--- OUTSIDE RECORDS SUMMARY | 2025-03-20 18:10 | XMS_ITS | Encounter Summary ---
Author Organization [employer] Address [address] [facility] [address] 7t [place] [address] Care Team Providers Care Product Engineer Name Role Phone Christina Adamson Primary Care Provider [phone] Reason for Visit * Reason Onset Date Comments protestant appt 02/06/2025 Encounter Details Date Type Department Care Team ([facility] Contact Info) Description 02/06/2025 Telephone [facility] CHC ADULT DENTAL [address] [place], [place] [phone] Torsten Stephenson, DMD 505 [place] [address] protestant appt Social History Tobacco Use Types Packs/Day [...] * Telephone Encounter - Margi Perera - 02/06/2025 10:10 AM EDT Patient came for appt on 02/04 and left without scheduling next protestant visit. Patient would like his next appt. Explained to patient that appt is active requested however provider did not have immediate appt slots available and he will receive a call from office to schedule. Patient understoodDR documented in this encounter Plan of Treatment Upcoming Encounters Date Type Department Care Team (Late st Contact Info) Description 03/28/2025 2:30 PM EDT Office Visit [facility] ADULT DENTAL [address] [place] [address] Torsten Stephenson DMD [address] [place] [address] 05/08/2025 3:00 PM EDT Office Visit [facility] ADULT DENTAL [address] [place] [address] Kit Lopez documented as of this encounter Visit Diagnoses Not on filedocumented in this encounter Additional Health Concerns Assessment Noted Time PHQ-9 Depression Total Score: 5 06/01/20 24 3:43 PM EST documented as of this encounter Care Teams Product Engineer Relationship Specialty Start Date End Date Christina Adamson ANP 230 [place] [address] PCP - General Family Medicine 03/10/20 documented as of this encounter
--- OUTSIDE RECORDS SUMMARY | 2025-03-20 18:10 | XMS_ITS | Encounter Summary ---
Author Organization [employer] Address [address] [facility] 7t [place] [address] Care Team Providers Care Air Brake Tester Name Role Phone Christina Adamson Primary Care Provider [phone] Encounter Details Date Type Department Care Team (Late Contact Info) Description 09/08/2022 Orders Only [facility] MED & PEDS [address] [place] [address] Phyllis Camacoh LPN Social History Tobacco Use Types Packs/Day [...] 03/28/2025 2:30 PM EDT Office Visit [facility] ADULT DENTAL [address] [place] [address] Torsten Stephenson, AISLINN [address] [place] [address] 05/08/2025 3:00 PM EDT Office Visit [facility] ADULT DENTAL [address] [place] [address] Kit Lopez documented as of this encounter Visit Diagnoses Not on filedocumented in this encounter Care Teams Air Brake Tester Relationship Specialty Start Date End Date Christina Adamson ANP [address] [place] [address] PCP - General Family Medicine 03/10/20 documented as of this encounter
--- OUTSIDE RECORDS SUMMARY | 2025-03-20 18:10 | XMS_ITS | Encounter Summary ---
Author Organization [employer] Address [address] [facility] [address] 7t [place] [address] Care Team Providers Care Member Of Parliament Name Role Phone Snow Christina KEE Primary Care Provider [phone] Reason for Visit * Reason Comments Med Refill Encounter Details Date Type Department Care Team (Late Contact Info) Description 09/29/2022 Refill [facility] MEDICINE [address] [place], [place] [phone] Robinson Rodriguez MD 230 [place] [address] Bipolar affective disorder, current episode mixed, current episode severity unspecified (CMS/[facility]) Social History Tobacco Use Types Packs/Day Years [...] Upcoming Encounters Date Type Department Care Team ([facility] Contact Info) Description 03/28/2025 2:30 PM EDT Office Visit [facility] CHC ADULT DENTAL [address] [place] [address] Torsten Stephenson, DMD 505 [place] [address] 05/08/2025 3:00 PM EDT Office Visit [facility] ADULT DENTAL 505 [place] [address] Kit Lopez documented as of this encounter Visit Diagnoses Diagnosis Bipolar affective disorder, current episode mixed, current episode severity unspecified (CMS/[facility]) documented in this encounter Care Teams Member Of Parliament Relationship Specialty Start Date End Date Christina Adamson ANP [address] [place] [address] PCP - General Family Medicine 03/10/20 documented as of this encounter
--- OUTSIDE RECORDS SUMMARY | 2025-03-20 18:10 | XMS_ITS | Encounter Summary ---
Author Organization [employer] Address [address] [facility] 7t [place] [address] Care Team Providers Care Equipment Technician Name Role Phone Snow Christina KEE Primary Care Provider [phone] Encounter Details Date Type Department Care Team (Late Contact Info) Description 01/14/2023 Orders Only [facility] MED & PEDS [address] [place] [address] Phyllis Camacho LPN Social History Tobacco Use [...] Department Care Team (Late Contact Info) Description 03/28/2025 2:30 PM EDT Office Visit [facility] ADULT DENTAL [address] [place] [address] Torsten Stephenson, AISLINN 505 [place] [address] 05/08/2025 3:00 PM EDT Office Visit [facility] ADULT DENTAL [address] [place] [address] Kit Lopez documented as of this encounter Visit Diagnoses Not on filedocumented in this encounter Care Teams Equipment Technician Relationship Specialty Start Date End Date Christina Adamson ANP [address] [place] [address] PCP - General Family Medicine 03/10/20 documented as of this encounter
--- OUTSIDE RECORDS SUMMARY | 2025-03-20 18:10 | XMS_ITS | Encounter Summary ---
Author Organization [employer] Address [address] [facility] [address] 7t [place] [address] Care Team Providers Care Oncology Transplant Network Manager Name Role Phone Snow Christina KEE Primary Care Provider Encounter Details Date Type Department Care Team (Late Contact Info) Description 08/23/2022 Orders Only [facility] MED & PEDS [address] [place] [address] Phyllis Camacho LPN Social History Tobacco Use [...] Description 03/28/2025 2:30 PM EDT Office Visit [facility] ADULT DENTAL [address] [place] [address] Torsten Stephenson, AISLINN 505 [place] [address] 05/08/2025 3:00 PM EDT Office Visit [facility] ADULT DENTAL [address] [place] [address] Kit Lopez documented as of this encounter Visit Diagnoses Not on filedocumented in this encounter Care Teams Oncology Transplant Network Manager Relationship Specialty Start Date End Date Christina Adamson ANP 230 [place] [address] PCP - General Family Medicine 03/10/20 documented as of this encounter
--- OUTSIDE RECORDS SUMMARY | 2025-03-20 18:10 | XMS_ITS | Clinical Summary ---
Author Organization [employer] [facility] ity Address [address] [place] [address] Care Team Providers Care Underground Conduit Installer Name Role Phone Unavailable Primary Care Provider Unavailabl e Social History Tobacco Use Types Packs/Day Years Used Date Smoking Tobacco: Never Assessed Sex and Gender Information Value Date Recorded Sex Assigned at Not on file Legal Sex Male 3:17 PM EST Gender Identity Not on file Sexual Orientation Not on file Plan of Treatment Health Maintenance Due Date Last Done Comments DTaP,Tdap,and Td Vaccines (1 - Tdap) 1985 Hepatitis B Vaccines (1 of 3 - 19+ 3-dose series) 1985 Pneumococcal Vaccine: 50+ Ye ars (1 of 1 - PCV) 2016 Zoster Vaccines (1 of 2) 2016 COVID-19 Vaccine (1 - 2023-2 5 season) 2024 Depression Screening 07/11/2024 Influenza Vaccine (#1) 2025 HIB Vaccines Aged Out No longer eligi [...] patient's age to complete this topic Meningococcal B Vaccine Aged Out No l onger eligible based on patient's age to complete this topic RSV Immunization Patients Un oriana 20 months Aged Out No longer eligible b ased on patient's age to complete this topic Varicella Vaccines Aged Out No longer eligible based on patient's age to complete this topic
--- OUTSIDE RECORDS SUMMARY | 2025-03-20 18:10 | XMS_ITS | Encounter Summary ---
Author Organization [employer] [facility] Address [address] [facility] 7t [place] [address] Care Team Providers Care Feed Elevator Worker Name Role Phone Christina Adamson Primary Care Provider [phone] Encounter Details Date Type Department Care Team (Latest Contact Info) Description 05/18/2022 Abstract [facility] CONVERSIONS Dental, Provider, DDS Social History Tobacco [...] Description 03/28/2025 2:30 PM EDT Office Visit [facility] ADULT DENTAL [address] [place] [address] Torsten Stephenson DMD [address] [place] [address] 05/08/2025 3:00 PM EDT Office Visit [facility] ADULT DENTAL [address] [place] [address] Kit Lopez documented as of this encounter Visit Diagnoses Not on filedocumented in this encounter Care Teams Feed Elevator Worker Relationship Specialty Start Date End Date Christina Adamson ANP [address] [place] [address] PCP - General Family Medicine 03/10/20 documented as of this encounter
--- OUTSIDE RECORDS SUMMARY | 2025-03-20 18:10 | XMS_ITS | Encounter Summary ---
Author Organization [employer] Address [address] [facility] [address] 7t [place] [address] Care Team Providers Care Plate Setter Name Role Phone Christina Adamson Primary Care Provider [phone] Reason for Visit * Reason Onset Date Comments Med Refill 02/25/2025 Encounter Details Date Type Department Care Team ([facility] Contact Info) Description 02/25/2025 Telephone [facility] MEDICINE 230 [place], [place] [phone] Christina Adamson ANP 230 [place], [place] [phone] Med Refill Social History Tobacco Use Types Packs/Day Years [...] the past 12 months, has t he [employer], gas, oil or water company threatened to [...] encounter Miscellaneous Notes * Telephone Encounter - Phyllis Camacho LPN - 02/25/2025 12:47 PM EDT Medication prescribed by RACHEL WATKINS * Telephone Encounter - Melvi Banks - 02/25/2025 12:40 PM EDT TC from pt requesting medication refill. Medications needing refill : QUEtiapine (SEROquel) 50 MG tablet To be sent to: [facility]/pharmacy #[id number] [facility] [phone] [facility] documented in this encounter Plan of Treatment Upcoming Encounters Date Type Department Care Team (Late st Contact Info) Description 03/28/2025 2:30 PM EDT Office Visit [facility] CH[facility] ADULT DENTAL [address] [place] [address] Torsten Stephenson, AISLINN [address] [place] [address] 05/08/2025 3:00 PM EDT Office Visit [facility] ADULT DENTAL [address] [place] [address] Kit Lopez documented as of this encounter Visit Diagnoses Not on filedocumented in this encounter Additional Health Concerns Assessment Noted Time PHQ-9 Depression Total Score: 5 06/01/20 24 3:43 PM EST documented as of this encounter Care Teams Plate Setter Relationship Specialty Start Date End Date Christina Adamson ANP [address] [place] [address] PCP - General Family Medicine 03/10/20 documented as of this encounter
--- OUTSIDE RECORDS SUMMARY | 2025-03-20 18:10 | XMS_ITS | Encounter Summary ---
Author Organization [employer] Address [address] [facility] 7t [place] [address] Care Team Providers Care Dining Services Manager Name Role Phone Snow Christina KEE Primary Care Provider [phone] Encounter Details Date Type Department Care Team (Late Contact Info) Description 12/09/2022 Orders Only [facility] MED & PEDS [address] [place] [address] Phyllis Camacho LPN Social History Tobacco Use [...] Description 03/28/2025 2:30 PM EDT Office Visit [facility] ADULT DENTAL [address] [place] [address] Torsten Stephenson, AISLINN 505 [place] [address] 05/08/2025 3:00 PM EDT Office Visit [facility] ADULT DENTAL [address] [place] [address] Kit Lopez documented as of this encounter Visit Diagnoses Not on filedocumented in this encounter Care Teams Dining Services Manager Relationship Specialty Start Date End Date Christina Adamson ANP 230 [place] [address] PCP - General Family Medicine 03/10/20 documented as of this encounter
--- OUTSIDE RECORDS SUMMARY | 2025-03-20 18:10 | XMS_ITS | Clinical Summary ---
Author Organization [employer] Address [address] [facility] 7t [place] [address] Care Team Providers Care Community Associate Name Role Phone Christina Adamson Primary Care Provider [phone] Allergies Active Allergy Reactions Criticality Noted Date Comments Octacosanol 11/28/2023 Medications OLANZapine (ZyPREXA) 20 MG tabletIndication s:Depression with anxiety TAKE 1 TABLET BY MOUTH AT BEDTIME 90 tablet 07/28/19 23 Active divalproex (Depakote) 500 MG EC tabletIndication s:Bipolar affective disorder, current episode mixed, current episode severity unspecified (CMS/HCC) take 2 tablet by oral route twice daily 180 tablet 07/29/19 23 Active QUEtiapine (SEROquel) 200 MG tabletIndication s:Bipolar affective disorder, current episode mixed, current episode severity unspecified (CMS/HCC) take 1 tablet by oral route every day at bedtime 90 tablet 07/29/19 23 Active Folate 400 MCG tabletIndication s:Vitamin deficiency TAKE 1 TABLET BY ORAL ROUTE EVERY DAY FOR B VITAMIN 90 tablet 3 09/11/19 23 Active thiamine (Vitamin B-1) 100 MG tabletIndication s:Vitamin deficiency TAKE 1 TABLET BY MOUTH EVERY DAY FOR B VITAMIN 90 tablet 3 09/11/19 23 Active hydrOXYzine pamoate (Vistaril) 50 MG capsule TAKE 1 CAPSULE BY MOUTH THREE TIMES A DAY NEEDED 90 capsule 3 12/11/19 23 Active QUEtiapine (SEROquel) 50 MG tabletIndication s:Bipolar affective disorder, current episode mixed, current episode severity unspecified (CMS/HCC) TAKE 1 TABLET BY MOUTH EVERY DAY 90 tablet 1 01/22/20 23 Active Sodium Fluoride (PreviDent 5000 Booster Plus) 1.1 % paste Please use pea size to brush your teeth twice daily. Spit. Do not rinse. 112 g 2 11/28/19 24 Active allopurinol (Zyloprim) 300 MG tablet TAKE 2 TABLETS BY MOUTH EVERY DAY 180 tablet 3 01/03/20 24 Active Multiple Vitamins-Mineral s ([facility] Spectravite Adults) tablet TAKE 1 TABLET BY MOUTH EVERY DAY WITH FOOD 90 tablet 3 03/26/20 24 Active docusate sodium (Colace) 100 MG capsuleIndicatio ns:Constipation, unspecified constipation type TAKE 1 CAPSULE BY MOUTH TWICE A DAY 180 capsule 3 03/26/20 24 Active loratadine (Claritin) 10 MG tablet TAKE 1 TABLET BY MOUTH EVERY DAY NEEDED FOR ALLERGIES 90 tablet 3 03/26/20 24 Active cloNIDine (Catapres) 0.1 MG tablet TAKE 1 TABLET BY MOUTH TWICE A DAY 180 tablet 3 04/16/20 24 Active lisinopril 20 MG tabletIndication s:Hypertension, unspecified type TAKE 1 TABLET BY MOUTH EVERY DAY IN THE MORNING 90 tablet 3 07/02/20 24 Active atorvastatin (Lipitor) 10 MG tabletIndication s:Hypercholester olemia TAKE 1 TABLET BY MOUTH EVERYDAY AT BEDTIME 90 tablet 3 08/30/19 25 Active valACYclovir (Valtrex) 500 MG tabletIndication s:Genital herpes simplex, unspecified site TAKE 1 TABLET BY MOUTH EVERY DAY 90 tablet 3 10/20/19 25 Active tamsulosin (Flomax) 0.4 MG 24 hr capsuleIndicatio ns:Benign prostatic hyperplasia with urinary frequency TAKE 1 CAPSULE (0.4 MG) BY MOUTH ONCE PER DAY. 90 capsule 1 10/20/19 25 Active omeprazole (PriLOSEC) [address] capsule TAKE 1 CAPSULE BY MOUTH EVERY DAY BEFORE A MEAL 90 capsule 1 12/06/19 25 Active omega-3 1000 MG capsule capsuleIndicatio ns:Hypertriglyce ridemia TAKE 1 CAPSULE BY MOUTH 2 TIMES DAILY. 180 capsule 1 02/26/20 25 Active omega-3, maximum EPA, (fish oil) 1000 MG capsuleIndicatio ns:Hypertriglyce ridemia Take 1 capsule (1,000 mg) by mouth 2 times daily. 180 capsule 1 12/13/19 24 025 Discontinued Active Problems Problem Noted Date Diagnosed Date Screening for lung cancer 07/13/2024 Overview (07/13/2024): order sent 07/13/24 Screening for malignant neoplasm of colon 2024 Overview (07/13/2024): 03/[address] Kemp, recommended colonoscopy within 3 to 5 years. Cocaine use disorder 03/10/2023 Sialadenitis 07/09/2022 Retinal hemorrhage 12/23/2017 Gout 11/20/2013 Mixed anxiety and depressive disorder 10/25/2012 Genital herpes simplex 10/25/2012 Erectile dysfunction 10/25/2012 Hypercholesterolemia 01/27/2012 Hypertension 01/27/2012 Tobacco dependence syndrome 01/27/2012 Alcohol abuse 01/27/2012 Backache 01/27/2012 Encounters Date Type Department Care Team Description 03/04/2025 2:30 PM EDT Office Visit [facility]ULT [facility] [address] [place] [address] Torsten Stephenson DMD Dental caries (Primary Dx) 02/25/2025 Telephone [facility] [address] [place] [phone] Christina Adamson ANP Med Refill 02/25/2025 Refill [facility] [address] [place] [address] Christina Adamson ANP Hypertriglyceridemia 02/06/2025 Telephone [facility] [address] [place] [address] Torsten Stephenson DMD shinto appt 02/04/2025 2:30 PM EDT Office Visit [facility] [address] [place] [address] Torsten Stephenson DMD Dental caries (Primary Dx) 01/14/2025 Telephone [facility] [address] [place] [address] Torsten Stephenson DMD rs no show appt from Last 3 Months Immunizations Immunization Administration Dates Next Due Hep B, adult 03/15/2012,07/25/2008 Influenza injectable quadriv alent IIV4 with preservative 05/06/2016,06/23/2015 Influenza injectable quadriv alent preservative free 05/27/2023,08/02/2022,06/23/2021,2019,07/05/2019,04/13/2018,04/25/2017 Influenza, IIV3, injectable 05/21/2014, 1 Influenza, Split (incl. tana fied surface antigen) 07/18/2013,03/15/2012 Influenza, seasonal, injecta ble, preservative free 06/01/2024 Moderna Covid-19 Vaccine 12+ 06/23/2021,12/19/19 21,11/07/2020 Moderna Covid-19 Vaccine 6+ Bivalent 08/02/2022 Pfizer Covid-19 Vaccine 12+ 06/01/2024, 3 Pneumococcal Conjugate PCV 20 05/27/2023 Td (adult), 5 Lf tetanus tox oid, preservative free, adsorbed 11/09/2015 Tdap 03/15/2012 Social History Tobacco Use Types Packs/Day Years Used Date Smoking Tobacco: Every Day Cigarettes Passive Smoke Exposure: Never Smokeless Tobacco: Never Tobacco Cessation:Ready to Q uit: No; Counseling Given: Yes Alcohol Use Standard Drinks/Week Comments Yes 8 [...] is your housing situation today? I have sulemankeely mcdaniel 05/16/[address] you [...] Sign Reading Time Taken Comments Blood Pressure 120/80 03/04/2025 2:47 PM EDT Pulse 91 09/12/2024 3:46 PM EST Temperature 36.7 C (98 F) 09/12/2024 3:46 PM EST Respiratory Rate 17 09/12/2024 3:46 PM EST Oxygen Saturation 96% 09/12/2024 3:46 PM EST Inhaled Oxygen Concentration - - Weight 85.8 kg (189 lb 3.2 oz) 09/12/2024 3:46 P M EST Height 180.3 cm (5' 11 ) 12/13/2023 9:18 AM EDT Body Mass Index 26.39 12/13/2023 9:18 AM EDT Plan of Treatment Upcoming Encounters Date Type Department Care Team (Late st Contact Info) Description 03/28/2025 2:30 PM EDT Office Visit [facility] [address] [place] [address] Torsten Stephenson DMD [address] [place] [address] 05/08/2025 3:00 PM EDT Office Visit [facility] [address] [place] [address] Kit Lopez Health Maintenance Due Date Last Done Comments CT Colonography 1966 FIT DNA/Cologuard 1966 FIT 1966 FOBT 1966 Sigmoidoscopy 1966 Disability Screening 1966 Hepatitis B Vaccines (3 of 3 - 19+ 3-dose series) 05/10/2012 03/15/2012, 07/25/2008 Zoster Vaccines (1 of 2) 2016 SDOH Screening 12/01/2024 12/02/2023 Influenza Vaccine (#1) 2025 , 05/27/2023, 08/02/2022, Additional history exists Colonoscopy 03/12/2025 08/01/2020 Colorectal Cancer Screening 03/12/2025 Dental Oral Exam 05/03/2025 10/31/2024, 11/28/2023 Dental Prophylaxis 05/03/2025 10/31/2024, 11/28/2023 Alcohol/Substance Use Screening 06/01/2025 06/01/2024 Depression Screening 06/01/2025 06/01/2024, 06/01/20 Dental X-Ray: Bitewings 11/01/2025 11/01/19, 11/28/2023, 07/28/2023 DTaP/Tdap/Td Vaccines (3 - Td or Tdap) 11/08/2025 11/09/2015, 03/15/2012 Tobacco Screening 03/04/2026 03/04/2025 Lipid Panel 12/01/2026 12/01/2021 Dental X-Ray: Full Mouth 11/02/2027 10/31/2024 RSV Patients and Patients Aged 60 years [...] topic Meningococcal Vaccine Aged Out No mari mathtew eligible based on patient's age to complete this topic RSV under 20 months Aged Out No longe r eligible based on patient's age to complete this topic Rotavirus Vaccines Aged Out No longer eligible based on patient's age to complete this topic Procedures Procedure Name Priority Date/Time Associated Diagnosis Comments HEMOGLOBIN + HEMATOCRIT Routine 03/20/2025 3:09 PM EDT Shortness of breath VALPROIC ACID Routine 03/20/2025 3:09 PM EDT Mixed anxiety and depressive disorder PSA, TOTAL Routine 03/20/2025 3:09 PM EDT Prostate cancer screening CASE PRESENTATION, DETAILED AND EXTENSIVE TREATMENT PLANNING Routine 03/04/2025 2:30 PM EDT Dental caries 9 F(V) RESIN-BASED COMPOSITE - 1 SURF, ANTERIOR Routine 03/04/2025 2:30 PM EDT Dental caries CASE PRESENTATION, DETAILED AND EXTENSIVE TREATMENT PLANNING Routine 02/04/2025 2:30 PM EDT Dental caries 13 DO RESIN-BASED COMPOSITE - 2 SURF, POSTERIOR Routine 02/04/2025 2:30 PM EDT Dental caries PROPHYLAXIS - ADULT Routine 10/31/2024 2 :00 PM EDT Dental caries Periodontal disease INTRAORAL - COMPLETE SERIES OF RADIOGRAPHIC IMAGES Routine 10/31/2024 2:00 PM EDT Dental caries Periodontal disease PERIODIC ORAL EVALUATION - ESTABLISHED PATIENT Routine 10/31/2024 2:00 PM EDT Dental caries Periodontal disease HEPATITIS C AB W/REFL TO HCV RNA, QN, PCR Routine 12/13/2023 10:15 AM EDT Screening examination for STI HIV 1/2 ANTIGEN/ANTIBODY, FOURTH GENERATION W/RFL Routine 12/13/2023 10:15 AM EDT Screening examination for STI LIPID PANEL, STANDARD Routine 12/01/2021 11:20 AM EDT HM COLONOSCOPY Routine 08/01/2020 from Last 3 Months or Most Recently Relevant to Health Maintenance Results * (ABNORMAL) Hemoglobin and Hematocrit (03/20/2025 3:09 PM EDT) Hemoglobin 12.5(L) 14.0 - 18.0 g/dl [facility] Hematocrit 37.2(L) 42.0 - 52.0 % [facility] Blood Venous blood specimen / Unknown 03/20/2025 3:09 PM EDT 03/20/2025 3:59 PM EDT Christina Adamson ANP LAB BLOOD ORDERABLES Final Resul t Performing Organization Address [facility] Co de Phone Number [facility] [address] [place] [phone] * PSA,Total (03/20/2025 3:09 PM EDT) Prostate Specific Antigen 0.52 <0.05 - 4.0 ng/mL [facility] Comment:PSA methodology: Tari Núñezty i ChemiluminescentMicroparticle Immunoassay (CMIA) Blood Venous blood specimen / Unknown 03/20/2025 3:09 PM EDT 03/20/2025 3:59 PM EDT us Christina Adamson [facility] LAB BLOOD ORDERABLES Final Resul t Performing Organization Address [facility] Co de Phone Number [facility] [address] [place] [phone] * Valproic Acid Total (03/20/2025 3:09 PM EDT) Valproate 66.9 50.0 - 100.0 mcg/mL [facility] Blood Venous blood specimen / Unknown 03/20/2025 3:09 PM EDT 03/20/2025 3:59 PM EDT Christina Adamson [facility] LAB BLOOD ORDERABLES Final Resul t Performing Organization Address City/[facility]/ZIP Co de Phone Number [facility] [address] [place] [phone] * Hepatitis C Antibody with Reflex to HCV, RNA, Quantitative, Real-Time PCR (12/13/2023 10:15 AM EDT) Pathologist [facility] Hepatitis C Antibody Nonreactive Nonreactive [facility] Comment:Antibodies to HCV no t detected; does not exclude early acuteHCV infection. Blood Venous blood specimen / Unknown 12/13/2023 10:15 AM EDT 12/13/2023 11:48 AM EDT us Christina KEE LAB BLOOD ORDERABLES Final Resul t Performing Organization Address [facility] Co de Phone Number [facility] [address] [place] [phone] * HIV-1/2 Antigen and Antibodies, Fourth Generation, with Reflexes (12/13/2023 10:15 AM EDT) Pathologist [facility] HIV AB/AG Nonreactive Nonreactive [facility] Comment:HIV-1 p24 Ag and/or HIV-1/HIV-2 Ab not detected.A test result that is nonreactive does not exclude thepossibility of exposure to or infection with HIV-1 and/orHIV-2. Nonreactive results in this assay for individualswith prior exposure to HIV-1 and/or HIV-2 may be due toantigen and antibody levels that are below the limit ofdetection of this assay.The [facility] HIV Ag/Ab Combo assay result andsupplemental assay results should be interpreted inconjunction with the patient's clinical presentation,history and other laboratory results. If the results areinconsistent with clinical evidence, additional testing issuggested to confirm the result. Blood Venous blood specimen / Unknown 12/13/2023 10:15 AM EDT 12/13/2023 11:48 AM EDT us Christina Adamson ANP LAB BLOOD ORDERABLES Final Resul t Performing Organization Address City/[facility]/ZIP Co de Phone Number [facility] [address] [place] [phone] [phone] * (ABNORMAL) LIPID PANEL, STANDARD (12/01/2021 11:20 AM EDT) Chol/HDLC Ratio 4.3 <5.0 (calc) [facility] Cholesterol, Total 182 <200 mg/dL [facility] HDL Cholesterol 42 > OR = 40 mg/dL [facility] LDL Cholesterol 113(H) mg/dL (calc) [facility] Comment: Reference range: <100 Desirable range <100 mg/dL for primary prevention; <70 mg/dL for patients with CHD or diabetic patients with > or = 2 CHD risk factors. LDL-C is now calculated using the Maite calculation, which is a validated novel method providing better accuracy than the Friedewald equation in the estimation of LDL-C. Rojelio LEBRON et al. TAYLOR. 2013;310(19): 9396-3591 (http://education.[employer]/faq/LKW768) Non-HDL Cholesterol 140(H) <130 mg/dL (calc) [facility] Comment: For patients with diabetes plus 1 major ASCVD risk factor, treating to a non-HDL-C goal of <100 mg/dL (LDL-C of <70 mg/dL) is considered a therapeutic option. Triglycerides 157(H) <150 mg/dL [facility] 12/01/2021 11:2 0 AM EDT [facility] BLOOD ORDERABLES Final Resul t [facility] [address] [place] [address] * (ABNORMAL) Colonoscopy (08/01/2020) Colonoscopy Abnormal(A ) Normal Historical Provider MD HEALTH MAINTENANCE Final Result from Last 3 Months or Most Recently Relevant to Health Maintenance Insurance [facility] < 65 DENTAL [facility] * Guarantor: Silvana Guerra Account Type Relation to Patient Date of Phone Billing Address Personal/Family Self [phone] [phone] Care Teams Community Associate Relationship Specialty Start Date End Date Christina Adamson ANP [address] [place] [phone] PCP - General Family Medicine 03/10/20
--- OUTSIDE RECORDS SUMMARY | 2025-03-20 18:10 | XMS_ITS | Encounter Summary ---
Author Organization [employer] Address [address] [facility] [address] 7t [place] [address] Care Team Providers Care Flarer Name Role Phone Snow Christina KEE Primary Care Provider [phone] Encounter Details Date Type Department Care Team (Late Contact Info) Description 01/28/2023 Orders Only [facility] [address] [place], [place] [phone] Juany Cabral LPN Social History Tobacco Use [...] 2:30 PM EDT Office Visit [facility] ADULT [facility] [address] [place] [address] Torsten Stephenson, AISLINN [address] [place] [address] 05/08/2025 3:00 PM EDT Office Visit [facility] ADULT [facility] [address] [place] [address] Kit Lopez documented as of this encounter Visit Diagnoses Not on filedocumented in this encounter Care Teams Flarer Relationship Specialty Start Date End Date Christina Adamson ANP [address] [place] [address] PCP - General Family Medicine 03/10/20 documented as of this encounter
--- OUTSIDE RECORDS SUMMARY | 2025-03-20 18:10 | XMS_ITS | Encounter Summary ---
Author Organization [facility] Address [address] [facility] 7t [place] [address] Care Team Providers Care Towboat Engineer Name Role Phone Christina Adamson Primary Care Provider [phone] Encounter Details Date Type Department Care Team (Latest Contact Info) Description 05/21/2021 Abstract [facility] CONVERSIONS Dental, Provider, DDS Social History Tobacco [...] Description 03/28/2025 2:30 PM EDT Office Visit [facility] ADULT DENTAL [address] [place] [address] Torsten Stephenson DMD [address] [place] [address] 05/08/2025 3:00 PM EDT Office Visit [facility] ADULT DENTAL [address] [place] [address] Kit Lopez documented as of this encounter Visit Diagnoses Not on filedocumented in this encounter Care Teams Towboat Engineer Relationship Specialty Start Date End Date Christina Adamson ANP [address] [place] [phone] PCP - General Family Medicine 03/10/20 documented as of this encounter
--- OUTSIDE RECORDS SUMMARY | 2025-03-20 18:10 | XMS_ITS | Encounter Summary ---
Author Organization [employer] Address [address] [facility] 7t [place] [address] Care Team Providers Care Orthopedic Nurse Name Role Phone Snow Christina KEE Primary Care Provider [phone] Reason for Visit * Reason Comments Med Refill Encounter Details Date Type Department Care Team (Late st Contact Info) Description 09/08/2022 Refill [facility]INE [address] [place], [place] [phone] Robinson Rodriguez MD [address] [place] [address] Bipolar affective disorder, current episode mixed, current episode severity unspecified (CMS/[facility]) Social History Tobacco Use Types Packs/Day Years [...] Description 03/28/2025 2:30 PM EDT Office Visit [facility] ADULT [facility] [address] [place], [place] [phone] Torsten Stephenson, AISLINN [address] [place] [address] 05/08/2025 3:00 PM EDT Office Visit [facility]ULT [facility] [address] [place] [address] Kit Lopez documented as of this encounter Visit Diagnoses Diagnosis Bipolar affective disorder, current episode mixed, current episode severity unspecified (CMS/[facility]) documented in this encounter Care Teams Orthopedic Nurse Relationship Specialty Start Date End Date Christina Adamson ANP [address] [place] [phone] PCP - General Family Medicine 03/10/20 documented as of this encounter
--- OUTSIDE RECORDS SUMMARY | 2025-03-20 18:10 | XMS_ITS | Encounter Summary ---
Author Organization [employer] Address [address] [facility] [address] [place] [address] Care Team Providers Care Fur Weigher Name Role Phone Christina Adamson Primary Care Provider Reason for Visit * Reason Comments Med Refill Encounter Details Date Type Department Care Team ([facility] Contact Info) Description 10/26/2022 Refill [facility] [address] [place], [place] [phone] Christina Adamson ANP [address] [place] [address] Bipolar affective disorder, current episode mixed, current [...] Upcoming Encounters Date Type Department Care Team ([facility] Contact Info) Description 03/28/2025 2:30 PM EDT Office Visit [facility]ULT [facility] [address] [place], [place] [phone] Torsten Stephenson, DMD [address] [place] [address] 05/08/2025 3:00 PM EDT Office Visit [facility] ADULT [facility] [address] [place] [address] Kit Lopez documented as of this encounter Visit Diagnoses Diagnosis Bipolar affective disorder, current episode mixed, current episode severity unspecified (CMS/[facility]) documented in this encounter Care Teams Fur Weigher Relationship Specialty Start Date End Date Christina Adamson ANP [address] [place] [phone] PCP - General Family Medicine 03/10/20 documented as of this encounter
== END 2025-03-20 15:03 | disposition home or self-care (01) ==
LOC: HO.HHCL 15:02
PROVIDERS: PCP Nurse Practitioner Primary Care; Visit Provider Registered Nurse Psychiatric/Mental Health
DX: Z12.5 Encounter for screening for malignant neoplasm of prostate (principal); R06.02 Shortness of breath; F41.8 Other specified anxiety disorders; Z79.899 Other long term (current) drug therapy
CPT/HCPCS: 36415; 80053; 80164; 82248; 84153; 84443; 85014; 85018; 85025

== ENCOUNTER 2025-05-13 15:44 | Outpatient (REF) | payer OTHER, SELFPAY ==
--- OUTSIDE RECORDS SUMMARY | 2025-05-08 14:00 | XMS_ITS | Encounter Summary ---
Author Organization [employer] Address [address] [place] [address] Care Team Providers Care Assembler Engine Name Role Phone Christina Adamson Primary Care Provider [phone] Reason for Visit * Reason Comments Routine Cleaning Dental Exam Encounter Details Date Type Department Care Team ([facility] st Contact Info) Description 05/08/2025 3:00 PM EDT Office Visit [facility] [address] [place] [address] Kit Lopez Dental calculus (Primary Dx); Dental caries; Periodontal disease Social History Tobacco Use Types Packs/Day Years [...] Sign Reading Time Taken Comments Blood Pressure 128/76 05/08/2025 2:48 PM EDT Pulse 75 05/08/2025 2:48 PM EDT Temperature - - Respiratory Rate - - Oxygen Saturation - - Inhaled Oxygen Concentration - - Weight - - Height - - Body Mass Index - - documented in this encounter Progress Notes * Kit Lopez - 05/08/2025 3:00 PM EDT Patient ID: Ruben Guerra is a 59 y.o. male. Time Out: Timeout Date: 05/08/25, Timeout Time: 1449 Location: [facility] Tooth: Maxilla and Mandible Procedure: Exam and Prophylaxis Verified the above with patient, orthopaedic physician assistant, and provider. Confirmed via patient's chart, intraorally and by radiographs. Cover Assembler: not applicable Medical Hx: Vitals: Blood pressure 128/76, pulse 75. Medications, Med Hx reviewed with patient and updated in chart. Treatment Provided Dental procedures in this visit D1110 - PROPHYLAXIS - ADULT (Completed) Service provider: Kit Lopez Billing provider: Torsten Stephenson DMD [id number] - CASE PRESENTATION, DETAILED AND EXTENSIVE TREATMENT PLANNING (Completed) Service provider: Kit Lopez Billing provider: Torsten Stephenson DMD [id number] - ORAL HYGIENE INSTRUCTIONS (Completed) Service provider: Kit Lopez Billing provider: Torsten Stephenson DMD Instruments Used: Ultrasonic Scalers and Prophy angle Fluoride: N/A Oral Cancer Screening: No lesions Head/Neck Exam: No Lesions Calculus: Moderate and Generalized Plaque: Moderate and Generalized Stain: Moderate and Generalized Bleeding: Moderate and Generalized Gingiva: Bleeding on probing and Erythematous OH: Poor Perio Chart: Not Completed Oral hygiene instructions provided to patient including brushing technique and flossing. Dental exam done by . Recommendations: Juliette two times daily, modified riddle technique, Floss daily Recall Frequency: 6 mo NV: elysia Hygienist: Kit Lopez RDH Patient was diagnosed with periodontal disease. Patients periodontal disease risk factors are as follows: Tobacco use, Irregular dental care/oral health low priority, Age 40 or older, Chronic gingivitis/25% or more BOP sites, Poor plaque control, Calculus, Probe depths >3mm, and Radiographic loss of crestal bone. Calculus is present Subgingivally and Generalized with generalized bone loss thatcan be seen radiographically. As noted in the periodontal chart, bleeding on probing is Generalizedand Moderate. Exudate present Not Present. MPatient has generalized probing depths that range from 4 to 5 mm. Patient presents with Generalized recession ranging from 1 to 2 mm. Gingiva is noted to be Inflamed and Erythematous . Pre Authorization requested for SRP. SRP treatment needed to promote gingival health, arrest disease progression of periodontal disease and prevent tooth loss. * Torsten Stephenson DMD - 05/08/2025 3:00 PM EDT Dental procedures in this visit D1110 - PROPHYLAXIS - ADULT (Completed) Service provider: Kit Lopez Billing provider: Torsten Stephenson DMD [id number] - CASE PRESENTATION, DETAILED AND EXTENSIVE TREATMENT PLANNING (Completed) Service provider: Kit Lopez Billing provider: Torsten Stephenson DMD D1330 - ORAL HYGIENE INSTRUCTIONS (Completed) Service provider: Kit Lopez Billing provider: Torsten Stephenson DMD D0120 - PERIODIC ORAL EVALUATION - ESTABLISHED PATIENT (Completed) Service provider: Torsten Stephenson DMD Billing provider: Torsten Stephenson DMD Patient ID: Ruben Guerra is a 59 y.o. male. Time Out: Timeout Date: 05/08/25, Timeout Time: 1449 Location: [facility] Tooth: all Procedure: Exam Verified the above with patient, orthopaedic physician assistant, and provider. Confirmed via patient's chart, intraorally and by radiographs. Cover Assembler: not applicable Chief Complaint Patient presents with Routine Cleaning Dental Exam Medical Hx: Vitals: Blood pressure 128/76, pulse 75. Medical History[1] Medications: Encounter Medications[2] Objective HPI: pt doing well following EXT #2, no pain or concerns elsewhere Soft Tissue Exam No findings documented this visit Head and Neck Exam: all structures examined Details: no swellings, ulcerations or lymphadenopathies OCS: negative Dental Exam Generalized subgingival calculus present, recommend SRPs Previously recommended restorations remain unchanged - #3,4 Note #12 existing religious has dislodged - planned for new one #29 with recurrent decay, advise new crown Advise partials once direct/indirect restos completed Informed pt of findings, treatment options and recommendations. Pt expressed understanding. All questions answered Radiographic Interpretation: Associated radiographs for today's visit were reviewed and finding(s) were discussed with the patient. Findings include: see above Hard Tissue Exam: Decay noted - see charting and treatment plan Perio Dx: Generalized Chronic Periodontitis Stage: I Grade: B Reference tooth chart for additional findings. Oral Cancer Risk: Moderate Risk Oral Hygiene Instructions: Juliette two times daily, modified riddle technique, Floss daily, Electric toothbrush, Soft bristle toothbrush, Juliette Tongue, Anti- sensitivity toothpaste Caries Risk Assessment: High- two or more risk factors Assessment/Plan Restos #29 crown Max and Dionicio cast partials Maintenance and recare Patient tolerated procedure well, all questions answered and expressed understanding. Dismissed in good condition. NV: #3,4,12 restos Next Hyg Visit: R side SRPs Ground Source Heat Pump Technician: Kit Lopez Dentist: Torsten Stephenson DMD [1] Past Medical History: Diagnosis Date Anxiety Depression High cholesterol Hypertension Periodontal disease [2] Outpatient Encounter Medications as of 05/08/2025 Medication Sig Dispense Refill acetaminophen (Tylenol 8 Hour) 650 MG ER tablet TAKE 1 TABLET BY MOUTH EVERY 8 HOURS IF NEEDED FOR MILD PAIN. DO NOT CRUSH, CHEW, OR SPLIT. 30 tablet 0 allopurinol (Zyloprim) 300 MG tablet Take 2 tablets (600 mg) by mouth Once per day. 180 tablet 3 amoxicillin (Amoxil) 500 MG capsule TAKE 1 CAPSULE (500 MG) BY MOUTH EVERY 8 HOURS FOR 7 DAYS 21 capsule 0 atorvastatin (Lipitor) 10 MG tablet TAKE 1 [...] THREE TIMES A DAY NEEDED 90capsule 3 ibuprofen 600 MG tablet TAKE 1 TABLET BY MOUTH 3 TIMES DAILY. 15 tablet 0 lisinopril 20 MG tablet TAKE 1 TABLET BY MOUTH EVERY DAY IN THE MORNING 90 tablet 3 loratadine (Claritin) 10 MG tablet TAKE 1 TABLET BY MOUTH EVERY DAY NEEDED FOR ALLERGIES 90 tablet 3 Multiple Vitamins-Minerals ([employer] Spectravite Adults) tablet TAKE 1 TABLET BY MOUTH EVERY DAY WITH FOOD 90 tablet 3 OLANZapine (ZyPREXA) 20 MG tablet TAKE 1 TABLET BY MOUTH AT BEDTIME 90 tablet 0 omega-3 1000 MG capsule capsule TAKE 1 CAPSULE BY MOUTH 2 TIMES DAILY. 180 capsule 1 omeprazole (PriLOSEC) 20 MG [...] Spit. Do not rinse. 112 g 2 tamsulosin (Flomax) 0.4 MG 24 hr capsule TAKE 1 CAPSULE (0.4 MG) BY MOUTH ONCE PER DAY. 90 capsule 1 thiamine (Vitamin B-1) 100 MG tablet TAKE 1 TABLET BY MOUTH EVERY DAY FOR B VITAMIN 90 tablet 3 valACYclovir (Valtrex) 500 MG tablet TAKE 1 TABLET BY MOUTH EVERY DAY 90 tablet 3 [DISCONTINUED] acetaminophen (Tylenol 8 Hour) 650 MG ER tablet Take 1 tablet (650 mg) by mouth every 8 (eight) hours if needed for mild pain. Do not crush, chew, or split. 30 tablet 0 [DISCONTINUED] amoxicillin (Amoxil) 500 MG capsule Take 1 capsule (500 mg) by mouth every 8 (eight)hours for 7 days. 21 capsule 0 [DISCONTINUED] ibuprofen 600 MG tablet Take 1 tablet (600 mg) by mouth 3 times daily. 15 tablet 0 [DISCONTINUED] omega-3 1000 MG capsule capsule TAKE 1 CAPSULE BY MOUTH 2 TIMES DAILY. 180 capsule 1 No facility-administered encounter medications on file as of 05/08/2025. documented in this encounter Plan of Treatment Upcoming Encounters Date Type Department Care Team (Late st Contact Info) Description 05/14/2025 3:00 PM EST Office Visit [facility] [address] [place] [address] Amando Allan, DDS [address] [place] [address] 05/29/2025 3:30 PM EST Office Visit [facility] [address] [place] [address] Christina Adamson ANP [address] [place] [address] Scheduled Orders Name Type Priority Associated Diagnoses Orde r Schedule UL UL PERIODONTAL SCALING AND ROOT PLANING - 1 TO 3 TEETH PER QUADRANT Dental Routine 1 Occurrences starting 05/08/2025 LL LL PERIODONTAL SCALING AND ROOT PLANING - 1 TO 3 TEETH PER QUADRANT Dental Routine 1 Occurrences starting 05/08/2025 UR UR PERIODONTAL SCALING AND ROOT PLANING - 1 TO 3 TEETH PER QUADRANT Dental Routine 1 Occurrences starting 05/08/2025 LR LR PERIODONTAL SCALING AND ROOT PLANING - 1 TO 3 TEETH PER QUADRANT Dental Routine 1 Occurrences starting 05/08/2025 2,14,15 2,14,15 MAXILLARY PARTIAL DENTURE - CAST METAL FRAMEWORK WITH RESIN DENTURE BASES (INCLUDING RETENTIVE/CLASPING MATERIALS, RESTS AND TEETH) Dental Routine [address] arting 05/08/2025 12 B(V) 12 B(V) RESIN-BASED COMPOSITE - 1 SURF, POSTERIOR Dental Routine [address] arting 05/08/2025 30,31 30,31 MANDIBULAR PARTIAL DENTURE - CAST METAL FRAMEWORK WITH RESIN DENTURE BASES (INCLUDING RETENTIVE/CLASPING MATERIALS, RESTS AND TEETH) Dental Routine [address] arting 05/08/2025 CROWN PREP Dental Routine 1 Occurrences starting 05/09/2025 DENTURE IMPRESSION Dental Routine 1 Occu rrences starting 05/09/2025 BITE REGISTRATION Dental Routine 1 Occur rences starting 05/09/2025 WAX TRY IN Dental Routine 1 Occurrences starting 05/09/2025 documented as of this encounter Procedures Procedure Name Priority Date/Time Associated Diagnosis Comments PROPHYLAXIS - ADULT Routine 05/08/2025 3 :00 PM EDT Dental caries Periodontal disease PERIODIC ORAL EVALUATION - ESTABLISHED PATIENT Routine 05/08/2025 3:00 PM EDT Dental caries Periodontal disease ORAL HYGIENE INSTRUCTIONS Routine 05/08/2025 3:00 PM EDT Dental caries Periodontal disease CASE PRESENTATION, DETAILED AND EXTENSIVE TREATMENT PLANNING Routine 05/08/2025 3:00 PM EDT Dental caries Periodontal disease documented in this encounter Visit Diagnoses Diagnosis Dental calculus- Primary Accretions on teeth Dental caries Unspecified dental caries Periodontal disease Unspecified gingival and periodontal disease documented in this encounter Additional Health Concerns Assessment Noted Time PHQ-9 Depression Total Score: 5 06/01/20 24 3:43 PM EST documented as of this encounter Care Teams Assembler Engine Relationship Specialty Start Date End Date Christina Adamson ANP [address] [place] [id number] PCP - General Family Medicine 03/10/20 documented as of this encounter
--- OUTSIDE RECORDS SUMMARY | 2025-05-13 15:20 | XMS_ITS | Encounter Summary ---
Author Organization [employer] Address [address] [place] [address] Care Team Providers Care Aviation Electronics Technician Name Role Phone Christina Adamson Primary Care Provider [phone] Encounter Details Date Type Department Care Team ([facility] st Contact Info) Description 05/13/2025 3:20 PM EST Office Visit [facility] [address] [place] [phone] Aletha Kitchen MD [address] [place], [place] [phone] Rash (Primary Dx); Primary hypertension Social History Tobacco Use Types Packs/Day Years [...] Sign Reading Time Taken Comments Blood Pressure 160/95 05/13/2025 3:45 PM EST Pulse 84 05/13/2025 3:28 PM EST Temperature 36.9 C (98.5 F) 05/13/2025 3:28 PM EST Respiratory Rate 18 05/13/2025 3:28 PM EST Oxygen Saturation 98% 05/13/2025 3:28 PM EST Inhaled Oxygen Concentration - - Weight 86.8 kg (191 lb 6.4 oz) 05/13/2025 3:28 P M EST Height 180.3 cm (5' 11 ) 05/13/2025 3:28 PM EST Body Mass Index 26.69 05/13/2025 3:28 PM EST documented in this encounter Progress Notes * Aletha Kitchen MD - 05/13/2025 3:20 PM EST SUBJECTIVE: Silvana Guerra is a 59 y.o. year old male who presents for [facility]. Denies recent illness, injury, or hospitalization. Acute Concerns: Rash and Itching Developed an itchy rash affecting the legs, arms, and back with the back being the most itchy area.Itching started recently and has worsened, especially on the legs and back. Denies fever. No prior history of similar rash. Recently took amoxicillin (dental infection). No other new medications started, he stopped ALL his meds yesterday, including lisinopril. Reports history of genital herpes. Denies recent outbreaks. He's currently taking prophylaxis Social History Social History Narrative Not on file Problem List[1] Family History[2] Review of Systems Constitutional: Negative for fever. HENT: Negative for congestion, ear pain, rhinorrhea and sore throat. Eyes: Negative for pain and discharge. Respiratory: Negative for cough and shortness of breath. Cardiovascular: Negative for chest pain. Gastrointestinal: Negative for abdominal pain, constipation, diarrhea and nausea. Endocrine: Negative for polydipsia. Genitourinary: Negative for dysuria and frequency. Musculoskeletal: Negative for arthralgias, back pain and neck pain. Skin: Positive for rash. Neurological: Negative for dizziness, numbness and headaches. Psychiatric/Behavioral: Negative for agitation. OBJECTIVE: Vitals: 05/13/25 1528 05/13/25 1545 BP: (!) 165/101 (!) 160/95 BP Location: Left arm Right arm Patient Position: Sitting Sitting BP Cuff Size: Adult Adult Pulse: 84 Resp: 18 Temp: 98.5 ??F (36.9 ??C) TempSrc: Temporal SpO2: 98% Weight: 191 lb 6.4 oz (86.8 kg) Height: 5' 11 (1.803 m) Physical Exam Constitutional: Appearance: Normal appearance. HENT: Right Ear: Tympanic membrane and ear canal normal. Left Ear: Tympanic membrane and ear canal normal. Mouth/Throat: Mouth: Mucous membranes are moist. Pharynx: No oropharyngeal exudate or posterior oropharyngeal erythema. Eyes: Pupils: Pupils are equal, round, and reactive to light. Cardiovascular: Rate and Rhythm: Normal rate and regular rhythm. Heart sounds: No murmur heard. Pulmonary: Breath sounds: Normal breath sounds. No wheezing. Abdominal: General: Bowel sounds are normal. Palpations: Abdomen is soft. Tenderness: There is no abdominal tenderness. Musculoskeletal: General: No tenderness. Normal range of motion. Cervical back: Normal range of motion. No tenderness. Skin: General: Skin is warm. Findings: Rash present. Rash is macular (micropapular, red, scattered thorught trunk, upper and LE,not on palms or soles). Comments: Skin is dry Neurological: General: No focal deficit present. Mental Status: He is alert and oriented to person, place, and time. Psychiatric: Mood and Affect: Mood normal. Problem List Items Addressed This Visit Rash - Primary - Rash seems like a petechial rash, less likely viral exanthema vs med allergy. His MMR titers are POS/Immune 3y ago. - Prescribed medrol pack for 7 days. - Advised use of moisturizers (Cetaphil, Eucerin, CeraVe) for pruritus and dryness. - Ordered labs. - Recommended follow-up with primary care provider in 1-2 weeks. - Instructed to restart essential medications (Seroquel, hydroxyzine, lisinopril, Valtrex, omeprazole) and to reintroduce other medications one by one after rash resolves. - Advised to inform dentist of possible amoxicillin allergy and to avoid further amoxicillin unlessspecifically indicated. Will call if blood work reveals abnormalities. Relevant Medications methylPREDNISolone (Medrol Dospak) 4 MG tablets Other Relevant Orders Hepatitis Panel, General HIV-1/2 Antigen and Antibodies, Fourth Generation, with Reflexes Syphilis Screen C-reactive Protein Sed Rate by Modified Westergren Urinalysis, Complete, with Reflex to Culture CBC auto differential ALETHA Screen,IFA, with Reflex to Titer and Pattern Hypertension Uncontrolled and has been off medication for at least 2 days. Advised to restart lisinopril tomorrow, to go to ED if he develops chest pain, JAVIER, headache, weakness. Follow-up with PCP in 1 to 2 weeks to reassess BP control This note was drafted using Ambient (AI) technology. The patient/patient's guardian has been informed and has consented to the use of this technology: Yes Follow Up: Medications Ordered Prior to Encounter[3] [1] Patient Active Problem List Diagnosis Sialadenitis Gout Hypercholesterolemia Hypertension Mixed anxiety and depressive disorder Tobacco dependence syndrome Retinal hemorrhage Genital herpes simplex Erectile dysfunction Alcohol abuse Backache Cocaine use disorder (CMS/HCC) (HCC) Screening for lung cancer Screening for malignant neoplasm of colon Rash [2] No family history on file. [3] Current Outpatient Medications on File Prior to Visit Medication Sig Dispense Refill acetaminophen (Tylenol 8 Hour) 650 MG ER tablet TAKE 1 TABLET BY MOUTH EVERY 8 HOURS IF NEEDED FOR MILD PAIN. DO NOT CRUSH, CHEW, OR SPLIT. 30 tablet 0 allopurinol (Zyloprim) 300 MG tablet Take 2 tablets (600 mg) by mouth Once per day. 180 tablet 3 atorvastatin (Lipitor) 10 MG tablet TAKE 1 TABLET BY MOUTH EVERYDAY AT BEDTIME 90 tablet 3 cloNIDine (Catapres) 0.1 MG tablet TAKE 1 TABLET BY MOUTH TWICE A DAY 180 tablet 3 docusate sodium (Colace) 100 MG capsule TAKE [...] EVERY DAY WITH FOOD 90 tablet 3 omega-3 1000 MG capsule capsule TAKE 1 [...] MOUTH EVERY DAY 90 tablet 3 [DISCONTINUED] amoxicillin (Amoxil) 500 MG capsule TAKE 1 CAPSULE (500 MG) BY MOUTH EVERY 8 HOURS FOR 7 DAYS 21 capsule 0 [DISCONTINUED] divalproex (Depakote) 500 MG EC tablet take 2 tablet by oral route twice daily 180 tablet 0 [DISCONTINUED] OLANZapine (ZyPREXA) 20 MG tablet TAKE 1 TABLET BY MOUTH AT BEDTIME 90 tablet 0 No current facility-administered medications on file prior to visit. documented in this encounter Miscellaneous Notes * Assessment & Plan Note - Aletha Kitchen MD - 05/13/2025 4:32 PM EST Associated Problem(s): Hypertension Uncontrolled and has been off medication for at least 2 days. Advised to restart lisinopril tomorrow, to go to ED if he develops chest pain, JAVIER, headache, weakness. Follow-up with PCP in 1 to 2 weeks to reassess BP control * Assessment & Plan Note - Aletha Kitchen MD - 05/13/2025 4:30 PM EST Associated Problem(s): Rash - Rash seems like a petechial rash, less likely viral exanthema vs med allergy. His MMR titers are POS/Immune 3y ago. - Prescribed medrol pack for 7 days. - Advised use of moisturizers (Cetaphil, Eucerin, CeraVe) for pruritus and dryness. - Ordered labs. - Recommended follow-up with primary care provider in 1-2 weeks. - Instructed to restart essential medications (Seroquel, hydroxyzine, lisinopril, Valtrex, omeprazole) and to reintroduce other medications one by one after rash resolves. - Advised to inform dentist of possible amoxicillin allergy and to avoid further amoxicillin unlessspecifically indicated. Will call if blood work reveals abnormalities. documented in this encounter Plan of Treatment Upcoming Encounters Date Type Department Care Team (Late st Contact Info) Description 05/14/2025 3:00 PM EST Office Visit [facility] ADULT DENTAL [address] [place] [address] Amando Allan, YUMIKO [address] [place] [address] 05/29/2025 3:30 PM EST Office Visit [facility] [address] [place] [address] Christina Adamson ANP [address] [place] [address] Scheduled Orders Name Type Priority Associated Diagnoses Orde r Schedule Hepatitis Panel, General Lab Routine Rash Expected: 05/13/2025 (Approximate), Expires: 05/13/2026 HIV-1/2 Antigen and Antibodies, Fourth Generation, with Reflexes Lab Routine Rash Expected: 05/13/2025 (Approximate), Expires: 05/13/2026 Syphilis Screen Lab Routine Rash Expected: 05/13/2025 (Approximate), Expires: 05/13/2026 C-reactive Protein Lab Routine Rash Expected: 05/13/2025 (Approximate), Expires: 05/13/2026 Sed Rate by Modified Westergren Lab Routine Rash Expected: 05/13/2025 (Approximate), Expires: 05/13/2026 Urinalysis, Complete, with Reflex to Culture Lab Routine Rash Expected: 05/13/2025 (Approximate), Expires: 05/13/2026 CBC auto differential Lab Routine Rash Expected: 05/13/2025 (Approximate), Expires: 05/13/2026 ALETHA Screen,IFA, with Reflex to Titer and Pattern Lab Routine Rash Expected: 05/13/2025 (Approximate), Expires: 05/13/2026 documented as of this encounter Visit Diagnoses Diagnosis Rash- Primary Rash and other nonspecific skin eruption Primary hypertension Unspecified essential hypertension documented in this encounter Additional Health Concerns Assessment Noted Time PHQ-9 Depression Total Score: 5 06/01/20 24 3:43 PM EST documented as of this encounter Care Teams Aviation Electronics Technician Relationship Specialty Start Date End Date Christina Adamson ANP [address] [place] [address] PCP - General Family Medicine 03/10/20 documented as of this encounter
--- OUTSIDE RECORDS SUMMARY | 2025-05-13 16:53 | XMS_ITS | Encounter Summary ---
Author Organization [facility] [facility] Address [address] [facility] [address] [place] [address] Care Team Providers Care Flanging Operator Name Role Phone Christina Adamson Primary Care Provider [phone] Encounter Details Date Type Department Care Team (Latest Contact Info) Description 05/21/2021 Abstract [facility] CONVERSIONS Dental, Provider, DDS Social History Tobacco [...] Description 05/14/2025 3:00 PM EST Office Visit [facility]ULT D[facility] [address] [place] [address] Amando Allan DDS [address] [place] [address] 05/29/2025 3:30 PM EST Office Visit [facility] MED[facility] [address] [place] [address] Christina Adamson ANP [address] [place] [address] documented as of this encounter Visit Diagnoses Not on filedocumented in this encounter Care Teams Flanging Operator Relationship Specialty Start Date End Date Christina Adamson ANP [address] [place] [address] PCP - General Family Medicine 03/10/20 documented as of this encounter
--- OUTSIDE RECORDS SUMMARY | 2025-05-13 16:53 | XMS_ITS | Clinical Summary ---
Author Organization [facility] Address [address] [place] [address] Care Team Providers Care R D Engineer Name Role Phone Unavailable Primary Care Provider [...] 2016 Zoster Vaccines (1 of 2) 2016 Depression Screening 07/11/2024 COVID-19 Vaccine (1 - 2023-2 5 season) 2025 Influenza Vaccine (#1) 2025 RSV Immunization Adult Patie nts (1 - 1-dose 75+ series) 2041 HIB Vaccines Aged Out No longer eligi [...]
--- OUTSIDE RECORDS SUMMARY | 2025-05-13 16:54 | XMS_ITS | Encounter Summary ---
Author Organization [employer] Address [address] [facility] [address] 7t [place] [address] Care Team Providers Care Cms Expert Name Role Phone Christina Adamson Primary Care Provider [phone] Reason for Visit * Reason Onset Date Comments yazidi appt 02/06/2025 Encounter Details Date Type Department Care Team ([facility] Contact Info) Description 02/06/2025 Telephone [facility] ADULT DENTAL [address] [place], [place] [phone] Torsten Stephenson, DMD 505 [place] [address] yazidi appt Social History Tobacco Use Types Packs/Day [...] on 02/04 and left without scheduling next yazidi visit. Patient would like his next appt. Explained to patient that appt is active requested however provider did not have immediate appt slots available and he will receive a call from office to schedule. Patient understoodDR documented in this encounter Plan of Treatment Upcoming Encounters Date Type Department Care Team (Late st Contact Info) Description 05/14/2025 3:00 PM EST Office Visit [facility] ADULT [facility]AL [address] [place] [address] Amando Allan DDS 230 [place] [address] 05/29/2025 3:30 PM EST Office Visit [facility] MEDICINE 230 [place] [address] Christina Adamson ANP 230 [place] [address] documented as of this encounter Visit Diagnoses Not on filedocumented in this encounter Additional Health Concerns Assessment Noted Time PHQ-9 Depression Total Score: 5 06/01/20 24 3:43 PM EST documented as of this encounter Care Teams Cms Expert Relationship Specialty Start Date End Date Christina Adamson ANP 230 [place] [address] PCP - General Family Medicine 03/10/20 documented as of this encounter
--- OUTSIDE RECORDS SUMMARY | 2025-05-13 16:54 | XMS_ITS | Encounter Summary ---
Author Organization [employer] Address [address] [facility] [address] 7t [place] [address] Care Team Providers Care Observatory Director Name Role Phone Christina Adamson Primary Care Provider [phone] Reason for Visit * Reason Comments Med Refill Encounter Details Date Type Department Care Team ([facility] st Contact Info) Description 06/03/2023 Refill [facility] MEDICINE [address] [place], [place] [phone] Christina Adamson ANP 230 [place] [address] Bipolar affective disorder, current episode mixed, current [...] Description 05/14/2025 3:00 PM EST Office Visit [facility] CHC ADULT DENTAL [address] [place] [address] Amando Allan DDS 230 [place] [address] 05/29/2025 3:30 PM EST Office Visit [facility] MEDICINE [address] [place] [address] Christina Adamson ANP 230 [place] [address] documented as of this encounter Visit Diagnoses Diagnosis Bipolar affective disorder, current episode mixed, current episode severity unspecified (CMS/HCC) (HCC) Hypercholesterolemia Pure hypercholesterolemia documented in this encounter Care Teams Observatory Director Relationship Specialty Start Date End Date Christina Adamson ANP [address] [place] [address] PCP - General Family Medicine 03/10/20 documented as of this encounter
--- OUTSIDE RECORDS SUMMARY | 2025-05-13 16:54 | XMS_ITS | Encounter Summary ---
Author Organization [employer] Address [address] [facility] 7t [place] [address] Care Team Providers Care Garnett Room Worker Name Role Phone Christina Adamson Primary Care Provider [phone] Encounter Details Date Type Department Care Team (Late Contact Info) Description 01/28/2023 Orders Only [address] [address] Juany Cabral LPN Social History Tobacco Use [...] Department Care Team (Late Contact Info) Description 05/14/2025 3:00 PM EST Office Visit [facility] CHC ADULT DENTAL 505 [place] [address] Amando Allan DDS [address] [place] [address] 05/29/2025 3:30 PM EST Office Visit [facility] MEDICINE [address] [place] [address] Christina Adamson, ANP [address] [place] [phone] documented as of this encounter Visit Diagnoses Not on filedocumented in this encounter Care Teams Garnett Room Worker Relationship Specialty Start Date End Date Christina Adamson ANP 230 [place] [address] PCP - General Family Medicine 03/10/20 documented as of this encounter
--- OUTSIDE RECORDS SUMMARY | 2025-05-13 16:54 | XMS_ITS | Encounter Summary ---
Author Organization [employer] Address [address] [facility] [address] 7t [place] [address] Care Team Providers Care Professor Of Communication Name Role Phone Snow Christina KEE Primary Care Provider [phone] Encounter Details Date Type Department Care Team (Late Contact Info) Description 07/28/2022 Orders Only [facility] MED & PEDS 505 [place] [address] Phyllis Camacho LPN Social History Tobacco Use [...] Description 05/14/2025 3:00 PM EST Office Visit [facility] CHC ADULT DENTAL 505 [place] [address] Amando Allan DDS 230 [place] [address] 05/29/2025 3:30 PM EST Office Visit [facility] MEDICINE 230 [place] [address] Christina Adamson ANP 230 [place] [address] documented as of this encounter Visit Diagnoses Not on filedocumented in this encounter Care Teams Professor Of Communication Relationship Specialty Start Date End Date Christina Adamson ANP 230 [place] [address] PCP - General Family Medicine 03/10/20 documented as of this encounter
--- OUTSIDE RECORDS SUMMARY | 2025-05-13 16:54 | XMS_ITS | Encounter Summary ---
Author Organization [employer] Address [address] [facility] [address] 7t [place] [address] Care Team Providers Care Kick Press Operator Name Role Phone Christina Adamson Primary Care Provider [phone] Encounter Details Date Type Department Care Team (Late Contact Info) Description 09/08/2022 Orders Only [facility] MED & [facility]EDS 505 [place] [address] Phyllis Camacho LPN Social History Tobacco Use [...] Description 05/14/2025 3:00 PM EST Office Visit [facility] CHC ADULT DENTAL 505 [place] [address] Amando Allan DDS 230 [place] [address] 05/29/2025 3:30 PM EST Office Visit [facility] MEDICINE 230 [place] [address] Christina Adamson ANP 230 [place] [address] documented as of this encounter Visit Diagnoses Not on filedocumented in this encounter Care Teams Kick Press Operator Relationship Specialty Start Date End Date Christina Adamson ANP 230 [place] [address] PCP - General Family Medicine 03/10/20 documented as of this encounter
--- OUTSIDE RECORDS SUMMARY | 2025-05-13 16:54 | XMS_ITS | Encounter Summary ---
Author Organization [employer] Address [address] [facility] [address] 7t [place] [address] Care Team Providers Care Lead Ramp Agent Name Role Phone Christina Adamson Primary Care Provider [phone] Reason for Visit * Reason Comments Med Refill Encounter Details Date Type Department Care Team ([facility] st Contact Info) Description 05/02/2025 Refill [facility] CHC ADULT DENTAL [address] [place] [address] Ko Swann DDS 230 [place] [address] Social History Tobacco Use Types Packs/Day Years [...] encounter Miscellaneous Notes * Telephone Encounter - Torsten Stephenson DMD - 05/06/2025 11:37 AM EDT Approving, but needs appt for additional refills. documented in this encounter Plan of Treatment Upcoming Encounters Date Type Department Care Team (Late st Contact Info) Description 05/14/2025 3:00 PM EST Office Visit [facility] CHC ADULT DENTAL [address] [place] [address] Amando Allan DDS 230 [place] [address] 05/29/2025 3:30 PM EST Office Visit [facility] MEDICINE 230 [place] [address] Christina Adamson ANP 230 [place] [address] documented as of this encounter Visit Diagnoses Not on filedocumented in this encounter Additional Health Concerns Assessment Noted Time PHQ-9 Depression Total Score: 5 06/01/20 24 3:43 PM EST documented as of this encounter Care Teams Lead Ramp Agent Relationship Specialty Start Date End Date Christina Adamson ANP 230 [place] [address] PCP - General Family Medicine 03/10/20 documented as of this encounter
--- OUTSIDE RECORDS SUMMARY | 2025-05-13 16:54 | XMS_ITS | Encounter Summary ---
Author Organization [employer] Address [address] [facility] [address] 7[address] [place] [address] Care Team Providers Care Obstetrics Tech Name Role Phone Snow Christina KEE Primary Care Provider [phone] Reason for Visit * Reason Comments Med Refill Encounter Details Date Type Department Care Team (Late Contact Info) Description 09/08/2022 Refill [facility] MEDICINE 230 [place], [place] [phone] Robinson Rodriguez MD 230 [place] [address] Bipolar affective disorder, current episode mixed, current episode severity unspecified (CMS/[facility]) Social History Tobacco Use Types Packs/Day [...] Description 05/14/2025 3:00 PM EST Office Visit [facility] CHC ADULT DENTAL [address] [place] [address] Amando Allan DDS 230 [place] [address] 05/29/2025 3:30 PM EST Office Visit [facility] MEDICINE 230 [place] [address] Christina Adamson ANP 230 [place] [address] documented as of this encounter Visit Diagnoses Diagnosis Bipolar affective disorder, current episode mixed, current episode severity unspecified (CMS/HCC) (HCC) documented in this encounter Care Teams Obstetrics Tech Relationship Specialty Start Date End Date Christina Adamson ANP 230 [place] [address] PCP - General Family Medicine 03/10/20 documented as of this encounter
--- OUTSIDE RECORDS SUMMARY | 2025-05-13 16:54 | XMS_ITS | Encounter Summary ---
Author Organization [employer] Address [address] [facility] [address] 7t [place] [address] Care Team Providers Care Pockets And Pieces Necktie Operator Name Role Phone Christina Adamson Primary Care Provider [phone] Reason for Visit * Reason Comments Med Refill Encounter Details Date Type Department Care Team ([facility] Contact Info) Description 10/26/2022 Refill [facility] MEDICINE 230 [place], [place] [phone] Christina Adamson ANP 230 [place] [address] Bipolar affective disorder, current episode mixed, current [...] Upcoming Encounters Date Type Department Care Team ([facility] Contact Info) Description 05/14/2025 3:00 PM EST Office Visit [facility] CHC ADULT DENTAL 505 [place] [address] Amando Allan, GEETHAS 230 [place] [address] 05/29/2025 3:30 PM EST Office Visit [facility] MEDICINE [address] [place] [address] Christina Adamson ANP 230 [place], [place] [phone] documented as of this encounter Visit Diagnoses Diagnosis Bipolar affective disorder, current episode mixed, current episode severity unspecified (CMS/HCC) (HCC) documented in this encounter Care Teams Pockets And Pieces Necktie Operator Relationship Specialty Start Date End Date Christina Adamson ANP [address] [place] [address] PCP - General Family Medicine 03/10/20 documented as of this encounter
--- OUTSIDE RECORDS SUMMARY | 2025-05-13 16:54 | XMS_ITS | Encounter Summary ---
Author Organization [employer] Address [address] [facility] [address] 7t [place] [address] Care Team Providers Care Telephone Triage Nurse Name Role Phone Christina Adamson Primary Care Provider [phone] Reason for Visit * Reason Onset Date Comments Med Refill 02/25/2025 Encounter Details Date Type Department Care Team ([facility] Contact Info) Description 02/25/2025 Telephone [facility] MEDICINE 230 [place], [place] [phone] Christina Adamson ANP 230 [place], [place] [phone] Med Refill Social History Tobacco Use Types [...] the past 12 months, has t he [employer], gas, oil or water company threatened to [...] 50 MG tablet To be sent to: [facility]/pharmacy #[id number] [facility] [phone] [facility] documented in this encounter Plan of Treatment Upcoming Encounters Date Type Department Care Team (Late st Contact Info) Description 05/14/2025 3:00 PM EST Office Visit [facility] ADULT DENTAL [address] [place], [place] [phone] Amando Allan DDS 230 [place], [place] [phone] 05/29/2025 3:30 PM EST Office Visit [facility] MEDICINE [address] [place] [address] Christina Adamson ANP 230 [place] [address] documented as of this encounter Visit Diagnoses Not on filedocumented in this encounter Additional Health Concerns Assessment Noted Time PHQ-9 Depression Total Score: 5 06/01/20 24 3:43 PM EST documented as of this encounter Care Teams Telephone Triage Nurse Relationship Specialty Start Date End Date Christina Adamson ANP 230 [place] [address] PCP - General Family Medicine 03/10/20 documented as of this encounter
--- OUTSIDE RECORDS SUMMARY | 2025-05-13 16:54 | XMS_ITS | Encounter Summary ---
Author Organization [employer] Address [address] [facility] [address] 7t [place] [address] Care Team Providers Care Supervisor Mold Shop Name Role Phone Snow Christina KEE Primary Care Provider Reason for Visit * Reason Comments Med Refill Encounter Details Date Type Department Care Team ([facility] [place] Contact Info) Description 09/29/2022 Refill [facility] 230 [place], [place] [phone] Robinson Rodriguez MD 230 [place] [address] Bipolar affective disorder, current episode mixed, current [...] Upcoming Encounters Date Type Department Care Team ([facility] Contact Info) Description 05/14/2025 3:00 PM EST Office Visit [facility] [address] [place], [place] [phone] Amando Allan, GEETHAS 230 [place] [address] 05/29/2025 3:30 PM EST Office Visit [facility] 230 [place] [address] Christina Adamson ANP [address] [place], [place] [phone] documented as of this encounter Visit Diagnoses Diagnosis Bipolar affective disorder, current episode mixed, current episode severity unspecified (CMS/HCC) (HCC) documented in this encounter Care Teams Supervisor Mold Shop Relationship Specialty Start Date End Date Christina Adamson ANP [address] [place] [address] PCP - General Family Medicine 03/10/20 documented as of this encounter
--- OUTSIDE RECORDS SUMMARY | 2025-05-13 16:54 | XMS_ITS | Encounter Summary ---
Author Organization [facility] Address [address] [facility] 7t [place] [address] Care Team Providers Care Hedis Abstractor Name Role Phone Christina Adamson Primary Care Provider [phone] Encounter Details Date Type Department Care Team (Latest Contact Info) Description 05/18/2022 Abstract [facility] CONVERSIONS Dental, Provider, DDS Social [...] Description 05/14/2025 3:00 PM EST Office Visit [facility] CHC ADULT DENTAL [address] [place] [address] Amando Allan DDS 230 [place] [address] 05/29/2025 3:30 PM EST Office Visit [facility] MEDICINE 230 [place] [address] Christina Adamson ANP [address] [place] [address] documented as of this encounter Visit Diagnoses Not on filedocumented in this encounter Care Teams Hedis Abstractor Relationship Specialty Start Date End Date Christina Adamson ANP [address] [place] [address] PCP - General Family Medicine 03/10/20 documented as of this encounter
--- OUTSIDE RECORDS SUMMARY | 2025-05-13 16:54 | XMS_ITS | Encounter Summary ---
Author Organization [employer] Address [address] [facility] [address] 7[address] [place] [address] Care Team Providers Care Battery Assembler Name Role Phone Christina Adamson Primary Care Provider [phone] Reason for Visit * Reason Onset Date Comments Nurse Triage 05/13/2025 Encounter Details Date Type Department Care Team ([facility] Contact Info) Description 05/13/2025 Telephone [facility] MEDICINE 230 [place], [place] [phone] Christina Adamson ANP 230 [place], [place] [phone] Nurse Triage Social History Tobacco Use Types Packs/Day Years [...] the past 12 months, has t he [employer] gas, oil or water [employer] threatened to shut off services in your [...] encounter Miscellaneous Notes * Telephone Encounter - Rere Fuentes RN - 05/13/2025 11:04 AM EST T/C returned to pt to triage. Pt reports widespread rash located on chest, abdomen, and thighs x 5 days. He describes it as tiny red dots that are not raised and not itchy. Pt denies any new detergents or personal hygiene products but does reports that dentist prescribed him amoxicillin and that hethough it might be r/t that so he stopped the amoxicillin 2 days ago but rash has persisted and appears to be spreading. Pt denies any difficulty breathing, fever, or any other Sx. Would like to be seen to make sure he isn't contagious. Advised to come to [facility] today. Gave hours of operation. Pt agrees with disposition. Will come after lunch today. Protocol Used: Rash or Redness - Widespread (Adult) Protocol-Based Disposition: See in Office or Video Visit Today Video visit offer not recorded Positive Triage Question: * Patient wants to be seen * All higher-acuity triage questions were negative Care Advice Discussed: * Reasons To Call Back - Rash becomes purple or blood-colored or blister-like - Fever occurs or severe itching - You become worse * Telephone Encounter - Lizandro Mckinney - 05/13/2025 10:43 AM EST Symptom: Rash or Redness - Widespread Outcome: Talk to a nurse or provider within 15 minutes Reason: Dark blood red spots (not pink) The caller accepted this outcome. Contact pt at [phone] documented in this encounter Plan of Treatment Upcoming Encounters Date Type Department Care Team (Late st Contact Info) Description 05/14/2025 3:00 PM EST Office Visit [facility] CHC ADULT DENTAL [address] [place] [address] Amando Allan DDS 230 [place] [address] 05/29/2025 3:30 PM EST Office Visit [facility] MEDICINE 230 [place] [address] Christina Adamson ANP 230 [place] [address] documented as of this encounter Visit Diagnoses Not on filedocumented in this encounter Additional Health Concerns Assessment Noted Time PHQ-9 Depression Total Score: 5 06/01/20 24 3:43 PM EST documented as of this encounter Care Teams Battery Assembler Relationship Specialty Start Date End Date Christina Adamson ANP [address] [place] [address] PCP - General Family Medicine 03/10/20 documented as of this encounter
--- OUTSIDE RECORDS SUMMARY | 2025-05-13 16:54 | XMS_ITS | Clinical Summary ---
Author Organization [employer] Address [address] [facility] 7t [place] [address] Care Team Providers Care Tile Applicator Name Role Phone Christina Adamson Primary Care Provider [phone] Allergies Active Allergy Reactions Criticality Noted Date Comments Octacosanol 11/28/2023 Medications QUEtiapine (SEROquel) 200 MG tabletIndicatio ns:Bipolar affective disorder, current episode mixed, current episode severity unspecified (CMS/HCC) (HCC) take 1 tablet by oral route every day at bedtime 90 tablet 023 Active Folate 400 MCG tabletIndicatio ns:Vitamin deficiency TAKE 1 TABLET BY ORAL ROUTE EVERY DAY FOR B VITAMIN 90 tablet 3 023 Active thiamine (Vitamin B-1) 100 MG tabletIndicatio ns:Vitamin deficiency TAKE 1 TABLET BY MOUTH EVERY DAY FOR B VITAMIN 90 tablet 3 023 Active hydrOXYzine pamoate (Vistaril) 50 MG capsule TAKE 1 CAPSULE BY MOUTH THREE TIMES A DAY NEEDED 90 capsule 3 023 Active QUEtiapine (SEROquel) 50 MG tabletIndicatio ns:Bipolar affective disorder, current episode mixed, current episode severity unspecified (CMS/HCC) (HCC) TAKE 1 TABLET BY MOUTH EVERY DAY 90 tablet 1 023 Active Sodium Fluoride (PreviDent 5000 Booster Plus) 1.1 % paste Please use pea size to brush your teeth twice daily. Spit. Do not rinse. 112 g 2 024 Active Multiple Vitamins-Minera ls ([facility] Spectravite Adults) tablet TAKE 1 TABLET BY MOUTH EVERY DAY WITH FOOD 90 tablet 3 024 Active lisinopril 20 MG tabletIndicatio ns:Hypertension , unspecified type TAKE 1 TABLET BY MOUTH EVERY DAY IN THE MORNING 90 tablet 3 024 Active atorvastatin (Lipitor) 10 MG tabletIndicatio ns:Hypercholest erolemia TAKE 1 TABLET BY MOUTH EVERYDAY AT BEDTIME 90 tablet 3 025 Active valACYclovir (Valtrex) 500 MG tabletIndicatio ns:Genital herpes simplex, unspecified site TAKE 1 TABLET BY MOUTH EVERY DAY 90 tablet 3 025 Active tamsulosin (Flomax) 0.4 MG 24 hr capsuleIndicati ons:Benign prostatic hyperplasia with urinary frequency TAKE 1 CAPSULE (0.4 MG) BY MOUTH ONCE PER DAY. 90 capsule 1 025 Active cloNIDine (Catapres) 0.1 MG tablet TAKE 1 TABLET BY MOUTH TWICE A DAY 180 tablet 3 025 Active docusate sodium (Colace) 100 MG capsuleIndicati ons:Constipatio n, unspecified constipation type TAKE 1 CAPSULE BY MOUTH TWICE A DAY 180 capsule 3 025 Active allopurinol (Zyloprim) 300 MG tablet Take 2 tablets (600 mg) by mouth Once per day. 180 tablet 3 025 Active omeprazole (PriLOSEC) [address] capsule TAKE 1 CAPSULE BY MOUTH EVERY DAY BEFORE A MEAL 90 capsule 1 025 Active loratadine (Claritin) 10 MG tablet TAKE 1 TABLET BY MOUTH EVERY DAY NEEDED FOR ALLERGIES 90 tablet 3 025 Active ibuprofen 600 MG tablet TAKE 1 TABLET BY MOUTH 3 TIMES DAILY. 15 tablet 025 Active acetaminophen (Tylenol 8 Hour) 650 MG ER tablet TAKE 1 TABLET BY MOUTH EVERY 8 HOURS IF NEEDED FOR MILD PAIN. DO NOT CRUSH, CHEW, OR SPLIT. 30 tablet 025 Active omega-3 1000 MG capsule capsuleIndicati ons:Hypertrigly ceridemia TAKE 1 CAPSULE BY MOUTH 2 TIMES DAILY. 180 capsule 1 025 Active methylPREDNISol one (Medrol Dospak) 4 MG tablets Follow schedule on package instructions 21 tablet 025 2024 Active OLANZapine (ZyPREXA) 20 MG tabletIndicatio ns:Depression with anxiety TAKE 1 TABLET BY MOUTH AT BEDTIME 90 tablet 023 2024 Discontinued(T herapy completed) divalproex (Depakote) 500 MG EC tabletIndicatio ns:Bipolar affective disorder, current episode mixed, current episode severity unspecified (CMS/HCC) (HCC) take 2 tablet by oral route twice daily 180 tablet 023 2024 Discontinued(T herapy completed) omega-3 1000 MG capsule capsuleIndicati ons:Hypertrigly ceridemia TAKE 1 CAPSULE BY MOUTH 2 TIMES DAILY. 180 capsule 1 025 2024 Discontinued acetaminophen (Tylenol 8 Hour) 650 MG ER tablet Take 1 tablet (650 mg) by mouth every 8 (eight) hours if needed for mild pain. Do not crush, chew, or split. 30 tablet 025 2024 Discontinued ibuprofen 600 MG tablet Take 1 tablet (600 mg) by mouth 3 times daily. 15 tablet 2024 Discontinued amoxicillin (Amoxil) 500 MG capsule Take 1 capsule (500 mg) by mouth every 8 (eight) hours for 7 days. 21 capsule 025 2024 Discontinued amoxicillin (Amoxil) 500 MG capsule TAKE 1 CAPSULE (500 MG) BY MOUTH EVERY 8 HOURS FOR 7 DAYS 21 capsule 025 2024 Discontinued(S zeus effects) Active Problems Problem Noted Date Diagnosed Date Rash 05/13/2025 Assessment & Plan (05/13/2025 4:30 PM EST): - Rash seems like a petechial rash, [...] amoxicillin allergy and to avoid further amoxicillin unless specifically indicated. Will call if blood work reveals abnormalities. Screening for lung cancer 07/13/2024 Overview (07/13/2024): order sent 07/13/24 Screening for malignant neoplasm of colon 2024 Overview (07/13/2024): 03/[address] Kemp, recommended colonoscopy within 3 to 5 years. Cocaine use disorder (CMS/HCC) 03/10/2023 Sialadenitis 07/09/2022 Retinal hemorrhage 12/23/2017 Gout 11/20/2013 Mixed anxiety and depressive disorder 10/25/2012 Genital herpes simplex 10/25/2012 Erectile dysfunction 10/25/2012 Hypercholesterolemia 01/27/2012 Hypertension 01/27/2012 Assessment & Plan (05/13/2025 4:32 PM EST): Uncontrolled and has been off medication for at least 2 days. Advised to restart lisinopril tomorrow, to go to ED if he develops chest pain, JAVIER, headache, weakness. Follow-up with PCP in 1 to 2 weeks to reassess BP control Tobacco dependence syndrome 01/27/2012 Alcohol abuse 01/27/2012 Backache 01/27/2012 Encounters Date Type Department Care Team Description 05/13/2025 3:20 PM EST Office Visit [facility] [address] [place] [phone] Aletha Kitchen MD Rash (Primary Dx); Primary hypertension 05/13/2025 Travel 05/13/2025 Telephone [facility] [address] [place] [phone] Christina Adamson ANP Nurse Triage 05/08/2025 3:00 PM EDT Office Visit [facility] ADULT DENTAL [address] [place], [place] [phone] Kit Lopez Dental calculus (Primary Dx); Dental caries; Periodontal disease 05/02/2025 Refill [facility] [address] [place] [address] Christina Adamson ANP Hypertriglyceridemia 05/02/2025 Refill [facility] ADULT D[facility] [address] [place], [place] [phone] Ko Swann DDS 05/01/2025 9:00 AM EDT Office Visit [facility] ADULT DENTAL [address] [place] [address] Amando Allan DDS 04/06/2025 Refill [facility] [address] [place] [address] Christina Adamson ANP Benign prostatic hyperplasia with urinary frequency 04/03/2025 Results Follow-Up [facility] [address] [place] [phone] Christina Adamson ANP PSA,Total, Valproic Acid Total, Hemoglobin and Hematocrit 03/29/2025 Refill [facility] [address] [place] [address] Christina Adamson ANP Constipation, unspecified constipation type 03/29/2025 Refill [facility] [address] [place] [phone] Aletha Kitchen MD 03/28/2025 2:30 PM EDT Office Visit [facility] ADULT DENTAL [address] [place] [address] Torsten Stephenson DMD Dental caries (Primary Dx) 03/04/2025 2:30 PM EDT Office Visit [facility]ULT [facility] [address] [place] [address] Torsten Stephenson, AISLINN Dental caries (Primary Dx) 02/25/[address] [address] Christina Adamson ANP Med Refill 02/25/[address] [address] Christina Adamson ANP Hypertriglyceridemia from Last 3 Months Immunizations Immunization Administration [...] Mass Index 26.69 05/13/2025 3:28 PM EST Plan of Treatment Upcoming Encounters Date Type Department Care Team (Late st Contact Info) Description 05/14/2025 3:00 PM EST Office Visit [facility] [address] [place] [address] Amando Allan, DDS [address] [place] [address] 05/29/2025 3:30 PM EST Office Visit [facility] [address] [place] [address] Christina Adamson, ANP [address] [place] [address] Health Maintenance Due Date Last Done Comments [...] Dental X-Ray: Bitewings 11/01/2025 11/01/19, 11/28/2023, 07/28/2023 Dental Oral Exam 11/07/2025 05/08/2025, , 11/28/2023 Dental Prophylaxis 11/07/2025 05/08/2025, 0 10/31/2024, 11/28/2023 DTaP/Tdap/Td Vaccines (3 - Td or Tdap) 11/08/2025 11/09/2015, 03/15/2012 Tobacco Screening 05/08/2026 05/08/2025 Lipid Panel 12/01/2026 12/01/2021 Dental X-Ray: Full [...] Procedure Name Priority Date/Time Associated Diagnosis Comments PERIODIC ORAL EVALUATION - ESTABLISHED PATIENT Routine 05/08/2025 3:00 PM EDT Dental caries Periodontal disease ORAL HYGIENE INSTRUCTIONS Routine 05/08/2025 3:00 PM EDT Dental caries Periodontal disease CASE PRESENTATION, DETAILED AND EXTENSIVE TREATMENT PLANNING Routine 05/08/2025 3:00 PM EDT Dental caries Periodontal disease PROPHYLAXIS - ADULT Routine 05/08/2025 3 :00 PM EDT Dental caries Periodontal disease CASE PRESENTATION, DETAILED AND EXTENSIVE TREATMENT PLANNING Routine 05/01/2025 9:00 AM EDT 2 EXTRACTION, ERUPTED TOOTH OR EXPOSED ROOT (ELEVATION/FORCEPS REMOVAL) Routine 05/01/2025 9:00 AM EDT CASE PRESENTATION, DETAILED AND EXTENSIVE TREATMENT PLANNING Routine 03/28/2025 2:30 PM EDT Dental caries 22 F(V) RESIN-BASED COMPOSITE - 1 SURF, ANTERIOR Routine 03/28/2025 2:30 PM EDT Dental caries 20 B(V) RESIN-BASED COMPOSITE - 1 SURF, POSTERIOR Routine 03/28/2025 2:30 PM EDT Dental caries 21 B(V) RESIN-BASED COMPOSITE - 1 SURF, POSTERIOR Routine 03/28/2025 2:30 PM EDT Dental caries 19 DO RESIN-BASED COMPOSITE - 2 SURF, POSTERIOR Routine 03/28/2025 2:30 PM EDT Dental caries 18 B(V) RESIN-BASED COMPOSITE - 1 SURF, POSTERIOR Routine 03/28/2025 2:30 PM EDT Dental caries HEMOGLOBIN + HEMATOCRIT Routine 03/20/2025 3:09 PM EDT Shortness of breath VALPROIC ACID Routine 03/20/2025 3:09 PM EDT Mixed anxiety and depressive disorder PSA, TOTAL Routine 03/20/2025 3:09 PM EDT Prostate cancer screening CASE PRESENTATION, DETAILED AND EXTENSIVE TREATMENT PLANNING Routine 03/04/2025 2:30 PM EDT Dental caries 9 F(V) RESIN-BASED COMPOSITE - 1 SURF, ANTERIOR Routine 03/04/2025 2:30 PM EDT Dental caries INTRAORAL - COMPLETE SERIES OF RADIOGRAPHIC IMAGES [...] EDT) Hemoglobin 12.5(L) 14.0 - 18.0 g/dl [facility] Hematocrit 37.2(L) 42.0 - 52.0 % [facility] Blood Venous blood specimen / Unknown 03/20/2025 3:09 PM EDT 03/20/2025 3:59 PM EDT [facility] LAB BLOOD ORDERABLES Final Resul t [facility] [address] [place] [phone] * PSA,Total (03/20/2025 3:09 PM EDT) Prostate Specific Antigen 0.52 <0.05 - 4.0 ng/mL [facility] Comment:PSA methodology: Tari Mcgraw i ChemiluminescentMicroparticle Immunoassay (CMIA) Blood Venous blood specimen / Unknown 03/20/2025 3:09 PM EDT 03/20/2025 3:59 PM EDT Christina Adamson [facility] LAB BLOOD ORDERABLES Final Resul t Performing Organization Address [facility] Co de Phone Number [facility] [address] [place] [phone] * Valproic Acid Total (03/20/2025 3:09 PM EDT) [facility] Valproate 66.9 50.0 - 100.0 mcg/mL [facility] Blood Venous blood specimen / Unknown 03/20/2025 3:09 PM EDT 03/20/2025 3:59 PM EDT Christina Adamson [facility] LAB BLOOD ORDERABLES Final Resul t Performing Organization Address [facility] Co de Phone Number [facility] [address] [place] [phone] * Hepatitis C Antibody with Reflex to HCV, RNA, Quantitative, Real-Time PCR (12/13/2023 10:15 AM EDT) [facility] Hepatitis C Antibody Nonreactive Nonreactive [facility] Comment:Antibodies to HCV no t detected; does not exclude early acuteHCV infection. Blood Venous blood specimen / Unknown 12/13/2023 10:15 AM EDT 12/13/2023 11:48 AM EDT Christina Adamson [facility] LAB BLOOD ORDERABLES Final Resul t Performing Organization Address [facility] Co de Phone Number [facility] [address] [place] [phone] * HIV-1/2 Antigen and Antibodies, Fourth Generation, with Reflexes (12/13/2023 10:15 AM EDT) [facility] HIV AB/AG Nonreactive Nonreactive [facility] Comment:HIV-1 p24 Ag and/or HIV-1/HIV-2 Ab not detected.A test result that is nonreactive does not exclude thepossibility of exposure to or infection with HIV-1 and/orHIV-2. Nonreactive results in this assay for individualswith prior exposure to HIV-1 and/or HIV-2 may be due toantigen and antibody levels that are below the limit ofdetection of this assay.The [employer] HIV Ag/Ab Combo assay result andsupplemental assay results should be interpreted inconjunction with the patient's clinical presentation,history and other laboratory results. If the results areinconsistent with clinical evidence, additional testing issuggested to confirm the result. Blood Venous blood specimen / Unknown 12/13/2023 10:15 AM EDT 12/13/2023 11:48 AM EDT [facility] LAB BLOOD ORDERABLES Final Resul t [facility] [address] [place] [phone] * (ABNORMAL) LIPID PANEL, STANDARD (12/01/2021 11:20 AM EDT) Chol/HDLC Ratio 4.3 <5.0 (calc) [facility] Cholesterol, Total 182 <200 mg/dL [facility] HDL Cholesterol 42 > OR = 40 mg/dL [facility] LDL Cholesterol 113(H) mg/dL (calc) [facility] Comment: Reference range: <100 Desirable range <100 mg/dL for primary prevention; <70 mg/dL for patients with CHD or diabetic patients with > or = 2 CHD risk factors. LDL-C is now calculated using the Rojelio-Spencer calculation, which is a validated novel method providing better accuracy than the Friedewald equation in the estimation of LDL-C. Rojelio LEBRON et al. TAYLOR. 2013;310(19): 8299-5317 (http://education.QingCloud.com/faq/JPA756) Non-HDL Cholesterol 140(H) <130 mg/dL (calc) [facility] Comment: For patients with diabetes plus 1 major ASCVD risk factor, treating to a non-HDL-C goal of <100 mg/dL (LDL-C of <70 mg/dL) is considered a therapeutic option. Triglycerides 157(H) <150 mg/dL [facility] 12/01/2021 11:2 0 AM EDT Christina KEE LAB BLOOD ORDERABLES Final Resul t [facility] [address] * (ABNORMAL) Colonoscopy (08/01/2020) Colonoscopy Abnormal(A ) Normal Historical Provider MD HEALTH MAINTENANCE Final Result from Last 3 Months or Most Recently Relevant to Health Maintenance Insurance 65 [facility] Care Teams Tile Applicator Relationship Specialty Start Date End Date Christina Adamson ANP [address] [place] [phone] PCP - General Family Medicine 03/10/20
--- OUTSIDE RECORDS SUMMARY | 2025-05-13 16:54 | XMS_ITS | Encounter Summary ---
Author Organization [employer] Address [address] 7[address] [place] [address] Care Team Providers Care Planer Operator / Grader Name Role Phone Snow Christina KEE Primary Care Provider [phone] Encounter Details Date Type Department Care Team (Late Contact Info) Description 08/23/2022 Orders Only [facility] [address] [place] [address] Phyllis Camacho LPN Social History Tobacco Use [...] Description 05/14/2025 3:00 PM EST Office Visit [facility] ADULT D[facility] [address] [place] [address] Amando Allan DDS [address] [place] [address] 05/29/2025 3:30 PM EST Office Visit [facility] MED[facility] [address] [place] [address] Christina Adamson ANP [address] [place] [address] documented as of this encounter Visit Diagnoses Not on filedocumented in this encounter Care Teams Planer Operator / Grader Relationship Specialty Start Date End Date Christina Adamson ANP [address] [place] [address] PCP - General Family Medicine 03/10/20 documented as of this encounter
--- OUTSIDE RECORDS SUMMARY | 2025-05-13 16:54 | XMS_ITS | Encounter Summary ---
Author Organization [employer] Address [address] [place] [address] Care Team Providers Care Television Camera Operator Name Role Phone Christina Adamson Primary Care Provider [phone] Reason for Visit * Reason Onset Date Comments rs no show appt 01/14/2025 Encounter Details Date Type Department Care Team ([facility] Contact Info) Description 01/14/2025 Telephone [facility] ADULT DENT[facility] [address] [place], [place] [phone] Torsten Stephenson, DMD [address] [place] [address] rs no show appt Social History Tobacco [...] Description 05/14/2025 3:00 PM EST Office Visit [facility]ULT [facility] [address] [place] [address] Amando Allan DDS [address] [place] [address] 05/29/2025 3:30 PM EST Office Visit [facility] [address] [place], [place] [phone] Christina Adamson ANP [address] [place] [address] documented as of this encounter Visit Diagnoses Not on filedocumented in this encounter Additional Health Concerns Assessment Noted Time PHQ-9 Depression Total Score: 5 06/01/20 24 3:43 PM EST documented as of this encounter Care Teams Television Camera Operator Relationship Specialty Start Date End Date Christina Adamson ANP [address] [place] [phone] PCP - General Family Medicine 03/10/20 documented as of this encounter
--- OUTSIDE RECORDS SUMMARY | 2025-05-13 16:54 | XMS_ITS | Encounter Summary ---
Author Organization [employer] Address [address] [facility] [address]t [place] [address] Care Team Providers Care Auto Inspection Specialist Name Role Phone Christina Adamson Primary Care Provider [phone] Encounter Details Date Type Department Care Team (Late Contact Info) Description 12/09/2022 Orders Only [facility] [address] [place] [address] Phyllis Camacho LPN Social History Tobacco Use [...] Description 05/14/2025 3:00 PM EST Office Visit [facility] ADULT DENTAL [address] [place] [address] Amando Allan DDS [address] [place] [phone] 05/29/2025 3:30 PM EST Office Visit [facility] [address] [place] [address] Christina Adamson ANP [address] [place] [address] documented as of this encounter Visit Diagnoses Not on filedocumented in this encounter Care Teams Auto Inspection Specialist Relationship Specialty Start Date End Date Christina Adamson ANP [address] [place] [address] PCP - General Family Medicine 03/10/20 documented as of this encounter
--- OUTSIDE RECORDS SUMMARY | 2025-05-13 16:54 | XMS_ITS | Encounter Summary ---
Author Organization [employer] Address [address] [facility] 7t [place] [address] Care Team Providers Care Labor Arbitrator Hearing Office Name Role Phone Christina Adamson Primary Care Provider [phone] Encounter Details Date Type Department Care Team (Late Contact Info) Description 01/14/2023 Orders Only [facility] [address] [place] [address] Phyllis Camacho LPN Social History Tobacco Use [...] Description 05/14/2025 3:00 PM EST Office Visit [facility] ADULT DENTAL [address] [place] [address] Amando Allan DDS [address] [place] [address] 05/29/2025 3:30 PM EST Office Visit [facility] MEDICINE [address] [place] [address] Christina Adamson ANP [address] [place] [address] documented as of this encounter Visit Diagnoses Not on filedocumented in this encounter Care Teams Labor Arbitrator Hearing Office Relationship Specialty Start Date End Date Christina Adamson ANP [address] [place] [address] PCP - General Family Medicine 03/10/20 documented as of this encounter
--- OUTSIDE RECORDS SUMMARY | 2025-05-13 16:54 | XMS_ITS | Encounter Summary ---
Author Organization [employer] Address [address] [place] [address] Care Team Providers Care Linen Supervisor Name Role Phone Christina Adamson Primary Care Provider [phone] Encounter Details Date Type Department Care Team (Latest Contact Info) Description 05/13/2025 Travel Social History Tobacco Use Types Packs/Day Years [...] Description 05/14/2025 3:00 PM EST Office Visit [facility] ADULT DENTAL [address] [place] [address] Amando Allan DDS [address] [place] [address] 05/29/2025 3:30 PM EST Office Visit [facility] MEDICINE [address] [place] [address] Christina Adamson ANP [address] [place] [phone] documented as of this encounter Visit Diagnoses Not on filedocumented in this encounter Additional Health Concerns Assessment Noted Time PHQ-9 Depression Total Score: 5 06/01/20 24 3:43 PM EST documented as of this encounter Care Teams Linen Supervisor Relationship Specialty Start Date End Date Christina Adamson ANP [address] [place] [phone] PCP - General Family Medicine 03/10/20 documented as of this encounter
[2025-05-13 18:07] LABS: Appearance Urine Clear; Glucose Urine UA Negative (Negative); PH 7.5 (5.0-9.0); Specific Gravity - Urine 1.010 (1.005-1.025); UMIC TRIGGER UACC YES
[2025-05-13 18:07] LABS: MANUAL DIFF FLAG NO
[2025-05-13 18:44] LABS: Hematocrit 38.3 % (42.0-52.0); Hemoglobin 12.9 g/dl (14.0-18.0); Imm Gran Abs Auto 0.03 X10*3/uL (0.00-0.03); Imm Gran Pct Auto 0.5 % (0.0-0.4); Lymphocytes Absolute Auto 1.9 X10*3/uL (1.2-4.9); Mean Corpuscular HGB Conc 33.7 g/dl (31.0-36.0); Mean Corpuscular Hemoglobin 35.4 pg (27.0-33.0); Mean Corpuscular Volume 105.2 fL (80.0-98.0); NRBC Abs Auto 0.000 X10*3/uL (0.0-0.012); NRBC Pct Auto 0.0 /100WBC (0.0-0.2); Platelet Count 146 X10*3/uL (160-400); Red Blood Count 3.64 X10*6/uL (4.60-5.80); White Blood Count 5.9 X10*3/uL (4.8-10.8)
[2025-05-14 05:34] LABS: Syphilis Screen Nonreactive (Nonreactive)
[2025-05-14 06:28] LABS: HBS Num1 8.24 mIU/mL (0-7.99); HBc Num1 0.13 S/CO (0.00-0.79); HBsAGNum1 0.43 S/CO (0.00-0.99); HIV Num 1 0.05 S/CO (0.00-0.99); Hepatitis A Antibody IgM 0.21 Index (0-0.79); Hepatitis B Surface Antigen Negative (Negative); ~HepC Num1 0.11 S/CO (0.00-0.79); ~Hepatitis A Antibody IgM Nonreactive (Nonreactive); ~Hepatitis C Antibody Nonreactive (Nonreactive)
[2025-05-14 09:40] LABS: HBS Num2 8.21 mIU/mL (0-7.99); HBS Num3 8.10 mIU/mL (0-7.99); ~Hepatitis B Surface Antibody GRAYZONE (Nonreactive)
[2025-05-22 13:13] LABS: Anti Nuclear Antibody Pattern Mitotic, Centrosome; Anti Nuclear Antibody Screen POSITIVE (NEGATIVE); Anti Nuclear Antibody Titer 1:1280 titer
== END 2025-05-13 15:45 | disposition home or self-care (01) ==
LOC: HO.HHCL 15:44
PROVIDERS: PCP Internal Medicine; Visit Provider Internal Medicine
DX: Z01.84 Encounter for antibody response examination (principal); Z11.4 Encounter for screening for human immunodeficiency virus [HIV]; R21 Rash and other nonspecific skin eruption
CPT/HCPCS: 36415; 81001; 85025; 85652; 86038; 86039; 86140; 86704; 86706; 86709; 86780; 86803; 87340; 87389

== ENCOUNTER 2025-06-13 15:49 | Outpatient (REF) | payer OTHER, SELFPAY ==
--- OUTSIDE RECORDS SUMMARY | 2025-06-13 15:30 | XMS_ITS | Encounter Summary ---
Author Organization [employer] Address [address] [facility] 7t [place] [address] Care Team Providers Care Assistant Librarian Name Role Phone Adamson Christina KEE Primary Care Provider [phone] Reason for Visit * Reason Comments BP Check Encounter Details Date Type Department Care Team (Latest Contact Info) Description 06/13/2025 3:30 PM EST Clinical Support [facility] MEDICINE [address] [place], [place] [phone] Rere Fuentes RN [address] [place], [place] [phone] Primary hypertension Social History Tobacco Use Types [...] Answer Date Recorded Patient Health Questionnaire-9 Score 18 05/29/2025 Patient Health Questionnaire-9 Score 18 05/29/2025 Last PHQ-9: Questionnaire Data Not on file 1 07/29/2024 Housing Stability Answer Date Recorded What is your housing situation today? I do not have housing (Staying with others, in a hotel, in a halfway, living outside on the street, on a beach, in a car, or in a park 05/29/[address] you li ve. Do you have problems with any of the following? None of the above 05/29/2025 Food Insecurity Answer Date Recorded Within the past 12 months, y ou worried that your food would run out before you got money to buy more: Often true 05/29/2025 Within the past 12 months,th e food you bought just didn't last and you didn't have enough money to get more: Often true Transportation Answer Date Recorded In the past 12 months, has l ack of transportation kept you from medical appts, meetings, work or from getting things needed for daily living? No 05/29/2025 Utilities Answer Date Recorded In the past 12 months, has t he electric, gas, oil or water company threatened to shut off services in your home? No 05/29/2025 Depression Answer Date Recorded Patient Health Questionnaire-2 Score 6 05/29/2025 Internet Access Answer Date Recorded Internet Access Q1 Yes 05/29/2025 Internet Access Q2 Not on file 05/29/2025 Sex and Gender Information Value Date Recorded Sex Assigned at Male 05/10/2022 10:15 AM EDT Legal Sex Male 10:15 AM EDT Gender Identity Male 05/10/2022 10:15 AM EDT Sexual Orientation Straight 05/10/2022 10 :15 AM EDT documented as of this encounter Last Filed Vital Signs Vital Sign Reading Time Taken Comments Blood Pressure 134/96 06/13/2025 3:58 PM EST Pulse 83 06/13/2025 3:58 PM EST Temperature - - Respiratory Rate 18 06/13/2025 3:58 PM EST Oxygen Saturation 98% 06/13/2025 3:58 PM EST Inhaled Oxygen Concentration - - Weight - - Height - - Body Mass Index - - documented in this encounter Progress Notes * Rere Fuentes RN - 06/13/2025 3:30 PM EST Ruben is a pleasant 59yo male who presents to the office for follow up blood pressure check nurse visit. S: At last appt 05/29/2025, pt's BP noted to be 150/100. Pt hadn't taken losartan that day so plan was to continue same medication regimen and return for [place] pressure check. Pt current blood pressure medication regimen: lisinopril 20mg daily . Today, pt denies any blurred vision, shortness of breath, chest pain, dizziness, or headaches. Pt reports compliance with BP medication regimen, confirms that BP medication was taken today. Pt drinks 1 cup of coffee daily, had it this morning. Pt smokes cigarettes 2-4 cigarettes daily, smoked one in the car on the way here. O: blood pressure in office: 134/96, heart rate: 83, RR: 18. Blood pressure taken while pt was seated in normal chair with feet on the ground and legs uncrossed. Appropriate sized blood pressure cuffused and blood pressure was taken manually on right arm. Pt reports that he has a home blood pressure machine but has not been checking his blood pressure at home. A: Compliance with BP medication regimen. Reinforcement of Lifestyle modification including low sodium diet and exercise. P: Informed will send to PCP and will call with any changes advised. Pt to call [facility] if SBP >150 or DBP>90 consistently Keep blood pressure log and bring to appts. Next appt booked for Future Appointments Date Time Provider Department Center 06/24/2025 2:30 PM Raeann Taylor [facility] 07/15/2025 2:15 PM VIDHYA Wong [facility] Pt to F/U sooner as needed Pt going down to get outstanding labs done today Rere Fuentes RN documented in this encounter Plan of Treatment Upcoming Encounters Date Type Department Care Team (Late st Contact Info) Description 07/15/2025 2:15 PM EST Office Visit [facility] MEDICINE [address] [place] [address] Christina Adamson ANP [address] [place] [address] documented as of this encounter Visit Diagnoses Diagnosis Primary hypertension Unspecified essential hypertension documented in this encounter Additional Health Concerns Assessment Noted Time PHQ-9 Depression Total Score: 18 025 3:57 PM EST documented as of this encounter Care Teams Assistant Librarian Relationship Specialty Start Date End Date Christina Adamson ANP [address] [place] [address] PCP - General Family Medicine 03/10/20 documented as of this encounter
[2025-06-13 18:31] LABS: Alanine Aminotransferase 16 U/L (0-40); Albumin Level 4.4 g/dL (3.5-5.0); Alkaline Phosphatase 79 U/L (39-117); Anion Gap 11 (12-20); Aspartate Amino Transferase 20 U/L (5-37); Blood Urea Nitrogen 15 mg/dL (9-16); Calcium 9.1 mg/dL (8.4-10.2); Carbon Dioxide 28 mmol/L (22-29); Chloride 110 mmol/L (96-108); Estimated Glomerular Filt Rate > 60; Iron 92 mcg/dL (45-160); Percent Iron Saturation 32 % (15-50); Potassium 4.4 mmol/L (3.3-5.1); Sodium 145 mmol/L (135-145); Total Iron Binding Capacity 292 mcg/dL (228-428); Total Protein 6.5 g/dL (6.5-8.0); Unsaturated Iron Binding 200 ug/dL
--- OUTSIDE RECORDS SUMMARY | 2025-06-13 21:56 | XMS_ITS | Clinical Summary ---
Author Organization [employer] [facility] it[facility] Address [address] [place] [address] Care Team Providers Care Scheduling Representative Name Role Phone Unavailable Primary Care [...] Depression Screening 07/11/2024 COVID-19 Vaccine (1 - 2024-2 6 season) 2025 Influenza Vaccine (#1) 2025 RSV [...]
--- OUTSIDE RECORDS SUMMARY | 2025-06-13 21:57 | XMS_ITS | Encounter Summary ---
Author Organization [employer] Address [address] 7[address] [place] [address] Care Team Providers Care Communication Clerk Name Role Phone Christina Adamson Primary Care Provider [phone] Reason for Visit * Reason Onset Date Comments rs no show appt 01/14/2025 Encounter Details Date Type Department Care Team ([facility] Contact Info) Description 01/14/2025 Telephone [facility] CHC ADULT DENTAL [address] [place], [place] [phone] Torsten Stephenson, DMD [address] [place] [address] rs no show appt Social History Tobacco [...] Description 07/15/2025 2:15 PM EST Office Visit [facility] MEDICINE [address] [place] [address] Christina Adamson ANP [address] [place] [address] documented as of this encounter Visit Diagnoses Not on filedocumented in this encounter Additional Health Concerns Assessment Noted Time PHQ-9 Depression Total Score: 5 06/01/20 24 3:43 PM EST documented as of this encounter Care Teams Communication Clerk Relationship Specialty Start Date End Date Christina Adamson ANP [address] [place] [address] PCP - General Family Medicine 03/10/20 documented as of this encounter
--- OUTSIDE RECORDS SUMMARY | 2025-06-13 21:57 | XMS_ITS | Encounter Summary ---
Author Organization [employer] Address [address] [facility] 7t [place] [address] Care Team Providers Care Casting Machine Operator Automatic Name Role Phone Christina Adamson Primary Care Provider [phone] Encounter Details Date Type Department Care Team (Late Contact Info) Description 12/09/2022 Orders Only [facility] CHC MED & PEDS [address] [place], [place] [phone] Phyllis Camacho LPN Social History Tobacco Use [...] Department Care Team (Late Contact Info) Description 07/15/2025 2:15 PM EST Office Visit [facility] MEDICINE [address] [place] [address] Christina Adamson ANP [address] [place] [address] documented as of this encounter Visit Diagnoses Not on filedocumented in this encounter Care Teams Casting Machine Operator Automatic Relationship Specialty Start Date End Date Christina Adamson ANP [address] [place] [address] PCP - General Family Medicine 03/10/20 documented as of this encounter
--- OUTSIDE RECORDS SUMMARY | 2025-06-13 21:57 | XMS_ITS | Encounter Summary ---
Author Organization [employer] Address [address] [address] [facility] [address] 7t [place] [address] Care Team Providers Care Rabbler Name Role Phone Christina Adamson Primary Care Provider [phone] Reason for Visit * Reason Onset Date Comments Med Refill 02/25/2025 Encounter Details Date Type Department Care Team ([facility] Contact Info) Description 02/25/2025 Telephone [facility] MEDICINE [address] [place], [place] [phone] Christina Adamson ANP [address] [place], [place] [phone] Med Refill Social History Tobacco Use Types [...] the past 12 months, has t he [employer], gas, oil or water company threatened to [...] 50 MG tablet To be sent to: [facility]/pharmacy #[id number] [facility] [phone] [facility] documented in this encounter Plan of Treatment Upcoming Encounters Date Type Department Care Team (Late st Contact Info) Description 07/15/2025 2:15 PM EST Office Visit [facility] MEDICINE [address] [place] [address] Christina Adamson ANP [address] [place], [place] [phone] documented as of this encounter Visit Diagnoses Not on filedocumented in this encounter Additional Health Concerns Assessment Noted Time PHQ-9 Depression Total Score: 5 06/01/20 24 3:43 PM EST documented as of this encounter Care Teams Rabbler Relationship Specialty Start Date End Date Christina Adamson ANP [address] [place] [address] PCP - General Family Medicine 03/10/20 documented as of this encounter
--- OUTSIDE RECORDS SUMMARY | 2025-06-13 21:57 | XMS_ITS | Encounter Summary ---
Author Organization [employer] Address [address] [facility] [address] [facility] [address] 7[address] [place] [address] Care Team Providers Care Boatwright Name Role Phone Christina Adamson Primary Care Provider [phone] Encounter Details Date Type Department Care Team (Late Contact Info) Description 08/23/[address] [facility] CHC MED & PEDS [address] [place], [place] [phone] Phyllis Camacho LPN Social History Tobacco Use [...] Description 07/15/2025 2:15 PM EST Office [address] [facility] MEDICINE [address] [place], [place] [phone] Christina Adamson ANP [address] [place], [place] [phone] documented as of this encounter Visit Diagnoses Not on filedocumented in this encounter Care Teams Boatwright Relationship Specialty Start Date End Date Christina Adamson ANP [address] [place] [address] PCP - General Family Medicine 03/10/20 documented as of this encounter
--- OUTSIDE RECORDS SUMMARY | 2025-06-13 21:57 | XMS_ITS | Encounter Summary ---
Author Organization [employer] Address [address] [facility] 7t [place] [address] Care Team Providers Care Clinic Cma Name Role Phone Christina Adamson Primary Care Provider [phone] Encounter Details Date Type Department Care Team (Late Contact Info) Description 01/28/2023 Orders Only [facility] MEDICINE [address] [place] [phone] Juany Cabral LPN Social History Tobacco Use [...] Description 07/15/2025 2:15 PM EST Office Visit [facility] MEDICINE [address] [place] [address] Christina Adamson ANP [address] [place] [address] documented as of this encounter Visit Diagnoses Not on filedocumented in this encounter Care Teams Clinic Cma Relationship Specialty Start Date End Date Christina Adamson ANP [address] [place] [address] PCP - General Family Medicine 03/10/20 documented as of this encounter
--- OUTSIDE RECORDS SUMMARY | 2025-06-13 21:57 | XMS_ITS | Encounter Summary ---
Author Organization [employer] Address [address] [place] [address] Care Team Providers Care Railroad Brakeman Name Role Phone Christina Adamson Primary Care Provider [phone] Encounter Details Date Type Department Care Team (Late Contact Info) Description 07/28/2022 Orders Only [facility] CHC MED & PEDS [address] [place], [place] [phone] Phyllis Camacho LPN Social History Tobacco Use [...] Description 07/15/2025 2:15 PM EST Office Visit [facility] MEDICINE [address] [place], [place] [phone] Christina Adamson ANP [address] [place], [place] [phone] documented as of this encounter Visit Diagnoses Not on filedocumented in this encounter Care Teams Railroad Brakeman Relationship Specialty Start Date End Date Christina Adamson ANP [address] [place] [address] PCP - General Family Medicine 03/10/20 documented as of this encounter
--- OUTSIDE RECORDS SUMMARY | 2025-06-13 21:57 | XMS_ITS | Encounter Summary ---
Author Organization [employer] Address [address] [place] [address] Care Team Providers Care Lab Animal Technologist Name Role Phone Christina Adamson Primary Care Provider Encounter Details Date Type Department Care Team (Latest Contact Info) Description 06/13/2025 Travel Social History Tobacco Use Types Packs/Day [...] with others, in a hotel, in a residential, living outside on the street, on a [...] Description 07/15/2025 2:15 PM EST Office Visit [facility] MEDICINE [address] [place] [address] Christina Adamson ANP [address] [place] [address] documented as of this encounter Visit Diagnoses Not on filedocumented in this encounter Additional Health Concerns Assessment Noted Time PHQ-9 Depression Total Score: 18 025 3:57 PM EST documented as of this encounter Care Teams Lab Animal Technologist Relationship Specialty Start Date End Date Christina Adamson ANP [address] [place] [address] PCP - General Family Medicine 03/10/20 documented as of this encounter
--- OUTSIDE RECORDS SUMMARY | 2025-06-13 21:57 | XMS_ITS | Encounter Summary ---
Author Organization [employer] [facility] Address [address] [facility] 7t [place] [address] Care Team Providers Care Open Cut Examiner Name Role Phone Christina Adamson Primary Care Provider [phone] Encounter Details Date Type Department Care Team (Latest Contact Info) Description 05/21/2021 Abstract [facility] CONVERSIONS Dental, Provider, DDS Social History Tobacco [...] Description 07/15/2025 2:15 PM EST Office Visit [facility] MEDICINE [address] [place] [address] Christina Adamson ANP [address] [place] [address] documented as of this encounter Visit Diagnoses Not on filedocumented in this encounter Care Teams Open Cut Examiner Relationship Specialty Start Date End Date Christina Adamson ANP [address] [place] [address] PCP - General Family Medicine 03/10/20 documented as of this encounter
--- OUTSIDE RECORDS SUMMARY | 2025-06-13 21:57 | XMS_ITS | Encounter Summary ---
Author Organization [employer] Address [address] [place] [address] Care Team Providers Care Mmi Teacher Name Role Phone Christina Adamson Primary Care Provider [phone] Reason for Visit * Reason Comments Med Refill Encounter Details Date Type Department Care Team ([facility] Contact Info) Description 10/26/[address] [facility] MEDICINE [address] [place] [phone] Christina Adamson ANP [address] [place], [place] [phone] Bipolar affective disorder, current episode mixed, current [...] Upcoming Encounters Date Type Department Care Team ([facility] Contact Info) Description 07/15/2025 2:15 PM EST Office Visit [facility] MEDICINE [address] [place] [phone] Christina Adamson ANP [address] [place] [address] documented as of this encounter Visit Diagnoses Diagnosis Bipolar affective disorder, current episode mixed, current episode severity unspecified (CMS/HCC) (HCC) documented in this encounter Care Teams Mmi Teacher Relationship Specialty Start Date End Date Christina Adamson ANP [address] [place] [address] PCP - General Family Medicine 03/10/20 documented as of this encounter
--- OUTSIDE RECORDS SUMMARY | 2025-06-13 21:57 | XMS_ITS | Encounter Summary ---
Author Organization [employer] Address [address] 7[address] [place] [address] Care Team Providers Care Wheelman Name Role Phone Christina Adamson Primary Care Provider [phone] Reason for Visit * Reason Onset Date Comments episcopal appt 02/06/2025 Encounter Details Date Type Department Care Team ([facility] Contact Info) Description 02/06/2025 Telephone [facility] CHC ADULT DENTAL [address] [place], [place] [phone] Torsten Stephenson, DMD [address] [place] [address] episcopal appt Social History Tobacco Use Types Packs/Day [...] on 02/04 and left without scheduling next episcopal visit. Patient would like his next appt. Explained to patient that appt is active requested however provider did not have immediate appt slots available and he will receive a call from office to schedule. Patient understoodDR documented in this encounter Plan of Treatment Upcoming Encounters Date Type Department Care Team (Late st Contact Info) Description 07/15/2025 2:15 PM EST Office Visit [facility] MEDICINE [address] [place] [address] Christina Adamson ANP [address] [place] [address] documented as of this encounter Visit Diagnoses Not on filedocumented in this encounter Additional Health Concerns Assessment Noted Time PHQ-9 Depression Total Score: 5 06/01/20 24 3:43 PM EST documented as of this encounter Care Teams Wheelman Relationship Specialty Start Date End Date Christina Adamson ANP [address] [place] [address] PCP - General Family Medicine 03/10/20 documented as of this encounter
--- OUTSIDE RECORDS SUMMARY | 2025-06-13 21:57 | XMS_ITS | Encounter Summary ---
Author Organization [employer] Address [address] 7[address] [place] [address] Care Team Providers Care Bobbin Winder Name Role Phone Christina Adamson Primary Care Provider [phone] Encounter Details Date Type Department Care Team (Late Contact Info) Description 01/14/2023 Orders Only [facility] CHC MED & PEDS [address] [place], [place] [phone] Phyllis Camacho LPN Social History Tobacco Use [...] Description 07/15/2025 2:15 PM EST Office Visit [facility] MEDICINE [address] [place] [address] Christina Adamson ANP [address] [place] [address] documented as of this encounter Visit Diagnoses Not on filedocumented in this encounter Care Teams Bobbin Winder Relationship Specialty Start Date End Date Christina Adamson ANP [address] [place] [address] PCP - General Family Medicine 03/10/20 documented as of this encounter
--- OUTSIDE RECORDS SUMMARY | 2025-06-13 21:57 | XMS_ITS | Clinical Summary ---
Author Organization [employer] Address [address] [facility] [address] [place] [address] Care Team Providers Care Custom Applicator Name Role Phone Christina Adamson Primary Care Provider [phone] Allergies Active Allergy Reactions Criticality Noted Date Comments Octacosanol 11/28/2023 Medications * This document contains information received from the source organization and may not represent a complete record from that organization. QUEtiapine (SEROquel) 200 MG tabletIndicatio ns:Bipolar affective disorder, current episode mixed, current episode severity unspecified (CMS/HCC) (HCC) take 1 tablet by oral route every day at bedtime 90 tablet 023 Active hydrOXYzine pamoate (Vistaril) 50 MG [...] TIMES DAILY. 180 capsule 1 025 Active folic acid (Folate) 400 MCG tabletIndicatio ns:Vitamin deficiency Take 1 tablet (0.4 mg) by mouth Once per day. 90 tablet 3 025 Active thiamine (Vitamin B-1) 100 MG tabletIndicatio ns:Vitamin deficiency Take 1 tablet (100 mg) by mouth Once per day. 90 tablet 3 025 Active Folate 400 MCG tabletIndicatio ns:Vitamin deficiency TAKE 1 TABLET BY ORAL ROUTE EVERY DAY FOR B VITAMIN 90 tablet 3 023 2024 Discontinued(R eorder (will not trigger notification to Pharmacy)) thiamine (Vitamin B-1) 100 MG tabletIndicatio ns:Vitamin deficiency TAKE 1 TABLET BY MOUTH EVERY DAY FOR B VITAMIN 90 tablet 3 023 2024 Discontinued(R eorder (will not trigger notification to Pharmacy)) methylPREDNISol one (Medrol Dospak) 4 MG tablets Follow schedule on package instructions 21 tablet 025 2024 Active Problems Problem Noted Date Diagnosed Date Positive SNOW (antinuclear antibody) 05/29/2025 Rash 05/13/2025 Assessment & Plan (05/13/2025 4:30 [...] 01/27/2012 Alcohol abuse 01/27/2012 Backache 01/27/2012 Encounters * This document contains information received from the source organization and may not represent a complete record from that organization. Date Type Department Care Team Description 06/13/2025 3:30 PM EST Clinical Support [address] [address] Rere Fuentes, HIRA Primary hypertension 06/13/2025 Travel 05/30/[address] [address] Christina Adamson ANP 05/29/2025 3:30 PM EST Office Visit [address] [address] Christina Adamson ANP Shortness of breath (Primary Dx); Mixed anxiety and depressive disorder; Tobacco dependence syndrome; Primary hypertension; Positive SNOW (antinuclear antibody); Petechial rash; Thrombocytopenia (CMS/HCC); Macrocytosis; Encounter for immunization; Vitamin deficiency 05/29/2025 Travel 05/28/[address] [address] Christina Adamson ANP chart prep 05/14/2025 3:00 PM EST Office Visit [facility] [address] [place] [address] Amando Allan DDS 05/13/2025 3:20 PM EST Office Visit [facility] [address] [place] [phone] Snow Kitchen MD Rash (Primary Dx); Primary hypertension 05/13/2025 Travel 05/13/[address] [address] Christina Adamson ANP Nurse Triage 05/08/2025 3:00 PM EDT Office Visit [facility] [address] [place] [address] Kit Lopez Dental calculus (Primary Dx); Dental caries; Periodontal disease 05/02/2025 Refill [facility] [address] [place] [address] Christina Adamson ANP Hypertriglyceridemia 05/02/2025 Refill [facility] [address] [place] [address] Ko Swann, DDS 05/01/2025 9:00 AM EDT Office Visit [facility] [address] [place] [address] Amando Allan, DDS 04/06/2025 Refill [facility] [address] [place] [address] Christina Adamson ANP Benign prostatic hyperplasia with urinary frequency 04/03/2025 Results Follow-Up [facility] [address] [place] [address] Christina Adamson ANP PSA,Total, Valproic Acid Total, Hemoglobin and Hematocrit 03/29/2025 Refill [facility] [address] [place] [address] Christina Adamson ANP Constipation, unspecified constipation type 03/29/2025 Refill [facility] [address] [place] [address] Snow Kitchen MD 03/28/2025 2:30 PM EDT Office Visit [facility] [address] [place] [address] Torsten Stephenson, AISLINN Dental caries (Primary Dx) from Last 3 Months Immunizations Immunization Administration Dates Next Due Hep B, adult 03/15/2012,07/25/2008 Influenza injectable quadriv alent IIV4 with preservative 05/06/2016,06/23/2015 Influenza injectable quadriv alent preservative free 05/27/2023,08/02/2022,06/23/2021,2019,07/05/2019,04/13/2018,04/25/2017 Influenza, IIV3, injectable 05/21/2014, 1 Influenza, Split (incl. tana fied surface antigen) 07/18/2013,03/15/2012 Influenza, seasonal, injecta ble, preservative free 05/29/2025,06/01/2024 Moderna Covid-19 Vaccine 12+ 06/23/2021,12/19/19 21,11/07/2020 Moderna Covid-19 Vaccine 6+ Bivalent 08/02/2022 Pfizer Covid-19 Vaccine 12+ 05/29/2025, 4,05/27/2023 Pneumococcal Conjugate PCV 20 05/27/2023 Td (adult), [...] with others, in a hotel, in a prison, living outside on the street, on a [...] Pulse 83 06/13/2025 3:58 PM EST Temperature 36.2 C (97.1 F) 05/29/2025 3:28 PM EST Respiratory Rate 18 06/13/2025 3:58 PM EST Oxygen Saturation 98% 06/13/2025 3:58 PM EST Inhaled Oxygen Concentration - - Weight 83.9 kg (185 lb) 05/29/2025 3:28 PM EST Height 180.3 cm (5' 11 ) 05/29/2025 3:28 PM EST Body Mass Index 25.8 05/29/2025 3:28 PM EST Plan of Treatment Upcoming Encounters Date Type Department Care Team (Late st Contact Info) Description 07/15/2025 2:15 PM EST Office Visit [facility] [address] [place] [address] Christina Adamson ANP [address] [place] [address] Health Maintenance Due Date Last Done Comments CT Colonography 1966 FIT DNA/Cologuard 1966 FIT 1966 FOBT 1966 Sigmoidoscopy 1966 Hepatitis B Vaccines (3 of 3 - 19+ 3-dose series) 05/10/2012 03/15/2012, 07/25/2008 Zoster Vaccines (1 of 2) 2016 Colonoscopy 03/12/2025 08/01/2020 Colorectal Cancer Screening 03/12/2025 Dental X-Ray: Bitewings 11/01/2025 11/01/19, 11/28/2023, 07/28/2023 Dental Oral Exam 11/07/2025 05/08/2025, , 11/28/2023 Dental Prophylaxis 11/07/2025 05/08/2025, 0 10/31/2024, 11/28/2023 DTaP/Tdap/Td Vaccines (3 - Td or Tdap) 11/08/2025 11/09/2015, 03/15/2012 Depression Monitoring 11/26/2025 05/29/2025, 025 Alcohol/Substance Use Screening 05/29/2026 05/29/2025 Disability Screening 05/29/2026 05/29/2025 SDOH Screening 05/29/2026 05/29/2025 Tobacco Screening 06/13/2026 06/13/2025 Lipid Panel 12/01/2026 12/01/2021 Dental X-Ray: Full Mouth 11/02/2027 10/31/2024 RSV Patients and Patients Aged 60 years or older (1 - 1-dose 75+ series) 2041 Pneumococcal Vaccine: 50+ Years Completed 05/27/2023 HIV Screening Completed 05/13/2025, 06/0 10/2023, 10/07/2020 Hepatitis C Screening Completed 05/13/2025 , 12/13/2023, 10/07/2020 COVID-19 Vaccine Completed 05/29/2025, , 05/27/2023, Additional history exists Influenza Vaccine Completed 05/29/2025, , 05/27/2023, Additional history exists HIB Vaccines Aged Out [...] Procedure Name Priority Date/Time Associated Diagnosis Comments IRON AND TOTAL IRON BINDING CAPACITY Routine 06/13/2025 3:58 PM EST Positive SNOW (antinuclear antibody) HEPATIC FUNCTION PANEL Routine 06/13/2025 3:58 PM EST Positive SNOW (antinuclear antibody) BASIC METABOLIC PANEL Routine 06/13/2025 3:58 PM EST Anemia, unspecified type RHEUMATOID FACTOR Routine 06/13/2025 3:5 3 PM EST Positive SNOW (antinuclear antibody) 3 B(V) RESIN-BASED COMPOSITE - 1 SURF, POSTERIOR Routine 05/14/2025 3:00 PM EST 4 B(V) RESIN-BASED COMPOSITE - 1 SURF, POSTERIOR Routine 05/14/2025 3:00 PM EST 12 B(V) RESIN-BASED COMPOSITE - 1 SURF, POSTERIOR Routine 05/14/2025 3:00 PM EST CASE PRESENTATION, DETAILED AND EXTENSIVE TREATMENT PLANNING Routine 05/14/2025 3:00 PM EST SNOW SCREEN, IFA, W/REFL TITER AND PATTERN Routine 05/13/2025 3:52 PM EST Rash CBC WITH AUTO DIFFERENTIAL Routine 05/13/2025 3:52 PM EST Rash SED RATE BY MODIFIED WESTERGREN Routine 05/13/2025 3:52 PM EST Rash C-REACTIVE PROTEIN Routine 05/13/2025 3: 52 PM EST Rash SYPHILIS SCREEN Routine 05/13/2025 3:52 PM EST Rash HIV 1/2 ANTIGEN/ANTIBODY, FOURTH GENERATION W/RFL Routine 05/13/2025 3:52 PM EST Rash HEPATITIS PANEL, GENERAL Routine 05/13/2025 3:52 PM EST Rash URINALYSIS, COMPLETE, WITH REFLEX TO CULTURE Routine 05/13/2025 3:51 PM EST Rash PERIODIC ORAL EVALUATION - ESTABLISHED PATIENT Routine [...] 03/20/2025 3:09 PM EDT Prostate cancer screening INTRAORAL - COMPLETE SERIES OF RADIOGRAPHIC IMAGES Routine 10/31/2024 2:00 PM EDT Dental caries Periodontal disease LIPID PANEL, STANDARD Routine 12/01/2021 11:20 AM EDT COLONOSCOPY Routine 08/01/2020 from Last 3 Months or Most Recently Relevant to Health Maintenance Results * Iron And Total Iron Binding Capacity (06/13/2025 3:58 PM EST) Iron 92 45 - 160 mcg/dL [facility] Total Iron Binding Capacity 292 228 - 428 mcg/dL [facility] Percent Iron Saturation 32 15 - 50 % [facility] Unsaturated Iron Binding 200 ug/dL [facility] Blood Venous blood specimen / Unknown 06/13/2025 3:58 PM EST 06/13/2025 5:48 PM EST Christina Adamson ANP LAB BLOOD ORDERABLES Final Resul t Performing Organization Address [facility] de Phone Number [facility] [address] [place] [phone] * Hepatic Function Panel (06/13/2025 3:58 PM EST) Bilirubin, Total 0.3 0.0 - 1.0 mg/dL [facility] Bilirubin, Direct 0.1 0.0 - 0.5 mg/dL [facility] Aspartate Amino Transferase 20 5 - 37 U/L [facility] Alanine Aminotransferase 16 0 - 40 U/L [facility] Total Protein 6.5 6.5 - 8.0 g/dL [facility] Albumin Level 4.4 3.5 - 5.0 g/dL [facility] Alkaline Phosphatase 79 39 - 117 U/L [facility] Blood Venous blood specimen / Unknown 06/13/2025 3:58 PM EST 06/13/2025 5:48 PM EST us Christina Adamson ANP LAB BLOOD ORDERABLES Final Resul t Performing Organization Address [facility] Co de Phone Number [facility] [address] [place] [phone] * (ABNORMAL) Basic Metabolic Panel (06/13/2025 3:58 PM EST) Sodium 145 135 - 145 mmol/L [facility] Potassium 4.4 3.3 - 5.1 mmol/L [facility] Chloride 110(H) 96 - 108 mmol/L [facility] Carbon Dioxide 28 22 - 29 mmol/L [facility] Anion Gap 11(L) 12 - 20 [facility] Urea Nitrogen (BUN) 15 9 - 16 mg/dL [facility] Creatinine, Serum 1.07 0.5 - 1.4 mg/dL [facility] Estimated Glomerular Filt Rate >60 [facility] Comment:Chronic Kidney Disea se: Estimated GFR < 60 mL/min/[id number] Kidney Disease: Estimated GFR < 15 mL/min/1.73m2 Glucose 104 60 - 115 mg/dL [facility] Calcium 9.1 8.4 - 10.2 mg/dL [facility] Blood Venous blood specimen / Unknown 06/13/2025 3:58 PM EST 06/13/2025 5:48 PM EST Christina Adamson [facility] LAB BLOOD ORDERABLES Final Resul t Performing Organization Address [facility] Phone Number [facility] [address] [place] [phone] * Rheumatoid Factor (06/13/2025 3:53 PM EST) Rheumatoid Factor <13.0 <15.0 IU/mL [facility] Blood Venous blood specimen / Unknown 06/13/2025 3:53 PM EST 06/13/2025 5:48 PM EST Christina Adamson [facility] LAB BLOOD ORDERABLES Final Resul t Performing Organization Address [facility] de Phone Number [facility] [address] [place] [phone] * Syphilis Screen (05/13/2025 3:52 PM EST) Pathologist [facility] Syphilis Screen Nonreactive Nonreactive [facility] Blood 05/13/2025 3:52 PM EST 05/13/2025 5:59 PM EST us Snow Kitchen MD LAB BLOOD ORDERABLES Fin al Result Performing Organization Address [facility] Co de Phone Number [facility] [address] [place] [phone] * Hepatitis Panel, General (05/13/2025 3:52 PM EST) [facility] Hepatitis A IgM Nonreactive Nonreactive [facility] Comment:IgM antibodies to WILSON V not detected; does not exclude earlyacute or recovered HAV infection. ~Hepatitis B Surface Antibody GRAYZONE Nonreactive [facility] Comment:GRAYZONE: 8.00 mIU/m L TO 11.99 mIU/mLTHE IMMUNE STATUS OF THE INDIVIDUAL SHOULD BE FURTHERASSESSED BY CONSIDERING OTHER FACTORS, SUCH CLINICALSTATUS, FOLLOW-UP TESTING, ASSOCIATED RISK FACTORS, AND THEUSE OF ADDITIONAL DIAGNOSTIC INFORMATION. Hepatitis B Core Antibody Nonreactive Nonreactive [facility] Hepatitis C Antibody Nonreactive Nonreactive [facility] Comment:Antibodies to HCV no t detected; does not exclude early acuteHCV infection. Hepatitis B Surface Ag Negative Negative [facility] Blood 05/13/2025 3:52 PM EST 05/13/2025 5:59 PM EST us Snow Kitchen MD LAB BLOOD ORDERABLES Fin al Result Performing Organization Address [facility] Co de Phone Number [facility] [address] [place] [phone] * (ABNORMAL) CBC auto differential (05/13/2025 3:52 PM EST) [facility] White Blood Count 5.9 4.8 - 10.8 X10*3/uL [facility] Red Blood Count 3.64(L) 4.60 - 5.80 X10*6/uL [facility] Hemoglobin 12.9(L) 14.0 - 18.0 g/dl [facility] Hematocrit 38.3(L) 42.0 - 52.0 % [facility] Mean Corpuscular Volume 105.2(H) 80.0 - 98.0 fL [facility] Mean Corpuscular Hemoglobin 35.4(H) 27.0 - 33.0 pg [facility] Mean Corpuscular HGB Conc 33.7 31.0 - 36.0 g/dl [facility] Red Cell Distribution Width 14.5 11.0 - 16.0 % [facility] Platelet Count 146(L) 160 - 400 X10*3/uL [facility] Mean Platelet Volume 10.1 9.4 - 12.4 fL [facility] Neutrophils Percent Auto 55.1 45 - 73 % [facility] Imm Gran Pct Auto 0.5(H) 0.0 - 0.4 % [facility] Lymphocytes Percent Auto 31.7 20 - 40 % [facility] Monocytes Percent Auto 7.8 2 - 11 % [facility] Eosinophils Percent Auto 4.4(H) 0 - 4 % [facility] Basophils Percent Auto 0.5 0 - 2 % [facility] NRBC Pct Auto 0.0 0.0 - 0.2 /100WBC [facility] Neutrophils Absolute Auto 3.2 2.0 - 8.3 x10*3/uL [facility] Imm Gran Abs Auto 0.03 0.00 - 0.03 X10*3/uL [facility] Lymphocytes Absolute Auto 1.9 1.2 - 4.9 X10*3/uL [facility] Monocytes Absolute Auto 0.5 0.1 - 1.2 X10*3/uL [facility] Eosinophils Absolute Auto 0.3 0.0 - 0.4 X10*3/uL [facility] Basophils Absolute Auto 0.0 0.0 - 0.2 X10*3/uL [facility] NRBC Abs Auto 0.000 0.0 - 0.012 X10*3/uL [facility] Blood Venous blood specimen / Unknown 05/13/2025 3:52 PM EST 05/13/2025 5:59 PM EST Snow Kitchen MD LAB BLOOD ORDERABLES Fin al Result Performing Organization Address City/[facility]/ZIP Co de Phone Number [facility] [address] [place] [phone] * HIV-1/2 Antigen and Antibodies, Fourth Generation, with Reflexes (05/13/2025 3:52 PM EST) HIV AB/AG Nonreactive Nonreactive [facility] Comment:HIV-1 p24 Ag and/or HIV-1/HIV-2 Ab not detected.A test result that is nonreactive does not exclude thepossibility of exposure to or infection with HIV-1 and/orHIV-2. Nonreactive results in this assay for individualswith prior exposure to HIV-1 and/or HIV-2 may be due toantigen and antibody levels that are below the limit ofdetection of this assay.[employer] HIV Ag/Ab Combo assay result andsupplemental assay results should be interpreted inconjunction with the patient's clinical presentation,history and other laboratory results. If the results areinconsistent with clinical evidence, additional testing issuggested to confirm the result. Blood Venous blood specimen / Unknown 05/13/2025 3:52 PM EST 05/13/2025 5:59 PM EST Snow Kitchen MD LAB BLOOD ORDERABLES Fin al Result Performing Organization Address [facility]/ZIP Co de Phone Number [facility] [address] [place] [phone] * Sed Rate by Modified Devendraren (05/13/2025 3:52 PM EST) Erythrocyte Sedimentation Rate 3 0 - 15 MM/HR [facility] Comment:Patients with polycy themia and many hemoglobin abnormalitiesmay have depressed sed rates whereas patients with anemiamay have elevated sed rates. Blood Venous blood specimen / Unknown 05/13/2025 3:52 PM EST 05/13/2025 5:59 PM EST Snow Kitchen MD LAB BLOOD ORDERABLES Fin al Result Performing Organization Address [facility] Co de Phone Number [facility] [address] [place] [phone] * (ABNORMAL) C-reactive Protein (05/13/2025 3:52 PM EST) C Reactive Protein 0.94(H) < or = 0.50 mg/dL [facility] Blood Venous blood specimen / Unknown 05/13/2025 3:52 PM EST 05/13/2025 5:59 PM EST Snow Kitchen MD LAB BLOOD ORDERABLES Fin al Result Performing Organization Address [facility] de Phone Number [facility] [address] [place] [phone] * (ABNORMAL) SNOW Screen,IFA, with Reflex to Titer and Pattern (05/13/2025 3:52 PM EST) Anti Nuclear Antibody Screen POSITIVE( A) NEGATIVE [facility] Comment:SNOW IFA is a first l ine screen for detecting thepresence of up to approximately 150 autoantibodies invarious autoimmune diseases. A positive SNOW IFA resultis suggestive of autoimmune disease and reflexes totiter and pattern. Further laboratory testing may beconsidered if clinically indicated.For additional information, please refer tohttp://education.[employer]/faq/GHP939(This link is being provided for informational/educational purposes only.) SNOW Titer 1:1280(A) titer [facility] Comment:Reference Range <1:4 0 Negative 1:40-1:80 Low Antibody Level >1:80 Elevated Antibody Level SNOW Pattern Mitotic, Centrosom e(A) [facility] Comment:Distinct centrioles (1-2/cell) in cytoplasm and at thepoles of mitotic spindle. Pattern is rare in systemicsclerosis, Raynaud's phenomenon, and some infections(viral and mycoplasma).AC-24: CentrosomeInternational Consensus on SNOW Patterns(https://doi.org/10.1515/hxby-1257-1320)THIS TEST WAS PERFORMED AT:[facility] [place] [id number] COVARRUBIAS MD SNOW Titer 2 TNP [facility] SNOW Pattern 2 TNP [facility] SNOW TITER 3 TNP [facility] SNOW PATTERN 3 TNP [facility] Blood Venous blood specimen / Unknown 05/13/2025 3:52 PM EST 05/13/2025 5:59 PM EST Snow Kitchen MD LAB BLOOD ORDERABLES Fin al Result [facility] [address] [place] [phone] * (ABNORMAL) Urinalysis, Complete, with Reflex to Culture (05/13/2025 3:51 PM EST) Color Urine Yellow [facility] Appearance Urine Clear [facility] PH 7.5 5.0 - 9.0 [facility] Glucose Urine UA Negative Negative mg/dL [facility] Urine Blood Trace(A) Negative [facility] Specific [place] - Urine 1.010 1.005 - 1.025 [facility] Urine Protein Negative Neg-Trace mg/dL [facility] Urine Ketones Negative Negative mg/dL [facility] Nitrite Urine Negative Negative [facility] Leukocyte Esterase Urine Negative Negative [facility] RBC Urine 0-2 0 - 2 /HPF [facility] Urine WBC 0-5 0 - 5 /HPF [facility] Urine Squamous Epithelial Cell 0-2 0 - 2 /HPF [facility] Urine Bacteria None Seen None Seen [facility] Hyaline Casts, Urine 0-2 0 - 2 /LPF [facility] Urine Urine specimen obtained by clean catch procedure / Unknown 05/13/2025 3:51 PM EST 05/13/2025 5:59 PM EST Narrative [facility] - 05/13/2025 6:15 PM EST Urine, Clean Catch us Snow Kitchen MD LAB URINE ORDERABLES Fin al Result Performing Organization Address [facility] Co de Phone Number [facility] [address] [place] [phone] * (ABNORMAL) Hemoglobin and Hematocrit (03/20/2025 3:09 PM EDT) Hemoglobin 12.5(L) 14.0 - 18.0 g/dl [facility] Hematocrit 37.2(L) 42.0 - 52.0 % [facility] Blood Venous blood specimen / Unknown 03/20/2025 3:09 PM EDT 03/20/2025 3:59 PM EDT Christina Adamson ANP LAB BLOOD ORDERABLES Final Resul t Performing Organization Address [facility] de Phone Number [facility] [address] [place] [phone] * PSA,Total (03/20/2025 3:09 PM EDT) Prostate Specific Antigen 0.52 <0.05 - 4.0 ng/mL [facility] Comment:PSA methodology: Abb radha Alinity i ChemiluminescentMicroparticle Immunoassay (CMIA) Blood Venous blood specimen / Unknown 03/20/2025 3:09 PM EDT 03/20/2025 3:59 PM EDT Christina Adamson ANP LAB BLOOD ORDERABLES Final Resul t Performing Organization Address [facility] Co de Phone Number [facility] [address] [place] [phone] * Valproic Acid Total (03/20/2025 3:09 PM EDT) Valproate 66.9 50.0 - 100.0 mcg/mL [facility] Blood Venous blood specimen / Unknown 03/20/2025 3:09 PM EDT 03/20/2025 3:59 PM EDT Christina Adamson [facility] LAB BLOOD ORDERABLES Final Resul t Performing Organization Address [facility] Co de Phone Number [facility] [address] [place] [phone] * (ABNORMAL) LIPID PANEL, STANDARD (12/01/2021 11:20 AM EDT) Pathologist [facility] Chol/HDLC Ratio 4.3 <5.0 (calc) [facility] LDL-C. Rojelio LEBRON et al. TAYLOR. 2013;310(19): 7003-3864 (http://education.MagTag.[employer]/faq/MNO386) Non-HDL Cholesterol 140(H) <130 mg/dL (calc) [facility] Comment: For patients with diabetes plus 1 major ASCVD risk factor, treating to a non-HDL-C goal of <100 mg/dL (LDL-C of <70 mg/dL) is considered a therapeutic option. Triglycerides 157(H) <150 mg/dL [facility] 12/01/2021 11:2 0 AM EDT us Christina KEE LAB BLOOD ORDERABLES Final Resul t Performing Organization Address City/[facility]/ZIP Co de Phone Number [facility] [address] [place] [address], * (ABNORMAL) Colonoscopy (08/01/2020) Colonoscopy Abnormal(A ) Normal Historical Provider MD HEALTH MAINTENANCE Final Result from Last 3 Months or Most Recently Relevant to Health Maintenance [place] [address] [place] [address] [address] [facility] Care Teams Custom Applicator Relationship Specialty Start Date End Date Christina Adamson ANP [address] [place] [address] PCP - General Family Medicine 03/10/20
--- OUTSIDE RECORDS SUMMARY | 2025-06-13 21:57 | XMS_ITS | Encounter Summary ---
Author Organization [employer] [facility] Address [address] 7t [place] [address] Care Team Providers Care It Support Analyst Name Role Phone Christina Adamson Primary Care Provider [phone] Encounter Details Date Type Department Care Team (Latest Contact Info) Description 05/18/2022 Abstract [facility] CONVERSIONS Dental, Provider, DDS [...] Description 07/15/2025 2:15 PM EST Office Visit [facility] MEDICINE [address] [place] [address] Christina Adamson ANP [address] [place] [address] documented as of this encounter Visit Diagnoses Not on filedocumented in this encounter Care Teams It Support Analyst Relationship Specialty Start Date End Date Christina Adamson ANP [address] [place] [address] PCP - General Family Medicine 03/10/20 documented as of this encounter
--- OUTSIDE RECORDS SUMMARY | 2025-06-13 21:57 | XMS_ITS | Encounter Summary ---
Author Organization [employer] Address [address] [facility] [address] [address] [facility] [address] [place] [address] Care Team Providers Care Aluminum Molder Name Role Phone Snow Christina KEE Primary Care Provider [phone] Reason for Visit * Reason Comments Med Refill Encounter Details Date Type Department Care Team ([facility] Contact Info) Description 09/29/2022 Refill [facility] MEDICINE [address] [place] [address] [phone] Robinson Rodriguez MD [address] [place], [place] [phone] Bipolar affective disorder, current episode mixed, current [...] Upcoming Encounters Date Type Department Care Team ([facility] Contact Info) Description 07/15/2025 2:15 PM EST Office Visit [facility] MEDICINE [address] [place] [address] Christina Adamson ANP [address] [place] [address] documented as of this encounter Visit Diagnoses Diagnosis Bipolar affective disorder, current episode mixed, current episode severity unspecified (CMS/HCC) (HCC) documented in this encounter Care Teams Aluminum Molder Relationship Specialty Start Date End Date Christina Adamson ANP [address] [place] [address] PCP - General Family Medicine 03/10/20 documented as of this encounter
--- OUTSIDE RECORDS SUMMARY | 2025-06-13 21:57 | XMS_ITS | Encounter Summary ---
Author Organization [facility] Address [address] [facility] 7 [place] [address] Care Team Providers Care Inspector Conveyor Line Name Role Phone Christina Adamson Primary Care Provider [phone] Reason for Visit * Reason Comments Med Refill Encounter Details Date Type Department Care Team (Late st Contact Info) Description 09/08/2022 Refill [facility] MEDICINE [address] [place] [address] [phone] Robinson Rodriguez MD [address] [place] [address] [phone] Bipolar affective disorder, current episode mixed, current [...] Description 07/15/2025 2:15 PM EST Office Visit [facility] MEDICINE [address] [place] [address] [phone] Christina Adamson ANP [address] [place], [place] [phone] documented as of this encounter Visit Diagnoses Diagnosis Bipolar affective disorder, current episode mixed, current episode severity unspecified (CMS/HCC) (HCC) documented in this encounter Care Teams Inspector Conveyor Line Relationship Specialty Start Date End Date Chrsitina Adamson ANP [address] [place] [address] PCP - General Family Medicine 03/10/20 documented as of this encounter
--- OUTSIDE RECORDS SUMMARY | 2025-06-13 21:57 | XMS_ITS | Encounter Summary ---
Author Organization [employer] Address [address] [place] [address] Care Team Providers Care Community Assistant Name Role Phone Christina Adamson Primary Care Provider [phone] Reason for Visit * Reason Comments Med Refill Encounter Details Date Type Department Care Team ([facility] st Contact Info) Description 06/03/2023 Refill [facility] MEDICINE [address] [place], [place] [phone] Christina Adamson ANP [address] [place] [address] Bipolar affective disorder, current episode mixed, current [...] Description 07/15/2025 2:15 PM EST Office Visit [facility] MEDICINE [address] [place] [phone] Christina Adamson ANP [address] [place] [phone] documented as of this encounter Visit Diagnoses Diagnosis Bipolar affective disorder, current episode mixed, current episode severity unspecified (CMS/HCC) (HCC) Hypercholesterolemia Pure hypercholesterolemia documented in this encounter Care Teams Community Assistant Relationship Specialty Start Date End Date Christina Adamson ANP [address] [place] [phone] PCP - General Family Medicine 03/10/20 documented as of this encounter
--- OUTSIDE RECORDS SUMMARY | 2025-06-13 21:57 | XMS_ITS | Encounter Summary ---
Author Organization [employer] Address [address] [place] [address] Care Team Providers Care Film Or Tape Librarian Name Role Phone Christina Adamson Primary Care Provider [phone] Reason for Visit * Reason Comments Med Refill Encounter Details Date Type Department Care Team ([facility] st Contact Info) Description 05/02/2025 Refill [facility]AL [address] [place] [address] Ko Swann DDS [address] [place] [address] Social History Tobacco Use Types Packs/Day Years [...] the past 12 months, has t he [employer] gas, oil or water company threatened to [...] Description 07/15/2025 2:15 PM EST Office Visit [facility] MEDICINE [address] [place] [address] Christina Adamson ANP [address] [place] [address] documented as of this encounter Visit Diagnoses Not on filedocumented in this encounter Additional Health Concerns Assessment Noted Time PHQ-9 Depression Total Score: 5 06/01/20 24 3:43 PM EST documented as of this encounter Care Teams Film Or Tape Librarian Relationship Specialty Start Date End Date Christina Adamson ANP [address] [place] [id number] PCP - General Family Medicine 03/10/20 documented as of this encounter
--- OUTSIDE RECORDS SUMMARY | 2025-06-13 21:57 | XMS_ITS | Encounter Summary ---
Author Organization [employer] Address [address] 7[address] [place] [address] Care Team Providers Care Catalog Librarian Name Role Phone Christina Adamson Primary Care Provider [phone] Encounter Details Date Type Department Care Team (Late Contact Info) Description 09/08/2022 Orders Only [facility] MED & PEDS [address] [place], [place] [phone] Phyllis Camacho LPN Social History Tobacco Use [...] Description 07/15/2025 2:15 PM EST Office Visit [facility] MEDICINE [address] [place] [address] Christina Adamson ANP [address] [place] [address] documented as of this encounter Visit Diagnoses Not on filedocumented in this encounter Care Teams Catalog Librarian Relationship Specialty Start Date End Date Christina Adamson ANP [address] [place] [address] PCP - General Family Medicine 03/10/20 documented as of this encounter
[2025-06-17 22:08] LABS: Proteinase 3 PR3 Antibodies <1.0 AI
== END 2025-06-13 15:50 | disposition home or self-care (01) ==
LOC: HO.HHCL 15:49
PROVIDERS: PCP Nurse Practitioner Primary Care; Visit Provider Nurse Practitioner Primary Care
DX: Z01.84 Encounter for antibody response examination (principal); D64.9 Anemia, unspecified; R76.89 Other specified abnormal immunological findings in serum
CPT/HCPCS: 36415; 80048; 80076; 83540; 86021; 86431